=== PATIENT | female | born 1925 | race Caucasian/White ===

== ENCOUNTER 2016-12-28 08:38 | Emergency (ER) | payer MEDICARE, BC ==
--- NOTE | 2016-12-28 08:52 | EDM.PDOC ---
ED HPI SEIZURE COMPLAINT - General Chief Complaint: Syncope Stated Complaint: SYNCOPE Time Seen by Provider: 12/28/16 08:46 Source of Information: Reports: Patient History Limitations: Reports: No limitations - History of Present Illness INITIAL COMMENTS - FREE TEXT/NARRATIVE: 89-year-old female presents to the ED in the accompaniement of her daughter.She was at [facility] and seated when she suddenly passed out. She was unresponsive for about 30 seconds. She was quite pale and a little cool and clammy at the time. Know she is a diabetic and takes insulin.his blood sugars are checked every other day. They were not checked this morning. She received 14 units of Levemir insulin last evening. No insulin this morning. She has not had her breakfast yet this morning. She believes that the [facility] nurses gave her medications and insulin before she went to [facility]. She feels completely back to normal now. Patient's son-in-law and daughter carried her out of the [facility] but she was able to walk with their help. She was dressed warmly as it's quite cool today. She stayed in the seated position when she passed out and he did not lay her down. Bedside blood sugar here is 153.initial blood pressure here was 104 systolic. Orthostatic BPs are strongly positive with systolic falling as low as 83 with standing. Plan she'll be given 200 mL normal saline bolus. Then 150 mils per hour. Symptom Onset Date: 12/28/16 Symptom Onset Time: 08:20 Timing/Duration: Reports: seconds: (is unresponsive for a good 30 seconds.), resolved prior to arrival Event Occurred (Where): other ([facility]) Event (Witnessed/Unwitnessed): witnessed (by daughter and son-in-law) Location: Reports: generalized (complete loss of consciousness without any shaking to suggest seizure activity.) Severity: severe Context: Reports: other (prior to going to [facility]). Denies: recent ETOH, new/ change in medications, missed med dose(s), illness, trauma, photo stimulation, activity/exercise Pre Event Symptom(s): Reports: no other symptoms Event Symptoms: Reports: no other symptoms Post Event Symptoms: Reports: other (together with general weakness.). Denies: confused, combative, lethargic, headache, altered speech Associated Injuries: Reports: other (no injuries occurred as she remained seated during the episode.) Treatments STAMP COLLECTOR: Reports: Other (see below) (none) - Related Data Allergies/ADRs: Allergies Allergy/AdvReac Type Severity Reaction Status Date / Time No Known Allergies Allergy Verified 12/28/16 08:47 Home Meds: Home Meds Acetaminophen [Tylenol Extra Strength] 500 mg PO Q6HR PRN 07/27/16 [History] Ascorbic Acid [C-500] 500 mg PO DAILY 07/27/16 [History] Aspirin 81 mg PO DAILY 07/27/16 [History] B2/Vit A,C & E/Lut/Zeaxanth/Mn [Icaps] 1 each PO DAILY 07/27/16 [History] Carvedilol [Carvedilol] 1 tab PO BID 07/27/16 [History] Cyanocobalamin (Vitamin B-12) [Cyanocobalamin Injection] 1,000 mcg IJ ASDIRECTED 07/27/16 [History] Denosumab [Prolia] 60 mg SUBCUT ASDIRECTED 07/27/16 [History] Diltiazem HCl [Diltiazem 24Hr Cd] 1 tab PO DAILY 07/27/16 [History] Donepezil [Aricept] 5 mg PO BEDTIME 07/27/16 [History] Furosemide [Furosemide] 1 tab PO DAILY 07/27/16 [History] Furosemide [Furosemide] 1 tab PO WITHLUNCH 07/27/16 [History] Insulin Glarg,Human.Rec.Analog [LantUS Solostar] 14 units SQ BEDTIME 07/27/16 [ History] Iron Polysaccharide Complex [Poly-Iron] 150 mg PO DAILY 07/27/16 [History] Losartan [Cozaar] 1 tab PO DAILY 07/27/16 [History] Multivitamin [Daily Mirtha] 1 each PO DAILY 07/27/16 [History] Omeprazole [Omeprazole] 1 tab PO DAILY 07/27/16 [History] Travoprost [Travatan Z] 1 drop EYEBOTH BEDTIME 07/27/16 [History] atorvaSTATin [Lipitor] 20 mg PO BEDTIME 07/27/16 [History] glipiZIDE [Glipizide] 1 tab PO DAILY 07/27/16 [History] Past Medical History Cardiovascular History: Reports: Heart Failure, Hypertension Genitourinary History: Reports: Chronic renal insuffiency, Urinary incontinence (stress and urge component.) Musculoskeletal History: Reports: Osteoarthritis, Osteoporosis Neurological History: Reports: Alzheimers disease (mild) Endocrine/Metabolic History: Reports: Diabetes, type II - Past Surgical History Female Surgical History: Reports: Hysterectomy, Oophorectomy Social & Family History - Tobacco Use Smoking Status *Q: Never Smoker Second Hand Smoke Exposure: No - Caffeine Use Caffeine Use: Reports: Coffee - Recreational Drug Use Recreational Drug Use: No - Living Situation & Occupation Living situation: Reports: extended care facility Occupation: retired ED ROS GENERAL - Review of Systems Review Of Systems: See Below Constitutional: Reports: no symptoms, weakness. Denies: fever, chills, malaise , fatigue (still feels a little weak), decreased appetite, weight loss HEENT: Reports: No symptoms Respiratory: Reports: no symptoms Cardiovascular: Reports: No symptoms, Blood pressure problem, Dyspnea on exertion. Denies: Chest pain, Claudication, Edema, Lightheadedness, Orthopnea ( hypertension usually well-controlled with medication) Endocrine: Reports: fatigue GI/Abdominal: Reports: Constipation : Reports: frequency (stress and urge componentis on Lasix), incontinence Musculoskeletal: Reports: neck pain, shoulder pain, back pain, joint pain Skin: Reports: no symptoms (knees and hips.) Neurological: Reports: difficulty walking (walk slowly due to arthritis in her knees and hips.). Denies: numbness, pre-existing deficit, seizure, syncope, tingling (mild confusion at times), tremors, weakness, change in speech Psychiatric: Reports: No symptoms Hematologic/Lymphatic: Reports: no symptoms - Physical Exam Exam: See Below Exam Limited By: Other General Appearance: alert, WD/WN (quite pleasant. She tries to answer most questions to the best of her ability. Daughter fills in multiple blanks.), no apparent distress, other (does not feel cool or clammy.) Eye Exam: bilateral eye: normal inspection Throat/Mouth: Normal inspection, Normal lips, Normal oropharynx Head Exam: atraumatic, normocephalic Neck: normal inspection, supple, non-tender, full range of motion. No: lymphadenopathy (L), lymphadenopathy (R) Respiratory/Chest: no respiratory distress, lungs clear, normal breath sounds, no accessory muscle use Cardiovascular: normal peripheral pulses, regular rate, rhythm, no edema, no gallop, no JVD, no murmur GI/Abdominal: normal bowel sounds, soft, non tender, no organomegaly Neuro Exam (Abbreviated): alert, oriented, CN II-XII intact, normal cognition, no motor/sensory deficits Back Exam: normal inspection, full range of motion. No: CVA tenderness (L), CVA tenderness (R) Extremities: normal inspection, normal range of motion, no pedal edema, normal capillary refill, other Psychiatric: normal affect (these are both slightly warm to palpation.), normal mood Skin Exam: Warm, Dry, Intact, Normal color, No rash EKG INTERPRETATION EKG Date: 12/28/16 Time: 09:09 Rhythm: NSR Rate (beats/min): 59 [place]: normal P-wave: present QRS: other (early R wave transition.) ST-T: normal QT: prolonged (moderately prolonged) Course - Vital Signs Last Recorded V/S: Last Vital Signs Temp 36.1 C 12/28/16 08:47 Pulse 63 12/28/16 08:47 Resp 15 12/28/16 08:47 BP 122/42 L 12/28/16 08:47 Pulse Ox 93 L 12/28/16 09:22 Orthostatic Blood Pressure [ 83/47 Standing] Orthostatic Blood Pressure [ 98/43 Sitting] Orthostatic Blood Pressure [ 101/53 Supine] - Orders/Labs/Meds Orders: Active Orders 24 hr Category Date Time Status EKG Documentation Completion [RC] STAT Care 12/28/16 08:53 Active Chest 1V Frontal [CR] Stat Exams 12/28/16 08:53 Taken CULTURE BLOOD [BC] Stat Lab 12/28/16 10:45 Received CULTURE BLOOD [BC] Stat Lab 12/28/16 10:52 Received Sodium Chloride 0.9% [Normal Saline] 1,000 ml Med 12/28/16 09:00 Active IV ASDIRECTED Blood Culture x2 Reflex Set [OM.PC] Stat Oth 12/28/16 10:33 Ordered Medication Orders Sodium Chloride (Normal Saline) 1,000 mls @ 150 mls/hr IV ASDIRECTED CARLEY Last Admin: 12/28/16 09:19 Dose: 150 mls/hr Labs: Laboratory Tests 12/28/16 12/28/16 12/28/16 Range/Units 08:45 08:55 08:55 WBC 9.17 (3.98-10.04) K/mm3 RBC 4.14 (3.98-5.22) M/mm3 Hgb 12.6 (11.2-15.7) gm/L Hct 39.4 (34.1-44.9) % MCV 95.2 H (79.4-94.8) fl MCH 30.4 (25.6-32.2) pg MCHC 32.0 L (32.2-35.5) g/dl RDW Std Deviation 49.0 H (36.4-46.3) fL Plt Count 194 (182-369) K/mm3 MPV 10.5 (9.4-12.3) fl Neutrophils % (Manual) 66 H (40-60) % Band Neutrophils % 2 (0-10) % Lymphocytes % (Manual) 17 L (20-40) % Atypical Lymphs % 0 % Monocytes % (Manual) 12 H (2-10) % Eosinophils % (Manual) 3 (0.7-5.8) % Basophils % (Manual) 0 L (0.1-1.2) Platelet Estimate Adequate RBC Morph Comment Normal PT 10.7 (8.0-13.0) SECONDS INR 0.98 D-Dimer, Quantitative (0.19-0.59) mg/L Sodium (136-145) mEq/L Potassium (3.5-5.1) mEq/L Chloride (98-107) mEq/L Carbon Dioxide (21-32) mEq/L Anion Gap (5-15) BUN (7-18) mg/dL Creatinine (0.55-1.02) mg/dL Est Cr Clr Drug Dosing mL/min Estimated GFR (MDRD) (>60) mL/min BUN/Creatinine Ratio (14-18) Glucose (83-115) mg/dL POC Glucose 158 H (83-110) mg/dL Calcium (8.5-10.1) mg/dL Total Bilirubin (0.2-1.0) mg/dL AST (15-37) U/L ALT (14-59) U/L Alkaline Phosphatase (46-116) U/L CK-MB (CK-2) (0-3.6) ng/ml Troponin I (0.00-0.056) ng/mL B-Natriuretic Peptide (0-100) pg/mL Total Protein (6.4-8.2) g/dl Albumin (3.4-5.0) g/dl Globulin gm/dL Albumin/Globulin Ratio (1-2) Urine Color (Yellow) Urine Appearance (Clear) Urine pH (5.0-8.0) Ur Specific [place] (1.005-1.030) Urine Protein (Negative) Urine Glucose (UA) (Negative) Urine Ketones (Negative) Urine Occult Blood (Negative) Urine Nitrite (Negative) Urine Bilirubin (Negative) Urine Urobilinogen (0.2-1.0) Ur Leukocyte Esterase (Negative) Urine RBC (0-5) /hpf Urine WBC (0-5) /hpf Ur Squamous Epith Cells (0-5) /hpf Urine Bacteria (FEW) /hpf Urine Mucus (FEW) /hpf 12/28/16 12/28/16 12/28/16 Range/Units 08:55 08:55 08:55 WBC (3.98-10.04) K/mm3 RBC (3.98-5.22) M/mm3 Hgb (11.2-15.7) gm/L Hct (34.1-44.9) % MCV (79.4-94.8) fl MCH (25.6-32.2) pg MCHC (32.2-35.5) g/dl RDW Std Deviation (36.4-46.3) fL Plt Count (182-369) K/mm3 MPV (9.4-12.3) fl Neutrophils % (Manual) (40-60) % Band Neutrophils % (0-10) % Lymphocytes % (Manual) (20-40) % Atypical Lymphs % % Monocytes % (Manual) (2-10) % Eosinophils % (Manual) (0.7-5.8) % Basophils % (Manual) (0.1-1.2) Platelet Estimate RBC Morph Comment PT (8.0-13.0) SECONDS INR D-Dimer, Quantitative 0.64 H (0.19-0.59) mg/L Sodium 140 (136-145) mEq/L Potassium 4.1 (3.5-5.1) mEq/L Chloride 100 (98-107) mEq/L Carbon Dioxide 30 (21-32) mEq/L Anion Gap 14.1 (5-15) BUN 27 H (7-18) mg/dL Creatinine 1.4 H (0.55-1.02) mg/dL Est Cr Clr Drug Dosing 21.55 mL/min Estimated GFR (MDRD) 35 (>60) mL/min BUN/Creatinine Ratio 19.3 H (14-18) Glucose 153 H (83-115) mg/dL POC Glucose (83-110) mg/dL Calcium 9.1 (8.5-10.1) mg/dL Total Bilirubin 0.5 (0.2-1.0) mg/dL AST 58 H (15-37) U/L ALT 86 H (14-59) U/L Alkaline Phosphatase 222 H (46-116) U/L CK-MB (CK-2) 0.9 (0-3.6) ng/ml Troponin I < 0.017 (0.00-0.056) ng/mL B-Natriuretic Peptide 108 H (0-100) pg/mL Total Protein 7.7 (6.4-8.2) g/dl Albumin 3.2 L (3.4-5.0) g/dl Globulin 4.5 gm/dL Albumin/Globulin Ratio 0.7 L (1-2) Urine Color (Yellow) Urine Appearance (Clear) Urine pH (5.0-8.0) Ur Specific [place] (1.005-1.030) Urine Protein (Negative) Urine Glucose (UA) (Negative) Urine Ketones (Negative) Urine Occult Blood (Negative) Urine Nitrite (Negative) Urine Bilirubin (Negative) Urine Urobilinogen (0.2-1.0) Ur Leukocyte Esterase (Negative) Urine RBC (0-5) /hpf Urine WBC (0-5) /hpf Ur Squamous Epith Cells (0-5) /hpf Urine Bacteria (FEW) /hpf Urine Mucus (FEW) /hpf 12/28/16 Range/Units 11:05 WBC (3.98-10.04) K/mm3 RBC (3.98-5.22) M/mm3 Hgb (11.2-15.7) gm/L Hct (34.1-44.9) % MCV (79.4-94.8) fl MCH (25.6-32.2) pg MCHC (32.2-35.5) g/dl RDW Std Deviation (36.4-46.3) fL Plt Count (182-369) K/mm3 MPV (9.4-12.3) fl Neutrophils % (Manual) (40-60) % Band Neutrophils % (0-10) % Lymphocytes % (Manual) (20-40) % Atypical Lymphs % % Monocytes % (Manual) (2-10) % Eosinophils % (Manual) (0.7-5.8) % Basophils % (Manual) (0.1-1.2) Platelet Estimate RBC Morph Comment PT (8.0-13.0) SECONDS INR D-Dimer, Quantitative (0.19-0.59) mg/L Sodium (136-145) mEq/L Potassium (3.5-5.1) mEq/L Chloride (98-107) mEq/L Carbon Dioxide (21-32) mEq/L Anion Gap (5-15) BUN (7-18) mg/dL Creatinine (0.55-1.02) mg/dL Est Cr Clr Drug Dosing mL/min Estimated GFR (MDRD) (>60) mL/min BUN/Creatinine Ratio (14-18) Glucose (83-115) mg/dL POC Glucose (83-110) mg/dL Calcium (8.5-10.1) mg/dL Total Bilirubin (0.2-1.0) mg/dL AST (15-37) U/L ALT (14-59) U/L Alkaline Phosphatase (46-116) U/L CK-MB (CK-2) (0-3.6) ng/ml Troponin I (0.00-0.056) ng/mL B-Natriuretic Peptide (0-100) pg/mL Total Protein (6.4-8.2) g/dl Albumin (3.4-5.0) g/dl Globulin gm/dL Albumin/Globulin Ratio (1-2) Urine Color Yellow (Yellow) Urine Appearance Slt cloudy H (Clear) Urine pH 7.0 (5.0-8.0) Ur Specific [place] 1.020 (1.005-1.030) Urine Protein Negative (Negative) Urine Glucose (UA) Negative (Negative) Urine Ketones Negative (Negative) Urine Occult Blood 2+ H (Negative) Urine Nitrite Negative (Negative) Urine Bilirubin Negative (Negative) Urine Urobilinogen 1.0 (0.2-1.0) Ur Leukocyte Esterase 2+ H (Negative) Urine RBC 75-100 H (0-5) /hpf Urine WBC >100 H (0-5) /hpf Ur Squamous Epith Cells 0-5 (0-5) /hpf Urine Bacteria Many H (FEW) /hpf Urine Mucus Not seen (FEW) /hpf Meds: Medications Generic Name Dose Route Start Last Admin Trade Name Radha PRN Reason Stop Dose Admin Sodium Chloride 1,000 mls @ 150 mls/hr 12/28/16 09:00 12/28/16 09:19 Normal Saline IV 150 mls/hr ASDIRECTED CARLEY Administration Discontinued Medications Generic Name Dose Route Start Last Admin Trade Name Radha PRN Reason Stop Dose Admin Sodium Chloride 250 mls @ 999 mls/hr 12/28/16 09:25 Normal Saline IV 12/28/16 09:40 .BOLUS ONE Levofloxacin/Dextrose 750 mg/ 150 mls @ 100 mls/hr 12/28/16 10:33 12/28/16 11 :25 Premix IV 12/28/16 12:02 Not Given ONETIME ONE Sodium Chloride 200 mls @ 999 mls/hr 12/28/16 11:10 Normal Saline IV 12/28/16 11:22 .BOLUS ONE - Radiology Interpretation Free Text/Narrative:: 89-year-old female presents the ED after passing out while seated in [facility] this morning. She passed out for at least 30 seconds. History suggests that she was with her daughter and son-in-law. [facility] She receives both insulin and diabetic medications for diabetes control. Apparently she did not have any breakfast. She did have all her medications which included antihypertensives. On examination here her vital signs are stable with a bedside blood sugar 153. Blood pressure initially was 104/56 She is in sinus rhythm. No chest pain complaints. No neurological deficits. Question of a hypoglycemic reading and with adrenaline response returned to a normal blood sugar. Plan orthostatic BPs will be done. Routine labs will be done to include cardiac markers. ECG will be done IV will be normal saline 150 mils per hour and we'll get her some breakfast. - Re-Assessments/Exams Free Text/Narrative Re-Assessment/Exam: 12/28/16 09:31orthostatic BPs are strongly positive with a systolic falling as low as 83 on standing. Associated dizziness. Plan she'll be given 200 mils normal saline bolus. Will give her a diabetic breakfast tray. 12/28/16 10:28 blood pressure remains low at 96/44. Sinus bradycardia at 55 per minute.is x-ray revealed moderate cardiomegaly. There is slight elevation of the right hemidiaphragm. Mild diffuse vascular congestion pattern. 12/28/16 10:39 labs revealed a normal white count of 9.17 with 66% neutrophils and 2% bands. Hemoglobin is 12.6 hematocrit of 39.4 platelets 194,000. Coags are normal with a PT of 10.7 and 8 INR 0.98. D-dimer is mildly elevated 0.64 but age-adjusted is well within normal range. Serum sodium is 140 potassium 4.1 port 100 bicarbonate is 30. Anion gap is 14.1 BUN is 27. AST is mildly elevated at 58 .ALT mildly elevated at 86. Alkaline phosphatase is elevated to 22. Troponin is less than 0.017 CK-MB less than 0.9. Due to the look of her x- ray I will order a BNP. It looks like she is just on to much medication to lower her blood pressure acutely this morning causing her to have a hypotensive episode and transient loss of consciousness. She ate all of her breakfast without any difficulties. 12/28/16 11:00 Will get up and retest her orthostatic BPs. 12/28/16 11:20she was found to still be a little orthostatic with BP dropping to 88 systolic standing. It was 106 sitting. We'll give her another 200 mils of normal saline. Her BNP did come back at 108. Looking at her antihypertensives she is on carvedilol 6.25 mg PEG twice a day Cardizem 120 mg once daily and losartan 50 mg once daily morning. I will change the losartan to evening dose. Her blood pressure probably stays right around 100 205. If she remains hypotensive she required discontinuation of will certain I suspect. A combination of high-dose Lasix and Cardizem in the morning is likely continuing to hypotension over the next hour or 2. Followup with personal physician if any further problems occur Departure - Departure Time of Disposition: 11:22 Disposition: Home, Self-Care 01 Condition: fair Clinical Impression: Syncope due to orthostatic hypotension, Volume depletion Syncope Qualifiers: Syncope type: unspecified Qualified Code(s): R55 - Syncope and collapse Instructions: Orthostatic Hypotension, Syncope, [id number] Referrals: Bob Ling MD [Primary Care Provider] - Forms: ED Department Discharge Additional Instructions: evaluation emergent today in regards to fainting spell that occurred while seated in [facility] this morning. Loss of consciousness estimated to be around 30 seconds. Identified to have a very low blood pressure upon arrival in the emergency room. You received your normal dosages of medications this morning without eating any breakfast and then off to [facility]. Appears that the current combination of medications is too much at one time. You received IV fluids while in the ED to improve your blood pressure back towards normal. I would suggest at this time that you continue the carvedilol 6.25 mg twice daily as per usual. Cardizem 120 mg should perhaps be taken at suppertime instead of the am. . Losartan 50 mg to be continued in the morning. I believe a combination of high-dose Lasix in the morning with the cardia side likely caused low blood pressure and cause of collapse this morning.followup with personal physician within the next 7-10 days for blood pressure reviewed. Pressure should be checked both lying seated and standing. - My Orders Last 24 Hours: My Active Orders 12/28/16 08:53 EKG Documentation Completion [RC] STAT Chest 1V Frontal [CR] Stat 12/28/16 09:00 Sodium Chloride 0.9% [Normal Saline] 1,000 ml IV ASDIRECTED 12/28/16 10:33 Blood Culture x2 Reflex Set [OM.PC] Stat 12/28/16 10:45 CULTURE BLOOD [BC] Stat 12/28/16 10:52 CULTURE BLOOD [BC] Stat - Assessment/Plan Last 24 Hours: My Active Orders 12/28/16 08:53 EKG Documentation Completion [RC] STAT Chest 1V Frontal [CR] Stat 12/28/16 09:00 Sodium Chloride 0.9% [Normal Saline] 1,000 ml IV ASDIRECTED 12/28/16 10:33 Blood Culture x2 Reflex Set [OM.PC] Stat 12/28/16 10:45 CULTURE BLOOD [BC] Stat 12/28/16 10:52 CULTURE BLOOD [BC] Stat
[2016-12-28] MEDS ORDERED: Sodium Chloride 0.9% 1,000 ML IV SCH (09:00)
[2016-12-28 09:04] VITALS: BP 122/42
[2016-12-28] MEDS ORDERED: Sodium Chloride 0.9% 250 ML IV ONE (09:25)
[2016-12-28] MEDS ORDERED: Levofloxacin/Dextrose 5%-Water 750 MG in Premix Bag 1 BAG IV ONE (10:33)
[2016-12-28] MEDS ORDERED: Sodium Chloride 0.9% 200 ML IV ONE (11:10)
--- NOTE | 2016-12-29 07:15 | CR ---
Chest: Portable view of the chest was obtained. Comparison: Previous chest x-ray of 08/07/13. Heart is enlarged. Pulmonary vessels are felt to be within normal limits. Slight interstitial change is seen felt to be chronic. No acute infiltrates are seen. 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 Previous resection of the distal left clavicle is seen. Bony structures are osteopenic. Impression: 1. Findings as described above felt to be stable. 2. Nothing acute is identified on portable chest x-ray. Diagnostic code #2
== END 2016-12-28 12:10 | disposition home or self-care (01) ==
LOC: JD.ED 08:38
DX: I95.1 Orthostatic hypotension (principal); E86.9 Volume depletion, unspecified; I13.0 Hypertensive heart and chronic kidney disease with heart failure and stage 1 through stage 4 chronic kidney disease, or unspecified chronic kidney disease; E11.22 Type 2 diabetes mellitus with diabetic chronic kidney disease; N18.9 Chronic kidney disease, unspecified; I50.9 Heart failure, unspecified; Z79.4 Long term (current) use of insulin; G30.9 Alzheimer's disease, unspecified; F02.80 Dementia in other diseases classified elsewhere, unspecified severity, without behavioral disturbance, psychotic disturbance, mood disturbance, and anxiety; Z79.82 Long term (current) use of aspirin; Z79.899 Other long term (current) drug therapy; K59.00 Constipation, unspecified; R35.0 Frequency of micturition; R32 Unspecified urinary incontinence; M54.2 Cervicalgia; M25.519 Pain in unspecified shoulder; M54.9 Dorsalgia, unspecified; M17.9 Osteoarthritis of knee, unspecified; M16.10 Unilateral primary osteoarthritis, unspecified hip
CPT/HCPCS: 36415; 71010; 80053; 81001; 82553; 82962; 83880; 84484; 85025; 85379; 85610; 87040; 87086; 93005; 96360; 96361; 99284; J7040; 87088; 87186; 99285

== ENCOUNTER 2017-07-24 08:54 | Inpatient (IN) | payer MEDICARE, BC ==
--- NOTE | 2017-07-24 09:07 | EDM.PDOC ---
ED HPI GENERAL MEDICAL PROBLEM - General Chief Complaint: Fever Stated Complaint: [facility] Time Seen by Provider: 07/24/17 09:06 - History of Present Illness INITIAL COMMENTS - FREE TEXT/NARRATIVE: 89-year-old female presents to the ED from [place] [facility]. She apparently spiked a fever during the night. She was fine yesterday. History from the patient is very limited because of dementia. He answers I think I'm okay to most questions. Last time she was seen through the ED with fever she had a significant urinary tract infection growing out Klebsiella pneumoniae. She denies any dysuria urgency or frequency but she is incontinent a good deal of time. She denies cough or sputum production. Daughter states that she was okay last night when she seen her. Barely she did receive Tylenol sometime this morning but were not sure when.BP on arrival is 92/41. Is currently 89/70. Heart rate is 62 and sinus. Onset: Today, Other Onset Date: 07/24/17 Duration: Hour(s): Location: Reports: Generalized (fever with low blood pressure) Quality: Reports: Other (denies any pain.) Improves with: Reports: None Worsens with: Reports: None Context: Reports: Other (usually gets around without a walker). Denies: Activity, Exercise, Lifting, Sick Contact, Trauma Associated Symptoms: Reports: Confusion ( or cane.), Malaise, Shortness of Breath (chronically). Denies: Chest Pain (significant confusion at this time.) , Cough, cough w sputum, Nausea/Vomiting, Rash, Seizure Treatments SUPERVISOR LOADING: Reports: Acetaminophen (were not sure what time she was given this this morning.) - Related Data Allergies Allergy/AdvReac Type Severity Reaction Status Date / Time Penicillins Allergy Cannot Verified 07/24/17 12:43 Remember Home Meds: Home Meds Acetaminophen [Tylenol Extra Strength] 500 mg PO Q6HR PRN 07/27/16 [History] Ascorbic Acid [C-500] 500 mg PO DAILY 07/27/16 [History] Aspirin 81 mg PO DAILY 07/27/16 [History] B2/Vit A,C & E/Lut/Zeaxanth/Mn [Icaps] 1 each PO DAILY 07/27/16 [History] Carvedilol [Carvedilol] 1 tab PO BID 07/27/16 [History] Cyanocobalamin (Vitamin B-12) [Cyanocobalamin Injection] 1,000 mcg IJ ASDIRECTED 07/27/16 [History] Denosumab [Prolia] 60 mg SUBCUT ASDIRECTED 07/27/16 [History] Diltiazem HCl [Diltiazem 24Hr Cd] 1 tab PO DAILY 07/27/16 [History] Donepezil [Aricept] 5 mg PO BEDTIME 07/27/16 [History] Furosemide [Furosemide] 1 tab PO DAILY 07/27/16 [History] Furosemide [Furosemide] 1 tab PO WITHLUNCH 07/27/16 [History] Insulin Glarg,Human.Rec.Analog [LantUS Solostar] 14 units SQ BEDTIME 07/27/16 [ History] Iron Polysaccharide Complex [Poly-Iron] 150 mg PO DAILY 07/27/16 [History] Losartan [Cozaar] 1 tab PO DAILY 07/27/16 [History] Multivitamin [Daily Mirtha] 1 each PO DAILY 07/27/16 [History] Omeprazole [Omeprazole] 1 tab PO DAILY 07/27/16 [History] Travoprost [Travatan Z] 1 drop EYEBOTH BEDTIME 07/27/16 [History] atorvaSTATin [Lipitor] 20 mg PO BEDTIME 07/27/16 [History] glipiZIDE [Glipizide] 1 tab PO DAILY 07/27/16 [History] Past Medical History Cardiovascular History: Reports: Heart Failure, Hypertension Genitourinary History: Reports: Chronic Renal Insuffiency, Urinary Incontinence , UTI, Recurrent Musculoskeletal History: Reports: Osteoarthritis, Osteoporosis Neurological History: Reports: Alzheimers Disease Endocrine/Metabolic History: Reports: Diabetes, Type II, Osteoporosis ( currently on osteoporosis treatment.), Vitamin D Deficiency - Past Surgical History Female Surgical History: Reports: Hysterectomy, Oophorectomy Social & Family History - Tobacco Use Smoking Status *Q: Never Smoker Second Hand Smoke Exposure: No - Caffeine Use Caffeine Use: Reports: Coffee - Recreational Drug Use Recreational Drug Use: No - Living Situation & Occupation Living situation: Reports: Extended Care Facility Occupation: Retired Social History Comment[facility] ROS GENERAL - Review of Systems Review Of Systems: Unable To Obtain (not able to obtain with any degree of certainty as the patient has significant confusion and organic brain disease. History was obtained primarily from the daughter which was limited.) ED EXAM, SEPSIS - Physical Exam Exam: See Below Exam Limited By: Altered Mental Status General Appearance: Alert, WD/WN, No Apparent Distress, Other (she does feel quite warm to palpation particularly her hands and abdomen.) Eye Exam: Bilateral Eye: Normal Inspection Throat/Mouth: Other (tongue is mildly dry and coated. She wears dentures.) Head: Atraumatic, Normocephalic Neck: Normal Inspection, Supple, Non-Tender, Full Range of Motion. No: Carotid Bruit, Lymphadenopathy (L), Lymphadenopathy (R) Respiratory/Chest: No Respiratory Distress, Lungs Clear, Normal Breath Sounds, No Accessory Muscle Use, Chest Non-Tender, Respiratory Distress Cardiovascular: Regular Rate, Rhythm, No Edema, No Gallop, No Murmur, No Rub. No: Normal Peripheral Pulses Peripheral Pulses: 1+: Posterior Tibial (L), Posterior Tibial (R), Dorsalis Pedis (L), Dorsalis Pedis (R) GI/Abdominal Exam: Normal Bowel Sounds, Soft, Non-Tender, No Organomegaly, Other (mildly obese. Evidence of previous cholecystectomy with open surgery.) Back: Normal Inspection, Full Range of Motion. No: CVA Tenderness (L), CVA Tenderness (R) Extremities: Normal Inspection, Normal Range of Motion, Non-Tender, No Pedal Edema Neurological: Alert, Oriented, CN II-XII Intact, Other (patient is pleasantly confused.) Psychiatric: Normal Affect, Normal Mood Skin: Warm, Dry, Intact, Normal Color, No Rash EKG INTERPRETATION EKG Date: 07/24/17 Time: 09:30 Rhythm: NSR Rate (Beats/Min): 64 [place]: Normal P-Wave: Present QRS: Normal ST-T: Other (nonspecific T-wave flattening in the anterio lateral leads. No signs of ischemia) QT: Prolonged (mildly prolonged) Course - Vital Signs Last Recorded V/S: Last Vital Signs Temp 37.3 C 07/24/17 09:41 Pulse 68 07/24/17 09:05 Resp 12 07/24/17 09:05 BP 92/41 L 07/24/17 09:05 Pulse Ox 95 07/24/17 09:05 - Orders/Labs/Meds Orders: Active Orders 24 hr Category Date Time Status EKG Documentation Completion [RC] STAT Care 07/24/17 09:17 Active Abdomen Ltd [US] Stat Exams 07/24/17 11:06 Taken CULTURE BLOOD [BC] Stat Lab 07/24/17 10:00 Received CULTURE BLOOD [BC] Stat Lab 07/24/17 10:15 Received CULTURE URINE [RM] Stat Lab 07/24/17 09:25 Received Sodium Chloride 0.9% [Normal Saline] 1,000 ml Med 07/24/17 09:15 Active IV ASDIRECTED Blood Culture x2 Reflex Set [OM.PC] Stat Oth 07/24/17 09:18 Ordered Medication Orders Sodium Chloride (Normal Saline) 1,000 mls @ 150 mls/hr IV ASDIRECTED CARLEY Last Admin: 07/24/17 09:42 Dose: 150 mls/hr Labs: Laboratory Tests 07/24/17 07/24/17 07/24/17 Range/Units 09:25 10:00 10:00 WBC 13.70 H (3.98-10.04) K/mm3 RBC 3.74 L (3.98-5.22) M/mm3 Hgb 11.3 (11.2-15.7) gm/L Hct 35.7 (34.1-44.9) % MCV 95.5 H (79.4-94.8) fl MCH 30.2 (25.6-32.2) pg MCHC 31.7 L (32.2-35.5) g/dl RDW Std Deviation 47.1 H (36.4-46.3) fL Plt Count 195 (182-369) K/mm3 MPV 9.9 (9.4-12.3) fl Neutrophils % (Manual) 84 H (40-60) % Band Neutrophils % 6 (0-10) % Lymphocytes % (Manual) 7 L (20-40) % Atypical Lymphs % 0 % Monocytes % (Manual) 2 (2-10) % Eosinophils % (Manual) 0 L (0.7-5.8) % Basophils % (Manual) 1 (0.1-1.2) Platelet Estimate Adequate Plt Morphology Comment Normal Anisocytosis 1+ slight Microcytosis 1+ slight RBC Morph Comment Not Reportable PT 11.2 (8.0-13.0) SECONDS INR 1.03 Sodium (136-145) mEq/L Potassium (3.5-5.1) mEq/L Chloride (98-107) mEq/L Carbon Dioxide (21-32) mEq/L Anion Gap (5-15) BUN (7-18) mg/dL Creatinine (0.55-1.02) mg/dL Est Cr Clr Drug Dosing mL/min Estimated GFR (MDRD) (>60) mL/min BUN/Creatinine Ratio (14-18) Glucose (83-115) mg/dL Lactic Acid (0.4-2.0) mmol/L Calcium (8.5-10.1) mg/dL Magnesium (1.8-2.4) mg/dl Total Bilirubin (0.2-1.0) mg/dL GGT (5-55) U/L AST (15-37) U/L ALT (14-59) U/L Alkaline Phosphatase (46-116) U/L CK-MB (CK-2) (0-3.6) ng/ml Troponin I (0.00-0.056) ng/mL C-Reactive Protein (<1.0) mg/dL NT-Pro-B Natriuret Pep (0-450) pg/mL Total Protein (6.4-8.2) g/dl Albumin (3.4-5.0) g/dl Globulin gm/dL Albumin/Globulin Ratio (1-2) Urine Color Light yellow (Yellow) Urine Appearance Slt cloudy H (Clear) Urine pH 7.0 (5.0-8.0) Ur Specific [place] 1.020 (1.005-1.030) Urine Protein 1+ H (Negative) Urine Glucose (UA) Negative (Negative) Urine Ketones Negative (Negative) Urine Occult Blood Trace-intact H (Negative) Urine Nitrite Negative (Negative) Urine Bilirubin Negative (Negative) Urine Urobilinogen 1.0 (0.2-1.0) Ur Leukocyte Esterase Trace H (Negative) Urine RBC 0-5 (0-5) /hpf Urine WBC 5-10 H (0-5) /hpf Ur Epithelial Cells 0-5 (0-5) /hpf Urine Bacteria Many H (FEW) /hpf Urine Mucus Not seen (FEW) /hpf 07/24/17 07/24/17 07/24/17 Range/Units 10:00 10:00 10:06 WBC (3.98-10.04) K/mm3 RBC (3.98-5.22) M/mm3 Hgb (11.2-15.7) gm/L Hct (34.1-44.9) % MCV (79.4-94.8) fl MCH (25.6-32.2) pg MCHC (32.2-35.5) g/dl RDW Std Deviation (36.4-46.3) fL Plt Count (182-369) K/mm3 MPV (9.4-12.3) fl Neutrophils % (Manual) (40-60) % Band Neutrophils % (0-10) % Lymphocytes % (Manual) (20-40) % Atypical Lymphs % % Monocytes % (Manual) (2-10) % Eosinophils % (Manual) (0.7-5.8) % Basophils % (Manual) (0.1-1.2) Platelet Estimate Plt Morphology Comment Anisocytosis Microcytosis RBC Morph Comment PT (8.0-13.0) SECONDS INR Sodium 141 (136-145) mEq/L Potassium 4.0 (3.5-5.1) mEq/L Chloride 104 (98-107) mEq/L Carbon Dioxide 27 (21-32) mEq/L Anion Gap 14.0 (5-15) BUN 24 H (7-18) mg/dL Creatinine 1.3 H (0.55-1.02) mg/dL Est Cr Clr Drug Dosing 24.27 mL/min Estimated GFR (MDRD) 39 (>60) mL/min BUN/Creatinine Ratio 18.5 H (14-18) Glucose 151 H (83-115) mg/dL Lactic Acid 2.2 H (0.4-2.0) mmol/L Calcium 8.6 (8.5-10.1) mg/dL Magnesium 1.9 (1.8-2.4) mg/dl Total Bilirubin 0.7 (0.2-1.0) mg/dL GGT 122 H (5-55) U/L AST 201 H (15-37) U/L ALT 169 H (14-59) U/L Alkaline Phosphatase 207 H (46-116) U/L CK-MB (CK-2) 0.8 (0-3.6) ng/ml Troponin I 0.194 H* (0.00-0.056) ng/mL C-Reactive Protein 1.0 (<1.0) mg/dL NT-Pro-B Natriuret Pep 603 H (0-450) pg/mL Total Protein 7.0 (6.4-8.2) g/dl Albumin 3.0 L (3.4-5.0) g/dl Globulin 4.0 gm/dL Albumin/Globulin Ratio 0.8 L (1-2) Urine Color (Yellow) Urine Appearance (Clear) Urine pH (5.0-8.0) Ur Specific [place] (1.005-1.030) Urine Protein (Negative) Urine Glucose (UA) (Negative) Urine Ketones (Negative) Urine Occult Blood (Negative) Urine Nitrite (Negative) Urine Bilirubin (Negative) Urine Urobilinogen (0.2-1.0) Ur Leukocyte Esterase (Negative) Urine RBC (0-5) /hpf Urine WBC (0-5) /hpf Ur Epithelial Cells (0-5) /hpf Urine Bacteria (FEW) /hpf Urine Mucus (FEW) /hpf Meds: Medications Generic Name Dose Route Start Last Admin Trade Name Freq PRN Reason Stop Dose Admin Sodium Chloride 1,000 mls @ 150 mls/hr 07/24/17 09:15 07/24/17 09:42 Normal Saline IV 150 mls/hr ASDIRECTED CARLEY Administration Discontinued Medications Generic Name Dose Route Start Last Admin Trade Name Freq PRN Reason Stop Dose Admin Ceftriaxone Sodium 1 gm/ 100 mls @ 200 mls/hr 07/24/17 12:08 07/24/17 12:45 Sodium Chloride IV 07/24/17 12:37 200 mls/hr ONETIME ONE Administration Ibuprofen 600 mg 07/24/17 09:16 07/24/17 09:41 Motrin PO 07/24/17 09:17 600 mg ONETIME ONE Administration - Radiology Interpretation Free Text/Narrative:: 89-year-old female presents to the ED per ambulance from [place] which is an assisted living program.apparently she spiked a fever during the night. This is contributed to increased confusion this morning. She has multiple comorbidities. She has known ischemic heart disease and congestive heart failure. She is using insulin for type 2 diabetes control for many years. She has known renal insufficiency. She has known recurrent urinary tract infections. Rotation her blood pressure is low at 89/59. Heart rate is 72 and sinus sats are 93% on room air. Patient is quite warm to palpation will be given Motrin 600 mg by mouth. IV started with normal saline at 150 mils per hour she will receive a 250 milk bolus because of the hypotension. Lab work to include blood cultures 2 and lactic acid. Urinalysis will be obtained by catheterization. One view chest x-ray will be done portably. - Re-Assessments/Exams Free Text/Narrative Re-Assessment/Exam: 07/24/17 10:10 chest x-ray --one view portable revealsmoderate cardiomegaly. Blunting of left costophrenic angle. There is diffuse vascular congestion poor inspirational film.her ECG had revealed sinus rhythm at 64 per minute with no signs of ischemia but diffuse nonspecific changes throughout the baseline with T -wave flattening anterior lateral leads 07/24/17 10:54:Labs are back. White cell count is 13.70 with a left shift of 84 % neutrophils and 6% band cells. Hemoglobin is low at 11.3 with hematocrit of 35.7. MCV is mildly elevated at 95.5. Platelet count normal 195,000. Coags reveal a PT of 11.2 and INR 1.03. Chemistry shows a sodium of 141 potassium 4.0. Cord 104 bicarbonate 27. Anion gap normal at 14.0 BUNs slightly elevated at 24. Creatinine 1.3. EGFR is 39. Glucose is 151. AST is elevated at 201 with ALT of 169 and alk phosphatase elevated at 207. Reason for this is unclear. Is unlikely to be due to hepatic vascular congestion. I will have a GGT ordered to make sure the alkaline phosphatase is coming from the liver. Otherwise imaging of her liver is indicated. Troponin I is 0.194 i.e. elevated suggesting recent myocardial infarction. CK-MB fraction 0.8. CRP is less than 1.0 BNP is 603 which is only mildly elevated. Urinalysis shows slightly cloudy with 5-10+5 per field and many bacteria. Urine culture ordered.I will order an ultrasound on her liver to see if we can determine if there is dilated hepatic ducts as well as potential for metastatic disease. 07/24/17 11:47 Family members are back and I was able to speak with 2 daughters.they do not have power of patent prosecution attorney the other sister does whom is in [place]. They will try and determine her CODE STATUS is whether or not she is DO NOT RESUSCITATE and whether or not they wish to have her sent out for cardiology consultation. 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 07/24/17 12:10 lactic acid is elevated at 2.2. Her GGT was elevated 122 confirming the elevated alk phosphatase is coming out of her liver. 07/24/17 13:49ultrasound of the liver has been completed. No signs of intrahepatic biliary tree dilatation. Common bile duct measures 6 mm there is evidence of air in the biliary tree consistent with previous cholecystectomy. No stones or dilatation of the common bile duct visualized.family is now decided that they will allow her to be admitted here and are unlikely to want to pursue cardiology evaluation. They elected for medical management of her suspected recent myocardial infarction. I will therefore contact Dr. Rice-- senior talent management consultant hospitalist in this regard. Departure - Departure Time of Disposition: 14:00 Disposition: Admitted As Inpatient 68 Condition: Fair Clinical Impression: Abnormal transaminases, Elevated troponin, Non-STEMI (non-ST elevated myocardial infarction) Fever Qualifiers: Encounter type: initial encounter Urinary tract infection Qualifiers: Urinary tract infection type: acute pyelonephritis Qualified Code(s): N10 - Acute pyelonephritis CHF (congestive heart failure) Qualifiers: Congestive heart failure type: diastolic Congestive heart failure chronicity: acute on chronic Qualified Code(s): I50.33 - Acute on chronic diastolic ( congestive) heart failure Dementia Qualifiers: Dementia type: Alzheimer's disease Alzheimer's disease onset: late-onset Dementia behavioral disturbance: without behavioral disturbance Qualified Code(s ): G30.1 - Alzheimer's disease with late onset; F02.80 - Dementia in other diseases classified elsewhere without behavioral disturbance; F02.80 - Dementia in other diseases classified elsewhere without behavioral disturbance; F02.80 - Dementia in other diseases classified elsewhere without behavioral disturbance - Discharge Information Referrals: Bob Ling MD [Primary Care Provider] - Forms: ED Department Discharge - My Orders Last 24 Hours: My Active Orders 07/24/17 09:15 Sodium Chloride 0.9% [Normal Saline] 1,000 ml IV ASDIRECTED 07/24/17 09:17 EKG Documentation Completion [RC] STAT 07/24/17 09:18 Blood Culture x2 Reflex Set [OM.PC] Stat 07/24/17 09:25 CULTURE URINE [RM] Stat 07/24/17 10:00 CULTURE BLOOD [BC] Stat 07/24/17 10:15 CULTURE BLOOD [BC] Stat 07/24/17 11:06 Abdomen Ltd [US] Stat - Assessment/Plan Last 24 Hours: My Active Orders 07/24/17 09:15 Sodium Chloride 0.9% [Normal Saline] 1,000 ml IV ASDIRECTED 07/24/17 09:17 EKG Documentation Completion [RC] STAT 07/24/17 09:18 Blood Culture x2 Reflex Set [OM.PC] Stat 07/24/17 09:25 CULTURE URINE [RM] Stat 07/24/17 10:00 CULTURE BLOOD [BC] Stat 07/24/17 10:15 CULTURE BLOOD [BC] Stat 07/24/17 11:06 Abdomen Ltd [US] Stat
[2017-07-24] MEDS ORDERED: Sodium Chloride 0.9% 1,000 ML IV SCH ×2 (09:15→18:00)
[2017-07-24] MEDS ORDERED: Ibuprofen 600 MG Tab PO ONE (09:16)
--- NOTE | 2017-07-24 10:48 | CR ---
Chest: Portable view of the chest was obtained. Comparison: Previous chest x-ray of 12/28/16. Heart is enlarged. Lung markings mildly increased most of which appear chronic. Difficult to exclude mild superimposed pulmonary vascular congestion. Scoliosis and degenerative change is noted within the spine. Degenerative change is noted within the right shoulder. Impression: 1. Cardiomegaly. 2. Increased central lung markings most of which appear to be chronic but difficult to exclude mild superimposed pulmonary vascular congestion. Diagnostic code #3
[2017-07-24] MEDS ORDERED: cefTRIAXone 1 GM in Sodium Chloride 0.9% 100 ML IV ONE (12:08)
--- NOTE | 2017-07-24 14:21 | US ---
Limited abdominal ultrasound: Multiple real-time images of the upper right abdomen were obtained. Liver shows no focal abnormality. Slight echogenic areas are seen within the liver next to veins raising the possibility of intrahepatic biliary air. Common bile duct measures normal at 6 mm. Right kidney shows no hydronephrosis. Right kidney shows a cyst measuring 2.7 cm. Gallbladder not present compatible with previous cholecystectomy. Visualized portions of the pancreas are within normal limits. Impression: 1. Previous cholecystectomy. 2. Questionable air within the intrahepatic biliary tree. No common bile duct dilatation is seen. If this possible intrahepatic biliary air is of any clinical significance, noncontrast CT study of the liver would confirm. 3. No additional abnormality is seen on right upper quadrant abdominal ultrasound. Diagnostic code #3 I agree with preliminary report issued by [employer] ([facility] report finalized on 07/24/17, 2:45 PM Central Time)
[2017-07-24] MEDS ORDERED: Pneumococcal Polyvalent-23 Vaccine 0.5 ML SDV IM ONE (14:52)
[2017-07-24] MEDS ORDERED: FLU Vacc TS 2017-18 (65yr UP)/PF 180 MCG/0.5 ML Syringe IM ONE (15:00)
[2017-07-24] MEDS ORDERED: Morphine 2 MG/ML Syringe IVPUSH PRN (17:46)
[2017-07-24] MEDS ORDERED: Ondansetron 4 MG Tab.DIS PO PRN (17:46)
[2017-07-24] MEDS ORDERED: Acetaminophen/HYDROcodone 325-5 MG Tab PO PRN ×2 (17:46)
[2017-07-24] MEDS ORDERED: Docusate Sodium 100 MG Cap PO PRN (17:46)
[2017-07-24] MEDS ORDERED: Acetaminophen 325 MG Tab PO PRN (17:46)
[2017-07-24] MEDS ORDERED: Polyethylene Glycol 3350 Powder 17 GM Packet PO PRN (17:46)
[2017-07-24] MEDS ORDERED: Magnesium Hydroxide 400 MG/5 ML Susp 30 ML Cup PO PRN (17:46)
[2017-07-24] MEDS ORDERED: Ondansetron 4 MG/2 ML SDV IV PRN (17:46)
[2017-07-24] MEDS ORDERED: Temazepam 7.5 MG Cap PO PRN (17:46)
[2017-07-24] MEDS ORDERED: Denosumab 60 MG/1 ML Syringe SUBCUT SCH (18:00)
--- NOTE | 2017-07-24 18:17 | PCM.HP ---
H&P History of Present Illness - General Date of Service: 07/24/17 Admit Problem/Dx: Admission Diagnosis/Problem Admission Diagnosis/Problem Fever Source of Information: Patient, Other (ER physician's notes) History Limitations: Reports: No Limitations - History of Present Illness Initial Comments - Free Text/Narative: Patient is an 89 year old woman with multiple comorbidities including congestive heart failure, ischemic heart disease, Alzheimer's disease, a resident of [facility] who was transferred to the emergency room for evaluation of complaints of fever. Patient insists that she feels very well and denies any problems although she is said to be confused but she is oriented to time place and person. She was said to have spiked fever at the assisted living facility overnight and was then brought to the emergency room for further evaluation. At the emergency room, vital signs revealed a temperature of 37.2C and laboratory investigations revealed a WBC of 13.7, BUNs /creatinine of 24/1.3, lactic acid level of 2.2, AST of 201, etiology of 169, alkaline phosphatase of 207. Urinalysis revealed presence of leukocyte esterase and bacteria suspicious for urinary tract infection. She received 1 g of Rocephin and blood as well as urine samples were collected for culture. Review of patient's medical records showed that she was seen at this facility for evaluation of fever in December and was found to have urinary tract infection due to Klebsiella pneumonia sensitive to Rocephin. She will be admitted for IV antibiotic therapy. - Related Data Allergies/Adverse Reactions: Allergies Allergy/AdvReac Type Severity Reaction Status Date / Time Penicillins Allergy Cannot Verified 07/24/17 12:43 Remember Home Medications: Home Meds Ascorbic Acid [C-500] 500 mg PO DAILY 07/27/16 [History] Aspirin 81 mg PO DAILY 07/27/16 [History] B2/Vit A,C & E/Lut/Zeaxanth/Mn [Icaps] 1 each PO DAILY 07/27/16 [History] Carvedilol [Carvedilol] 6.25 mg PO BID 07/27/16 [History] Cyanocobalamin (Vitamin B-12) [Cyanocobalamin Injection] 1,000 mcg IJ ASDIRECTED 07/27/16 [History] Denosumab [Prolia] 60 mg SUBCUT ASDIRECTED 07/27/16 [History] Diltiazem HCl [Diltiazem 24Hr Cd] 120 mg PO DAILY 07/27/16 [History] Donepezil [Aricept] 5 mg PO BEDTIME 07/27/16 [History] Furosemide [Furosemide] 40 mg PO WITHLUNCH 07/27/16 [History] Furosemide [Furosemide] 80 mg PO DAILY 07/27/16 [History] Insulin Glarg,Human.Rec.Analog [LantUS Solostar] 14 units SQ BEDTIME 07/27/16 [ History] Iron Polysaccharide Complex [Poly-Iron] 150 mg PO DAILY 07/27/16 [History] Losartan [Cozaar] 50 mg PO DAILY 07/27/16 [History] Multivitamin [Daily Mirtha] 1 each PO DAILY 07/27/16 [History] Omeprazole [Omeprazole] 20 mg PO DAILY 07/27/16 [History] Travoprost [Travatan Z] 1 drop EYEBOTH BEDTIME 07/27/16 [History] atorvaSTATin [Lipitor] 20 mg PO BEDTIME 07/27/16 [History] glipiZIDE [Glipizide] 10 mg PO DAILY 07/27/16 [History] Acetaminophen 650 mg PO Q4HR PRN 07/24/17 [History] Acetaminophen [Tylenol Extra Strength] 500 mg PO Q6HR PRN 07/24/17 [History] Past Medical History HEENT History: Reports: Glaucoma, Hard of Hearing, Other (See Below) Other HEENT History: per [facility] form has glasses and hearing aides Cardiovascular History: Reports: Heart Failure, Hypertension, Other (See Below) Other Cardiovascular History: chronic ischemic heart disease Gastrointestinal History: Reports: GERD Genitourinary History: Reports: Chronic Renal Insuffiency, Urinary Incontinence , UTI, Recurrent, Other (See Below) Other Genitourinary History: overactive bladder Other OB/BYN History: hysterectomy and oophorectomy Musculoskeletal History: Reports: Osteoarthritis, Osteoporosis Neurological History: Reports: Alzheimers Disease, Other (See Below) Other Neuro History: organic brain syndrom Psychiatric History: Reports: Depression Endocrine/Metabolic History: Reports: Diabetes, Type II, Osteoporosis, Other ( See Below) Other Endocrine/Metabolic History: vit B12 deficency; anemia; hyperlipidemia Hematologic History: Reports: B12 Deficiency - Infectious Disease History Other Infectious Disease History: unknown none listed on ER or [place] report - Past Surgical History HEENT Surgical History: Reports: Cataract Surgery GI Surgical History: Reports: Cholecystectomy Female Surgical History: Reports: Hysterectomy, Oophorectomy Social & Family History - Family History Family Medical History: Unobtainable - Tobacco Use Smoking Status *Q: Never Smoker Second Hand Smoke Exposure: No - Caffeine Use Caffeine Use: Reports: None - Recreational Drug Use Recreational Drug Use: No - Living Situation & Occupation Living situation: Reports: Extended Care Facility Occupation: Retired H&P Review of Systems - Review of Systems: Review Of Systems: See Below General: Reports: Fever HEENT: Reports: No Symptoms Pulmonary: Reports: No Symptoms Cardiovascular: Reports: No Symptoms Gastrointestinal: Reports: No Symptoms Genitourinary: Reports: No Symptoms Musculoskeletal: Reports: No Symptoms Skin: Reports: No Symptoms Psychiatric: Reports: No Symptoms Neurological: Reports: No Symptoms Hematologic/Lymphatic: Reports: No Symptoms Immunologic: Reports: No Symptoms Exam - Exam Exam: See Below - Vital Signs Vital Signs: Last Vital Signs Temp 97.5 F 07/24/17 14:29 Pulse 58 L 07/24/17 14:29 Resp 16 07/24/17 14:29 BP 104/76 07/24/17 14:29 Pulse Ox 98 07/24/17 14:29 Weight: 72.575 kg - Exam General: Alert, Oriented, Cooperative HEENT: PERRLA, Hearing Intact, Mucosa Moist & [place], Nares Patent, Normal Nasal Septum, Posterior Pharynx Clear, Conjunctiva Clear, EOMI, EACs Clear, TMs Clear Neck: Supple, Trachea Midline, 2 Lungs: Clear to Auscultation, Normal Respiratory Effort Cardiovascular: Regular Rate, Regular Rhythm GI/Abdominal Exam: Normal Bowel Sounds, Soft, Non-Tender, No Organomegaly, No Distention, No Abnormal Bruit, No Mass (Female) Exam: Deferred Rectal (Female) Exam: Deferred Back Exam: Normal Inspection, Full Range of Motion, NT Extremities: Normal Inspection, Normal Range of Motion, Non-Tender, No Pedal Edema, Normal Capillary Refill Peripheral Pulses: 2+: Carotid (L), Carotid (R), Brachial (L), Brachial (R), Radial (L), Radial (R), Femoral (L), Femoral (R), Popliteal (L), Popliteal (R), Posterior Tibial (L), Posterior Tibial (R), Dorsalis Pedis (L), Dorsalis Pedis ( R) Skin: Warm, Dry, Intact Neurological: Cranial Nerves Intact, Reflexes Equal Bilateral Neuro Extensive - Mental Status: Alert, Oriented x3, Normal Mood/Affect, Normal Cognition Neuro Extensive - Motor, Sensory, Reflexes: CN II-XII Intact, Normal Gait, Normal Reflexes DTR: 2+: Bicep (L), Bicep (R), Tricep (L), Tricep (R), Patella (L), Patella (R) , Achilles (L), Achilles (R) Psychiatric: Alert, Normal Affect, Normal Mood - Patient Data Lab Results Last 24 hrs: Laboratory Results - last 24 hr 07/24/17 Range/Units 14:57 MRSA (PCR) Negative Result Diagrams: 07/24/17 10:00 07/24/17 10:06 *Q Meaningful Use (ADM) - VTE *Q VTE Criteria *Q: - Stroke *Q Stroke Criteria *Q: - AMI *Q AMI Criteria *Q: - Problem List (1) Sepsis SNOMED Code(s): 99947391 ICD Code: A41.9 - SEPSIS, UNSPECIFIED ORGANISM Status: Acute Priority: High Current Visit: Yes Onset Date: ~07/24/17 Qualifiers: Sepsis type: sepsis due to unspecified organism Qualified Code(s): A41.9 - Sepsis, unspecified organism (2) Abnormal transaminases SNOMED Code(s): 393684644 ICD Code: R74.8 - ABNORMAL LEVELS OF OTHER SERUM ENZYMES Status: Acute Priority: High Current Visit: Yes (3) Dementia SNOMED Code(s): 60476429 ICD Code: F03.90 - UNSPECIFIED DEMENTIA WITHOUT BEHAVIORAL DISTURBANCE Status: Chronic Priority: Low Current Visit: Yes Qualifiers: Dementia type: Alzheimer's disease Alzheimer's disease onset: late-onset Dementia behavioral disturbance: without behavioral disturbance Qualified Code (s): G30.1 - Alzheimer's disease with late onset; F02.80 - Dementia in other diseases classified elsewhere without behavioral disturbance; F02.80 - Dementia in other diseases classified elsewhere without behavioral disturbance; F02.80 - Dementia in other diseases classified elsewhere without behavioral disturbance (4) Elevated troponin SNOMED Code(s): 364835211 ICD Code: R74.8 - ABNORMAL LEVELS OF OTHER SERUM ENZYMES Status: Acute Priority: High Current Visit: Yes (5) Fever SNOMED Code(s): 184584868 ICD Code: R50.9 - FEVER, UNSPECIFIED Status: Acute Priority: High Current Visit: Yes Qualifiers: Encounter type: initial encounter (6) Urinary tract infection SNOMED Code(s): 74659670 ICD Code: N39.0 - URINARY TRACT INFECTION, SITE NOT SPECIFIED Status: Suspected Priority: High Current Visit: Yes Qualifiers: Urinary tract infection type: acute cystitis Hematuria presence: without hematuria Qualified Code(s): N30.00 - Acute cystitis without hematuria (7) Lactic acidosis SNOMED Code(s): 92835935 ICD Code: E87.2 - ACIDOSIS Status: Acute Priority: High Current Visit: Yes Onset Date: ~07/24/17 Problem List Initiated/Reviewed/Updated: Yes Orders Last 24hrs: Active Orders 24 hr Category Date Time Status Antiembolic Devices [RC] PER UNIT ROUTINE Care 07/24/17 17:52 Ordered Oxygen Therapy [RC] PRN Care 07/24/17 17:46 Ordered Up With Assistance [RC] ASDIRECTED Care 07/24/17 17:46 Ordered VTE/DVT Education [RC] PER UNIT ROUTINE Care 07/24/17 17:46 Ordered Vital Signs [RC] Q4H Care 07/24/17 17:46 Ordered OT Evaluation and Treatment [CONS] Routine Cons 07/24/17 17:46 Ordered PT Evaluation and Treatment [CONS] Routine Cons 07/24/17 17:46 Ordered 2 Gram Sodium Diet [DIET] Diet 07/24/17 Dinner Ordered BASIC METABOLIC PANEL,BMP [CHEM] AM Lab 07/25/17 05:11 Ordered CBC WITH AUTO DIFF [HEME] AM Lab 07/25/17 05:11 Ordered HEPATIC FUNCTION PANEL,HFP [CHEM] AM Lab 07/25/17 05:11 Ordered LACTIC ACID [CHEM] Routine Lab 07/24/17 18:00 Ordered TROPONIN I [CHEM] Q6H Lab 07/24/17 18:10 Ordered TROPONIN I [CHEM] Q6H Lab 07/25/17 00:10 Ordered Acetaminophen [Tylenol] Med 07/24/17 17:46 Ordered 650 mg PO Q4H PRN Acetaminophen/HYDROcodone [[place] 325-5 MG] Med 07/24/17 17:46 Ordered 1 tab PO Q4H PRN Acetaminophen/HYDROcodone [[place] 325-5 MG] Med 07/24/17 17:46 Ordered 2 tab PO Q4H PRN Ascorbic Acid [C-500] Med 07/25/17 09:00 Ordered 500 mg PO DAILY Aspirin Med 07/25/17 09:00 Ordered 81 mg PO DAILY B2/Vit A,C & E/Lut/Zeaxanth/Mn [Icaps] Med 07/25/17 09:00 Ordered 1 each PO DAILY Carvedilol [Coreg] Med 07/24/17 21:00 Ordered 6.25 mg PO BID Denosumab [Prolia] Med 07/24/17 18:00 Ordered 60 mg SUBCUT ASDIRECTED Diltiazem [Cardizem CD] Med 07/25/17 09:00 Ordered 120 mg PO DAILY Docusate Sodium [Colace] Med 07/24/17 17:46 Ordered 100 mg PO BID PRN Donepezil Med 07/24/17 21:00 Ordered 5 mg PO BEDTIME Enoxaparin [Lovenox] Med 07/25/17 09:00 Ordered 40 mg SUBCUT DAILY Furosemide [Lasix] Med 07/25/17 11:00 Ordered 40 mg PO WITHLUNCH Furosemide [Lasix] Med 07/25/17 09:00 Ordered 80 mg PO DAILY Insulin Glarg,Human.Rec.Analog Med 07/24/17 21:00 Ordered 14 units SQ BEDTIME Iron Polysaccharides Complex [Ferrex 150] Med 07/25/17 09:00 Ordered 150 mg PO DAILY Losartan Med 07/25/17 09:00 Ordered 50 mg PO DAILY Magnesium Hydroxide [Milk of Magnesia] Med 07/24/17 17:46 Ordered 30 ml PO Q12H PRN Morphine Med 07/24/17 17:46 Ordered 2 mg IVPUSH Q2H PRN Multivitamin Med 07/25/17 09:00 Ordered 1 each PO DAILY Omeprazole Med 07/25/17 09:00 Ordered 20 mg PO DAILY Ondansetron [Zofran ODT] Med 07/24/17 17:46 Ordered 4 mg PO Q6H PRN Ondansetron [Zofran] Med 07/24/17 17:46 Ordered 4 mg IV Q6H PRN Polyethylene Glycol 3350 [MiraLAX] Med 07/24/17 17:46 Ordered 17 gm PO DAILY PRN Sodium Chloride 0.9% @ 125 MLS/HR (1000ml) Med 07/24/17 18:00 Ordered Sodium Chloride 0.9% [Normal Saline] 1,000 ml IV ASDIRECTED Temazepam [Restoril] Med 07/24/17 17:46 Ordered 7.5 mg PO BEDTIME PRN Travoprost [Travatan Z] Med 07/24/17 21:00 Ordered 1 drop EYEBOTH BEDTIME atorvaSTATin Med 07/24/17 21:00 Ordered 20 mg PO BEDTIME cefTRIAXone [Rocephin] 1 gm Med 07/24/17 18:00 Ordered Sodium Chloride 0.9% [Normal Saline] 50 ml IV Q24H glipiZIDE [Glucotrol] Med 07/25/17 09:00 Ordered 10 mg PO DAILY Antiembolic Hose [OM.PC] Per Unit Routine Oth 07/24/17 17:47 Ordered Resuscitation Status Routine Resus Stat 07/24/17 17:46 Ordered Medication Orders Acetaminophen (Tylenol) 650 mg PO Q4H PRN PRN Reason: Pain (Mild 1-3)/fever Hydrocodone Bitart/Acetaminophen ([place] 325-5 Mg) 1 tab PO Q4H PRN PRN Reason: Pain (moderate 4-6) Hydrocodone Bitart/Acetaminophen ([place] 325-5 Mg) 2 tab PO Q4H PRN PRN Reason: Pain (moderate 4-6) Aspirin (Aspirin) 81 mg PO DAILY [facility] Carvedilol (Coreg) 6.25 mg PO BID [facility] Denosumab (Prolia) 60 mg SUBCUT ASDIRECTED [facility] Diltiazem HCl (Cardizem Cd) 120 mg PO DAILY [facility] Docusate Sodium (Colace) 100 mg PO BID PRN PRN Reason: Constipation Enoxaparin Sodium (Lovenox) 40 mg SUBCUT DAILY [facility] Furosemide (Lasix) 40 mg PO WITHLUNCH [facility] Furosemide (Lasix) 80 mg PO DAILY [facility] Glipizide (Glucotrol) 10 mg PO DAILY [facility] Sodium Chloride (Normal Saline) 1,000 mls @ 150 mls/hr IV ASDIRECTED [facility] Last Admin: 07/24/17 09:42 Dose: 150 mls/hr Ceftriaxone Sodium 1 gm/ (Sodium Chloride) 50 mls @ 100 mls/hr IV Q24H [facility] Sodium Chloride (Normal Saline) 1,000 mls @ 125 mls/hr IV ASDIRECTED [facility] Magnesium Hydroxide (Milk Of Magnesia) 30 ml PO Q12H PRN PRN Reason: Constipation Morphine Sulfate (Morphine) 2 mg IVPUSH Q2H PRN PRN Reason: Pain (severe 7-10) Stop: 07/25/17 17:49 Non-Formulary Medication (Ascorbic Acid [C-500]) 500 mg PO DAILY [facility] Non-Formulary Medication (Atorvastatin) 20 mg PO BEDTIME [facility] Non-Formulary Medication (B2/Vit A,C & E/Lut/Zeaxanth/Mn [Icaps]) 1 each PO DAILY [facility] Non-Formulary Medication (Donepezil) 5 mg PO BEDTIME [facility] Non-Formulary Medication (Insulin Glarg,Human.Rec.Analog) 14 units SQ BEDTIME [facility] Non-Formulary Medication (Losartan) 50 mg PO DAILY [facility] Non-Formulary Medication (Multivitamin) 1 each PO DAILY [facility] Non-Formulary Medication (Omeprazole) 20 mg PO DAILY [facility] Non-Formulary Medication (Travoprost [Travatan Z]) 1 drop EYEBOTH BEDTIME [facility] Ondansetron HCl (Zofran Odt) 4 mg PO Q6H PRN PRN Reason: nausea, able to take PO Ondansetron HCl (Zofran) 4 mg IV Q6H PRN PRN Reason: Nausea/Vomiting Polyethylene Glycol (Miralax) 17 gm PO DAILY PRN PRN Reason: Constipation Polysaccharide Iron Complex (Ferrex 150) 150 mg PO DAILY [facility] Temazepam (Restoril) 7.5 mg PO BEDTIME PRN PRN Reason: Sleep Assessment/Plan Comment:: Patient received 1 g of Rocephin at the emergency room and will continue every 24 hours pending results of urine culture as well as blood culture. Repeat lactic acid level after IV fluid hydration showed a return to baseline/normal of 1.3. We'll monitor troponin level as well as EKG every 6 hours and will continue home medications with aspirin, beta deandra, GALEN inhibitor, statin as family do not want any cardiology intervention at this time. We'll discontinue IV fluid hydration and will continue Lasix by mouth. Will recheck liver function tests in the morning. Elevated transaminases is possibly due to the sepsis which is possibly as a result of urinary tract infection. CODE STATUS: DNR/DNI.
--- NOTE | 2017-07-24 21:17 | PCM.SN ---
- Free Text/Narrative Note: I got a call from the lab to inform me that after 9 hours, patient's blood culture grew gram-positive cocci in pairs and chains. Urine culture was also said to be positive for gram-negative rods. We'll start IV vancomycin to be dosed by pharmacy based on weight and patient will continue IV Rocephin 1 g every 24 hours as scheduled. We'll await final results of the blood and urine culture. Patient was examined and is in stable condition.
[2017-07-24] MEDS: Insulin Detemir 100 Units/ML 3 ML Pen SUBCUT SCH (21:55)
[2017-07-24] MEDS: Latanoprost 0.005% Ophth Soln 2.5 ML Bottle EYEBOTH SCH (21:56)
[2017-07-24] MEDS: Carvedilol 6.25 MG Tab PO SCH (21:58)
[2017-07-24] MEDS: Simvastatin 20 MG Tab PO SCH (21:58)
[2017-07-24] MEDS: Donepezil 10 MG Tab PO SCH (21:59)
[2017-07-25] MEDS: Pantoprazole 40 MG Tab.CR PO SCH (06:16)
--- NOTE | 2017-07-25 08:22 | PCM.PN ---
- General Info Date of Service: 07/25/17 Admission Dx/Problem (Free Text): Admission Diagnosis/Problem Admission Diagnosis/Problem Fever Subjective Update: Patient seen and examined bedside this morning. Still denies any new problems. Was informed yesterday that blood culture grew gram-positive cocci and is unchanged and urine culture gram-negative rods. She was started on IV vancomycin and will continue Rocephin as previously ordered. Functional Status: Reports: Pain Controlled, Tolerating Diet, Ambulating, Urinating. Denies: New Symptoms - Review of Systems General: Reports: No Symptoms HEENT: Reports: No Symptoms Pulmonary: Reports: No Symptoms Cardiovascular: Reports: No Symptoms Gastrointestinal: Reports: No Symptoms Genitourinary: Reports: No Symptoms Musculoskeletal: Reports: No Symptoms Skin: Reports: No Symptoms Neurological: Reports: No Symptoms Psychiatric: Reports: No Symptoms - Patient Data Vitals - Most Recent: Last Vital Signs Temp 97.7 F 07/25/17 04:20 Pulse 72 07/25/17 04:20 Resp 20 07/25/17 04:20 BP 126/42 L 07/25/17 04:20 Pulse Ox 94 L 07/25/17 04:20 Weight - Most Recent: 72.756 kg I&O - Last 24 Hours: Intake & Output 07/24/17 07/25/17 07/25/17 22:59 06:59 14:59 Intake Total 0 550 Output Total 350 Balance 0 200 Lab Results Last 24 Hours: Laboratory Results - last 24 hr 07/24/17 07/24/17 07/24/17 Range/Units 14:57 18:32 18:32 WBC (3.98-10.04) K/mm3 RBC (3.98-5.22) M/mm3 Hgb (11.2-15.7) gm/L Hct (34.1-44.9) % MCV (79.4-94.8) fl MCH (25.6-32.2) pg MCHC (32.2-35.5) g/dl RDW Std Deviation (36.4-46.3) fL Plt Count (182-369) K/mm3 MPV (9.4-12.3) fl Neut % (Auto) (34.0-71.1) % Lymph % (Auto) (19.3-51.7) % [place] % (Auto) (4.7-12.5) % Eos % (Auto) (0.7-5.8) Baso % (Auto) (0.1-1.2) % Neut # (Auto) (1.56-6.13) K/mm3 Lymph # (Auto) (1.18-3.74) K/mm3 [place] # (Auto) (0.24-0.36) K/mm3 Eos # (Auto) (0.04-0.36) K/mm3 Baso # (Auto) (0.01-0.08) K/mm3 Sodium (136-145) mEq/L Potassium (3.5-5.1) mEq/L Chloride (98-107) mEq/L Carbon Dioxide (21-32) mEq/L Anion Gap (5-15) BUN (7-18) mg/dL Creatinine (0.55-1.02) mg/dL Est Cr Clr Drug Dosing mL/min Estimated GFR (MDRD) (>60) mL/min BUN/Creatinine Ratio (14-18) Glucose (83-115) mg/dL POC Glucose (83-110) mg/dL Lactic Acid 1.3 (0.4-2.0) mmol/L Calcium (8.5-10.1) mg/dL Total Bilirubin (0.2-1.0) mg/dL Direct Bilirubin (0.0-0.2) mg/dl Indirect Bilirubin AST (15-37) U/L ALT (14-59) U/L Alkaline Phosphatase (46-116) U/L Troponin I 0.189 H* (0.00-0.056) ng/mL Total Protein (6.4-8.2) g/dl Albumin (3.4-5.0) g/dl Globulin gm/dL Albumin/Globulin Ratio (1-2) MRSA (PCR) Negative 07/24/17 07/25/17 07/25/17 Range/Units 21:55 01:00 06:35 WBC 10.42 H (3.98-10.04) K/mm3 RBC 3.50 L (3.98-5.22) M/mm3 Hgb 10.6 L (11.2-15.7) gm/L Hct 33.6 L (34.1-44.9) % MCV 96.0 H (79.4-94.8) fl MCH 30.3 (25.6-32.2) pg MCHC 31.5 L (32.2-35.5) g/dl RDW Std Deviation 48.5 H (36.4-46.3) fL Plt Count 167 L (182-369) K/mm3 MPV 11.1 (9.4-12.3) fl Neut % (Auto) 80.5 H (34.0-71.1) % Lymph % (Auto) 10.8 L (19.3-51.7) % [place] % (Auto) 6.7 (4.7-12.5) % Eos % (Auto) 1.5 (0.7-5.8) Baso % (Auto) 0.2 (0.1-1.2) % Neut # (Auto) 8.38 H (1.56-6.13) K/mm3 Lymph # (Auto) 1.13 L (1.18-3.74) K/mm3 [place] # (Auto) 0.70 H (0.24-0.36) K/mm3 Eos # (Auto) 0.16 (0.04-0.36) K/mm3 Baso # (Auto) 0.02 (0.01-0.08) K/mm3 Sodium (136-145) mEq/L Potassium (3.5-5.1) mEq/L Chloride (98-107) mEq/L Carbon Dioxide (21-32) mEq/L Anion Gap (5-15) BUN (7-18) mg/dL Creatinine (0.55-1.02) mg/dL Est Cr Clr Drug Dosing mL/min Estimated GFR (MDRD) (>60) mL/min BUN/Creatinine Ratio (14-18) Glucose (83-115) mg/dL POC Glucose 113 H (83-110) mg/dL Lactic Acid (0.4-2.0) mmol/L Calcium (8.5-10.1) mg/dL Total Bilirubin (0.2-1.0) mg/dL Direct Bilirubin (0.0-0.2) mg/dl Indirect Bilirubin AST (15-37) U/L ALT (14-59) U/L Alkaline Phosphatase (46-116) U/L Troponin I 0.112 H* (0.00-0.056) ng/mL Total Protein (6.4-8.2) g/dl Albumin (3.4-5.0) g/dl Globulin gm/dL Albumin/Globulin Ratio (1-2) MRSA (PCR) 07/25/17 Range/Units 06:35 WBC (3.98-10.04) K/mm3 RBC (3.98-5.22) M/mm3 Hgb (11.2-15.7) gm/L Hct (34.1-44.9) % MCV (79.4-94.8) fl MCH (25.6-32.2) pg MCHC (32.2-35.5) g/dl RDW Std Deviation (36.4-46.3) fL Plt Count (182-369) K/mm3 MPV (9.4-12.3) fl Neut % (Auto) (34.0-71.1) % Lymph % (Auto) (19.3-51.7) % [place] % (Auto) (4.7-12.5) % Eos % (Auto) (0.7-5.8) Baso % (Auto) (0.1-1.2) % Neut # (Auto) (1.56-6.13) K/mm3 Lymph # (Auto) (1.18-3.74) K/mm3 [place] # (Auto) (0.24-0.36) K/mm3 Eos # (Auto) (0.04-0.36) K/mm3 Baso # (Auto) (0.01-0.08) K/mm3 Sodium 143 (136-145) mEq/L Potassium 3.9 (3.5-5.1) mEq/L Chloride 108 H (98-107) mEq/L Carbon Dioxide 25 (21-32) mEq/L Anion Gap 13.9 (5-15) BUN 23 H (7-18) mg/dL Creatinine 1.0 (0.55-1.02) mg/dL Est Cr Clr Drug Dosing 27.39 mL/min Estimated GFR (MDRD) 52 (>60) mL/min BUN/Creatinine Ratio 23.0 H (14-18) Glucose 78 L (83-115) mg/dL POC Glucose (83-110) mg/dL Lactic Acid (0.4-2.0) mmol/L Calcium 8.5 (8.5-10.1) mg/dL Total Bilirubin 0.4 (0.2-1.0) mg/dL Direct Bilirubin 0.10 (0.0-0.2) mg/dl Indirect Bilirubin 0.30 AST 119 H (15-37) U/L ALT 157 H (14-59) U/L Alkaline Phosphatase 168 H (46-116) U/L Troponin I (0.00-0.056) ng/mL Total Protein 6.3 L (6.4-8.2) g/dl Albumin 2.5 L (3.4-5.0) g/dl Globulin 3.8 gm/dL Albumin/Globulin Ratio 0.7 L (1-2) MRSA (PCR) Med Orders - Current: Current Medications Acetaminophen (Tylenol) 650 mg PO Q4H PRN PRN Reason: Pain (Mild 1-3)/fever Hydrocodone Bitart/Acetaminophen ([place] 325-5 Mg) 1 tab PO Q4H PRN PRN Reason: Pain (moderate 4-6) Hydrocodone Bitart/Acetaminophen ([place] 325-5 Mg) 2 tab PO Q4H PRN PRN Reason: Pain (moderate 4-6) Ascorbic Acid (Vitamin C) 500 mg PO DAILY [facility] Aspirin (Aspirin) 81 mg PO DAILY [facility] Carvedilol (Coreg) 6.25 mg PO BID [facility] Last Admin: 07/24/17 21:58 Dose: 6.25 mg Denosumab (Prolia) 60 mg SUBCUT ASDIRECTED [facility] Diltiazem HCl (Cardizem Cd) 120 mg PO DAILY [facility] Docusate Sodium (Colace) 100 mg PO BID PRN PRN Reason: Constipation Donepezil HCl (Aricept) 5 mg PO BEDTIME [facility] Last Admin: 07/24/17 21:59 Dose: 5 mg Enoxaparin Sodium (Lovenox) 30 mg SUBCUT DAILY [facility] Furosemide (Lasix) 40 mg PO WITHLUNCH [facility] Furosemide (Lasix) 80 mg PO DAILY [facility] Glipizide (Glucotrol) 10 mg PO DAILY [facility] Ceftriaxone Sodium 1 gm/ (Sodium Chloride) 50 mls @ 100 mls/hr IV Q24H [facility] Vancomycin HCl 1 gm/ Sodium (Chloride) 250 mls @ 250 mls/hr IV Q24H [facility] Last Admin: 07/24/17 22:00 Dose: 250 mls/hr Insulin Detemir (Levemir) 7 unit SUBCUT BID [facility] Last Admin: 07/24/17 21:55 Dose: 7 units Latanoprost (Xalatan 0.005% Ophth Soln) 0 ml EYEBOTH BEDTIME [facility] Last Admin: 07/24/17 21:56 Dose: 1 drop Losartan Potassium (Cozaar) 50 mg PO DAILY [facility] Magnesium Hydroxide (Milk Of Magnesia) 30 ml PO Q12H PRN PRN Reason: Constipation Morphine Sulfate (Morphine) 2 mg IVPUSH Q2H PRN PRN Reason: Pain (severe 7-10) Stop: 07/25/17 17:49 Multivitamins (Thera) 1 each PO DAILY [facility] Ondansetron HCl (Zofran Odt) 4 mg PO Q6H PRN PRN Reason: nausea, able to take PO Ondansetron HCl (Zofran) 4 mg IV Q6H PRN PRN Reason: Nausea/Vomiting Pantoprazole Sodium (Protonix) 40 mg PO DAILY@0700 [facility] Last Admin: 07/25/17 06:16 Dose: 40 mg Polyethylene Glycol (Miralax) 17 gm PO DAILY PRN PRN Reason: Constipation Polysaccharide Iron Complex (Ferrex 150) 150 mg PO DAILY [facility] Simvastatin (Zocor) 20 mg PO BEDTIME [facility] Last Admin: 07/24/17 21:58 Dose: 20 mg Temazepam (Restoril) 7.5 mg PO BEDTIME PRN PRN Reason: Sleep Vancomycin HCl (Pharmacy To Dose - Vancomycin) 1 dose .XX ASDIRECTED [facility] Vit A/Vit C/Vit E/Selen/Cu/Zn/Lutei (Icaps Mv) 1 tab PO DAILY [facility] Discontinued Medications Sodium Chloride (Normal Saline) 1,000 mls @ 150 mls/hr IV ASDIRECTED [facility] Last Admin: 07/24/17 09:42 Dose: 150 mls/hr Ceftriaxone Sodium 1 gm/ (Sodium Chloride) 100 mls @ 200 mls/hr IV ONETIME ONE Stop: 07/24/17 12:37 Last Admin: 07/24/17 12:45 Dose: 200 mls/hr Sodium Chloride (Normal Saline) 1,000 mls @ 125 mls/hr IV ASDIRECTED [facility] Ibuprofen (Motrin) 600 mg PO ONETIME ONE Stop: 07/24/17 09:17 Last Admin: 07/24/17 09:41 Dose: 600 mg Influenza Virus Vaccine (Pharmacy To Dose - Influenza Vaccine) 1 each IM ONETIME ONE Stop: 07/24/17 14:53 Influenza Virus Vaccine (Fluzone High-Dose 2016-) 180 mcg IM .ONCE ONE Stop: 07/24/17 15:01 Pneumococcal Polyvalent Vaccine (Pneumovax 23) 0.5 ml IM .ONCE ONE Stop: 07/24/17 14:53 - Exam General: Alert, Oriented, Cooperative, No Acute Distress HEENT: Pupils Equal, Pupils Reactive, EOMI, Mucous Membr. Moist/[place] Neck: Supple Lungs: Clear to Auscultation, Normal Respiratory Effort Cardiovascular: Regular Rate, Regular Rhythm GI/Abdominal Exam: Normal Bowel Sounds, Soft, Non-Tender, No Organomegaly, No Distention, No Abnormal Bruit, No Mass, Pelvis Stable (Female) Exam: Deferred Back Exam: Normal Inspection Extremities: Normal Inspection, Normal Range of Motion, Non-Tender, No Pedal Edema, Normal Capillary Refill Peripheral Pulses: 2+: Carotid (L), Carotid (R), Brachial (L), Brachial (R), Radial (L), Radial (R), Femoral (L), Femoral (R), Popliteal (L), Popliteal (R), Posterior Tibial (L), Posterior Tibial (R), Dorsalis Pedis (L), Dorsalis Pedis ( R) Skin: Warm, Dry, Intact Neurological: No New Focal Deficit Psy/Mental Status: Alert, Normal Affect, Normal Mood - Problem List & Annotations (1) Sepsis SNOMED Code(s): 59516889 Code(s): A41.9 - SEPSIS, UNSPECIFIED ORGANISM Status: Acute Priority: High Current Visit: Yes Onset Date: ~07/24/17 Qualifiers: Sepsis type: sepsis due to unspecified organism Qualified Code(s): A41.9 - Sepsis, unspecified organism (2) Abnormal transaminases SNOMED Code(s): 426094756 Code(s): R74.8 - ABNORMAL LEVELS OF OTHER SERUM ENZYMES Status: Acute Priority: High Current Visit: Yes (3) Dementia SNOMED Code(s): 84407785 Code(s): F03.90 - UNSPECIFIED DEMENTIA WITHOUT BEHAVIORAL DISTURBANCE Status: Chronic Priority: Low Current Visit: Yes Qualifiers: Dementia type: Alzheimer's disease Alzheimer's disease onset: late-onset Dementia behavioral disturbance: without behavioral disturbance Qualified Code (s): G30.1 - Alzheimer's disease with late onset; F02.80 - Dementia in other diseases classified elsewhere without behavioral disturbance; F02.80 - Dementia in other diseases classified elsewhere without behavioral disturbance; F02.80 - Dementia in other diseases classified elsewhere without behavioral disturbance (4) Elevated troponin SNOMED Code(s): 264711089 Code(s): R74.8 - ABNORMAL LEVELS OF OTHER SERUM ENZYMES Status: Acute Priority: High Current Visit: Yes (5) Fever SNOMED Code(s): 542834060 Code(s): R50.9 - FEVER, UNSPECIFIED Status: Acute Priority: High Current Visit: Yes Qualifiers: Encounter type: initial encounter (6) Urinary tract infection SNOMED Code(s): 20147560 Code(s): N39.0 - URINARY TRACT INFECTION, SITE NOT SPECIFIED Status: Suspected Priority: High Current Visit: Yes Qualifiers: Urinary tract infection type: acute cystitis Hematuria presence: without hematuria Qualified Code(s): N30.00 - Acute cystitis without hematuria (7) Lactic acidosis SNOMED Code(s): 05978812 Code(s): E87.2 - ACIDOSIS Status: Acute Priority: High Current Visit: Yes Onset Date: ~07/24/17 - Problem List Review Problem List Initiated/Reviewed/Updated: Yes - My Orders Last 24 Hours: My Active Orders 07/24/17 17:46 Oxygen Therapy [RC] PRN Up With Assistance [RC] ASDIRECTED VTE/DVT Education [RC] PER UNIT ROUTINE Vital Signs [RC] Q4HR OT Evaluation and Treatment [CONS] Routine PT Evaluation and Treatment [CONS] Routine Acetaminophen [Tylenol] 650 mg PO Q4H PRN Acetaminophen/HYDROcodone [[place] 325-5 MG] 1 tab PO Q4H PRN Acetaminophen/HYDROcodone [[place] 325-5 MG] 2 tab PO Q4H PRN Docusate Sodium [Colace] 100 mg PO BID PRN Magnesium Hydroxide [Milk of Magnesia] 30 ml PO Q12H PRN Morphine 2 mg IVPUSH Q2H PRN Ondansetron [Zofran ODT] 4 mg PO Q6H PRN Ondansetron [Zofran] 4 mg IV Q6H PRN Polyethylene Glycol 3350 [MiraLAX] 17 gm PO DAILY PRN Temazepam [Restoril] 7.5 mg PO BEDTIME PRN Resuscitation Status Routine 07/24/17 17:47 Antiembolic Hose [OM.PC] Per Unit Routine 07/24/17 17:52 Antiembolic Devices [RC] PER UNIT ROUTINE 07/24/17 18:00 Denosumab [Prolia] 60 mg SUBCUT ASDIRECTED 07/24/17 21:00 Carvedilol [Coreg] 6.25 mg PO BID Donepezil [Aricept] 5 mg PO BEDTIME Insulin Detemir [Levemir] 7 unit SUBCUT BID Latanoprost [Xalatan 0.005% Ophth Soln] 0 ml EYEBOTH BEDTIME Simvastatin [Zocor] 20 mg PO BEDTIME 07/24/17 21:15 Vancomycin Pharmacy to Dose [Pharmacy to Dose - Vancomycin] 1 dose .XX ASDIRECTED 07/24/17 22:00 Vancomycin [Vancocin] 1 gm Sodium Chloride 0.9% [Normal Saline] 250 ml IV Q24H 07/24/17 Dinner 2 Gram Sodium Diet [DIET] 07/25/17 07:00 Pantoprazole [ProTONIX] 40 mg PO DAILY@0700 07/25/17 07:36 Blood Glucose Check, Bedside [RC] 07/25/17 09:00 Ascorbic Acid [Vitamin C] 500 mg PO DAILY Aspirin 81 mg PO DAILY Diltiazem [Cardizem CD] 120 mg PO DAILY Enoxaparin [Lovenox] 30 mg SUBCUT DAILY Furosemide [Lasix] 80 mg PO DAILY Iron Polysaccharides Complex [Ferrex 150] 150 mg PO DAILY Losartan [Cozaar] 50 mg PO DAILY Multivitamins,Therapeutic [Thera] 1 each PO DAILY Multivitamins/Min/FA/Lut/Zeax [ICaps MV] 1 tab PO DAILY glipiZIDE [Glucotrol] 10 mg PO DAILY 07/25/17 11:00 Furosemide [Lasix] 40 mg PO WITHLUNCH 07/25/17 12:00 cefTRIAXone [Rocephin] 1 gm Sodium Chloride 0.9% [Normal Saline] 50 ml IV Q24H 07/27/17 21:30 VANCOMYCIN TROUGH [CHEM] Timed - Assessment Assessment:: 1. Sepsis due to gram positive cocci and chains. 2. Urinary tract infection due to gram-negative rods. 3. Alzheimer's dementia. - Plan Plan:: 1. IV vancomycin to be dosed by pharmacy. 2. IV Rocephin 1 g every 24 hours. 3. We'll discontinue IV fluid as patient is tolerating regular diet. 4. Physical therapy and ADDITIONAL therapy evaluation and treatment. 5. Discharge planning. CODE STATUS: DNR/DNI.
[2017-07-25] MEDS: Aspirin 81 MG Tab.Chew PO SCH (08:53)
[2017-07-25] MEDS: Multivitamins,Therapeutic Tab PO SCH (08:53)
[2017-07-25] MEDS: Ascorbic Acid 500 MG Tab PO SCH (08:54)
[2017-07-25] MEDS: Losartan 25 MG Tab PO SCH (08:54)
[2017-07-25] MEDS: Carvedilol 6.25 MG Tab PO SCH ×2 (08:54→21:26)
[2017-07-25] MEDS: Multivitamins with Minerals/Folic Acid/Lutein/Zeaxanth Tab PO SCH (08:54)
[2017-07-25] MEDS: Furosemide 80 MG Tab PO SCH (08:54)
[2017-07-25] MEDS: Iron Polysaccharides Complex 150 MG Cap PO SCH (08:54)
[2017-07-25] MEDS: Enoxaparin 30 MG/0.3 ML Syringe SUBCUT SCH (08:55)
[2017-07-25] MEDS: Diltiazem 120 MG Cap.CD PO SCH (08:55)
[2017-07-25] MEDS: Insulin Detemir 100 Units/ML 3 ML Pen SUBCUT SCH ×2 (08:56→21:27)
[2017-07-25] MEDS: cefTRIAXone 1 GM in Sodium Chloride 0.9% 100 ML IV SCH (11:19)
[2017-07-25] MEDS: Furosemide 40 MG Tab PO SCH (11:20)
[2017-07-25] MEDS: Latanoprost 0.005% Ophth Soln 2.5 ML Bottle EYEBOTH SCH (21:26)
[2017-07-25] MEDS: Simvastatin 20 MG Tab PO SCH (21:26)
[2017-07-25] MEDS: Donepezil 10 MG Tab PO SCH (21:27)
[2017-07-26] MEDS: Pantoprazole 40 MG Tab.CR PO SCH (06:23)
[2017-07-26] MEDS: Ascorbic Acid 500 MG Tab PO SCH (09:40)
[2017-07-26] MEDS: Multivitamins,Therapeutic Tab PO SCH (09:40)
[2017-07-26] MEDS: Enoxaparin 30 MG/0.3 ML Syringe SUBCUT SCH (09:40)
[2017-07-26] MEDS: Multivitamins with Minerals/Folic Acid/Lutein/Zeaxanth Tab PO SCH (09:41)
[2017-07-26] MEDS: Furosemide 80 MG Tab PO SCH (09:41)
[2017-07-26] MEDS: Furosemide 40 MG Tab PO SCH ×2 (09:41→10:05)
[2017-07-26] MEDS: Losartan 25 MG Tab PO SCH (09:41)
[2017-07-26] MEDS: Diltiazem 120 MG Cap.CD PO SCH (09:41)
[2017-07-26] MEDS: Carvedilol 6.25 MG Tab PO SCH ×2 (09:44→21:13)
[2017-07-26] MEDS: Aspirin 81 MG Tab.Chew PO SCH (09:44)
[2017-07-26] MEDS: Iron Polysaccharides Complex 150 MG Cap PO SCH (09:44)
[2017-07-26] MEDS: Insulin Detemir 100 Units/ML 3 ML Pen SUBCUT SCH ×2 (09:45→21:20)
--- NOTE | 2017-07-26 09:57 | PCM.PN ---
- General Info Date of Service: 07/26/17 Admission Dx/Problem (Free Text): Admission Diagnosis/Problem Admission Diagnosis/Problem Fever Subjective Update: Patient seen and examined bedside this morning with the nurse. She denies any new problems and remains stable. Microbiology results of the blood culture revealed presence of Streptococcus bovis which grew after 9 hours of isolation. Urine culture revealed presence of Escherichia coli. Functional Status: Reports: Pain Controlled, Tolerating Diet, Ambulating, Urinating. Denies: New Symptoms - Review of Systems General: Reports: No Symptoms HEENT: Reports: No Symptoms Pulmonary: Reports: No Symptoms Cardiovascular: Reports: No Symptoms Gastrointestinal: Reports: No Symptoms Genitourinary: Reports: No Symptoms Musculoskeletal: Reports: No Symptoms Skin: Reports: No Symptoms Neurological: Reports: No Symptoms Psychiatric: Reports: No Symptoms - Patient Data Vitals - Most Recent: Last Vital Signs Temp 97.5 F 07/25/17 16:21 Pulse 60 07/26/17 09:41 Resp 16 07/25/17 16:21 BP 119/45 L 07/26/17 09:41 Pulse Ox 97 07/25/17 16:21 Weight - Most Recent: 71.94 kg I&O - Last 24 Hours: Intake & Output 07/25/17 07/26/17 07/26/17 22:59 06:59 14:59 Intake Total 1060 350 Output Total 900 350 Balance 160 0 Lab Results Last 24 Hours: Laboratory Results - last 24 hr 07/25/17 07/26/17 Range/Units 21:25 09:28 POC Glucose 119 H 118 H (83-110) mg/dL Med Orders - Current: Current Medications Acetaminophen (Tylenol) 650 mg PO Q4H PRN PRN Reason: Pain (Mild 1-3)/fever Hydrocodone Bitart/Acetaminophen ([place] 325-5 Mg) 1 tab PO Q4H PRN PRN Reason: Pain (moderate 4-6) Hydrocodone Bitart/Acetaminophen ([place] 325-5 Mg) 2 tab PO Q4H PRN PRN Reason: Pain (moderate 4-6) Ascorbic Acid (Vitamin C) 500 mg PO DAILY [facility] Last Admin: 07/26/17 09:40 Dose: 500 mg Aspirin (Aspirin) 81 mg PO DAILY [facility] Last Admin: 07/26/17 09:44 Dose: 81 mg Carvedilol (Coreg) 6.25 mg PO BID [facility] Last Admin: 07/26/17 09:44 Dose: 6.25 mg Denosumab (Prolia) 60 mg SUBCUT ASDIRECTED [facility] Diltiazem HCl (Cardizem Cd) 120 mg PO DAILY [facility] Last Admin: 07/26/17 09:41 Dose: 120 mg Docusate Sodium (Colace) 100 mg PO BID PRN PRN Reason: Constipation Donepezil HCl (Aricept) 5 mg PO BEDTIME [facility] Last Admin: 07/25/17 21:27 Dose: 5 mg Enoxaparin Sodium (Lovenox) 30 mg SUBCUT DAILY [facility] Last Admin: 07/26/17 09:40 Dose: 30 mg Furosemide (Lasix) 40 mg PO WITHLUNCH [facility] Last Admin: 07/26/17 09:41 Dose: 40 mg Furosemide (Lasix) 80 mg PO DAILY [facility] Last Admin: 07/26/17 09:41 Dose: 80 mg Glipizide (Glucotrol) 10 mg PO DAILY [facility] Last Admin: 07/26/17 09:40 Dose: 10 mg Ceftriaxone Sodium 1 gm/ (Sodium Chloride) 100 mls @ 200 mls/hr IV Q24H [facility] Last Admin: 07/25/17 11:19 Dose: 200 mls/hr Vancomycin HCl 1 gm/ Sodium (Chloride) 250 mls @ 250 mls/hr IV Q24H [facility] Last Admin: 07/25/17 21:27 Dose: 250 mls/hr Insulin Detemir (Levemir) 7 unit SUBCUT BID [facility] Last Admin: 07/26/17 09:45 Dose: 7 units Latanoprost (Xalatan 0.005% [facility] Soln) 0 ml EYEBOTH BEDTIME [facility] Last Admin: 07/25/17 21:26 Dose: 1 drop Losartan Potassium (Cozaar) 50 mg PO DAILY [facility] Last Admin: 07/26/17 09:41 Dose: 50 mg Magnesium Hydroxide (Milk Of Magnesia) 30 ml PO Q12H PRN PRN Reason: Constipation Multivitamins (Thera) 1 each PO DAILY [facility] Last Admin: 07/26/17 09:40 Dose: 1 each Ondansetron HCl (Zofran Odt) 4 mg PO Q6H PRN PRN Reason: nausea, able to take PO Ondansetron HCl (Zofran) 4 mg IV Q6H PRN PRN Reason: Nausea/Vomiting Pantoprazole Sodium (Protonix) 40 mg PO DAILY@0700 [facility] Last Admin: 07/26/17 06:23 Dose: 40 mg Polyethylene Glycol (Miralax) 17 gm PO DAILY PRN PRN Reason: Constipation Polysaccharide Iron Complex (Ferrex 150) 150 mg PO DAILY [facility] Last Admin: 07/26/17 09:44 Dose: 150 mg Simvastatin (Zocor) 20 mg PO BEDTIME [facility] Last Admin: 07/25/17 21:26 Dose: 20 mg Temazepam (Restoril) 7.5 mg PO BEDTIME PRN PRN Reason: Sleep Vancomycin HCl (Pharmacy To Dose - Vancomycin) 1 dose .XX ASDIRECTED PRN PRN Reason: RX to Dose Vit A/Vit C/Vit E/Selen/Cu/Zn/Lutei (Icaps Mv) 1 tab PO DAILY [facility] Last Admin: 07/26/17 09:41 Dose: 1 tab Discontinued Medications Sodium Chloride (Normal Saline) 1,000 mls @ 150 mls/hr IV ASDIRECTED [facility] Last Admin: 07/24/17 09:42 Dose: 150 mls/hr Ceftriaxone Sodium 1 gm/ (Sodium Chloride) 100 mls @ 200 mls/hr IV ONETIME ONE Stop: 07/24/17 12:37 Last Admin: 07/24/17 12:45 Dose: 200 mls/hr Sodium Chloride (Normal Saline) 1,000 mls @ 125 mls/hr IV ASDIRECTED [facility] Ibuprofen (Motrin) 600 mg PO ONETIME ONE Stop: 07/24/17 09:17 Last Admin: 07/24/17 09:41 Dose: 600 mg Influenza Virus Vaccine (Pharmacy To Dose - Influenza Vaccine) 1 each IM ONETIME ONE Stop: 07/24/17 14:53 Influenza Virus Vaccine (Fluzone High-Dose 2017-18) 180 mcg IM .ONCE ONE Stop: 07/24/17 15:01 Morphine Sulfate (Morphine) 2 mg IVPUSH Q2H PRN PRN Reason: Pain (severe 7-10) Stop: 07/25/17 17:49 Pneumococcal Polyvalent Vaccine (Pneumovax 23) 0.5 ml IM .ONCE ONE Stop: 07/24/17 14:53 - Exam General: Alert, Oriented, Cooperative, No Acute Distress HEENT: Pupils Equal, Pupils Reactive, EOMI, Mucous Membr. Moist/[place] Neck: Supple Lungs: Clear to Auscultation, Normal Respiratory Effort Cardiovascular: Regular Rate, Regular Rhythm GI/Abdominal Exam: Normal Bowel Sounds, Soft, Non-Tender, No Organomegaly, No Distention, No Abnormal Bruit, No Mass, Pelvis Stable (Female) Exam: Deferred Back Exam: Normal Inspection, Full Range of Motion Extremities: Normal Inspection, Normal Range of Motion, Non-Tender, No Pedal Edema, Normal Capillary Refill Peripheral Pulses: 2+: Carotid (L), Carotid (R), Brachial (L), Brachial (R), Radial (L), Radial (R), Femoral (L), Femoral (R), Popliteal (L), Popliteal (R), Posterior Tibial (L), Posterior Tibial (R), Dorsalis Pedis (L), Dorsalis Pedis ( R) Skin: Warm, Dry, Intact Neurological: No New Focal Deficit Psy/Mental Status: Alert, Normal Affect, Normal Mood - Problem List & Annotations (1) Sepsis SNOMED Code(s): 77254694 Code(s): A41.9 - SEPSIS, UNSPECIFIED ORGANISM Status: Acute Priority: High Current Visit: Yes Onset Date: ~07/24/17 Qualifiers: Sepsis type: Streptococcus, other Qualified Code(s): A40.8 - Other streptococcal sepsis Annotation/Comment:: Streptococcus bovis septicemia (2) Infection due to Streptococcus bovis SNOMED Code(s): 81902160 Code(s): A49.1 - STREPTOCOCCAL INFECTION, UNSPECIFIED SITE Status: Acute Priority: High Current Visit: Yes (3) Escherichia coli urinary tract infection SNOMED Code(s): 273576645 Code(s): N39.0 - URINARY TRACT INFECTION, SITE NOT SPECIFIED; B96.20 - UNSP ESCHERICHIA COLI THE CAUSE OF DISEASES CLASSD ELSWH Status: Acute Priority: High Current Visit: Yes (4) Abnormal transaminases SNOMED Code(s): 457675508 Code(s): R74.8 - ABNORMAL LEVELS OF OTHER SERUM ENZYMES Status: Acute Priority: High Current Visit: Yes (5) Dementia SNOMED Code(s): 37520494 Code(s): F03.90 - UNSPECIFIED DEMENTIA WITHOUT BEHAVIORAL DISTURBANCE Status: Chronic Priority: Low Current Visit: Yes Qualifiers: Dementia type: Alzheimer's disease Alzheimer's disease onset: late-onset Dementia behavioral disturbance: without behavioral disturbance Qualified Code (s): G30.1 - Alzheimer's disease with late onset; F02.80 - Dementia in other diseases classified elsewhere without behavioral disturbance; F02.80 - Dementia in other diseases classified elsewhere without behavioral disturbance; F02.80 - Dementia in other diseases classified elsewhere without behavioral disturbance (6) Elevated troponin SNOMED Code(s): 295284124 Code(s): R74.8 - ABNORMAL LEVELS OF OTHER SERUM ENZYMES Status: Acute Priority: High Current Visit: Yes (7) Fever SNOMED Code(s): 829927203 Code(s): R50.9 - FEVER, UNSPECIFIED Status: Acute Priority: High Current Visit: Yes Qualifiers: Encounter type: initial encounter (8) Lactic acidosis SNOMED Code(s): 79473870 Code(s): E87.2 - ACIDOSIS Status: Acute Priority: High Current Visit: Yes Onset Date: ~07/24/17 - Problem List Review Problem List Initiated/Reviewed/Updated: Yes - My Orders Last 24 Hours: My Active Orders 07/25/17 09:00 Ascorbic Acid [Vitamin C] 500 mg PO DAILY Aspirin 81 mg PO DAILY Diltiazem [Cardizem CD] 120 mg PO DAILY Enoxaparin [Lovenox] 30 mg SUBCUT DAILY Furosemide [Lasix] 80 mg PO DAILY Iron Polysaccharides Complex [Ferrex 150] 150 mg PO DAILY Losartan [Cozaar] 50 mg PO DAILY Multivitamins,Therapeutic [Thera] 1 each PO DAILY Multivitamins/Min/FA/Lut/Zeax [ICaps MV] 1 tab PO DAILY glipiZIDE [Glucotrol] 10 mg PO DAILY 07/25/17 11:00 Furosemide [Lasix] 40 mg PO WITHLUNCH 07/25/17 12:00 cefTRIAXone [Rocephin] 1 gm Sodium Chloride 0.9% [Normal Saline] 100 ml IV Q24H 07/27/17 21:30 VANCOMYCIN TROUGH [CHEM] Timed - Assessment Assessment:: 1. Sepsis due to Streptococcus bovis. 2. Urinary tract infection due to Escherichia coli. 3. Alzheimer's dementia. - Plan Plan:: 1. Will continue IV vancomycin to be dosed by pharmacy as patient has penicillin allergy and cannot be placed on penicillin. 2. Continue IV Rocephin 1 g every 24 hours as Escherichia coli is susceptible to this medication. 3. Will request complete echocardiogram to evaluate for presence of bacterial endocarditis. 4. General surgery consult for possible colonoscopy as a result of presence of Streptococcus bovis infection. I discussed with Dr. Veloz and he promises to see the patient and also advised stool analysis for fecal WBC as well as ova and parasite. CODE STATUS: DNR/DNI.
[2017-07-26] MEDS: cefTRIAXone 1 GM in Sodium Chloride 0.9% 100 ML IV SCH (11:03)
[2017-07-26] MEDS: Donepezil 10 MG Tab PO SCH (21:16)
[2017-07-26] MEDS: Simvastatin 20 MG Tab PO SCH (21:18)
[2017-07-26] MEDS: Latanoprost 0.005% Ophth Soln 2.5 ML Bottle EYEBOTH SCH (21:20)
[2017-07-27] MEDS: Pantoprazole 40 MG Tab.CR PO SCH (06:58)
[2017-07-27] MEDS: Insulin Detemir 100 Units/ML 3 ML Pen SUBCUT SCH ×2 (08:46→21:59)
[2017-07-27] MEDS: Carvedilol 6.25 MG Tab PO SCH ×2 (08:47→21:11)
[2017-07-27] MEDS: Ascorbic Acid 500 MG Tab PO SCH (08:47)
[2017-07-27] MEDS: Diltiazem 120 MG Cap.CD PO SCH (08:47)
[2017-07-27] MEDS: Losartan 25 MG Tab PO SCH (08:47)
[2017-07-27] MEDS: Multivitamins,Therapeutic Tab PO SCH (08:47)
[2017-07-27] MEDS: Multivitamins with Minerals/Folic Acid/Lutein/Zeaxanth Tab PO SCH (08:47)
[2017-07-27] MEDS: Aspirin 81 MG Tab.Chew PO SCH (08:48)
[2017-07-27] MEDS: Iron Polysaccharides Complex 150 MG Cap PO SCH (08:48)
[2017-07-27] MEDS: Enoxaparin 30 MG/0.3 ML Syringe SUBCUT SCH (08:48)
[2017-07-27] MEDS: Furosemide 80 MG Tab PO SCH (08:48)
--- NOTE | 2017-07-27 09:13 | PCM.CONS ---
H&P History of Present Illness - General Date of Service: 07/27/17 Admit Problem/Dx: Admission Diagnosis/Problem Admission Diagnosis/Problem Fever Source of Information: Patient, Provider - History of Present Illness Initial Comments - Free Text/Narative: 89-year-old female who is DNI and DNR, was admitted with a fever of obscure origin. She was ivan-cultured and one blood culture grew out strep bovis. Clinically the patient has no complaints. She has no chest pain, cough, or abdominal pain. She's had no diarrhea. She denied anorexia, nausea, and vomiting. Her bowel movements are regular at home. She's not seen any bleeding per rectum. She has no pain with defecation. She had a colonoscopy over 10 years ago and to the best of her recollection this examination was normal. As far she can recall she's not had an upper endoscopy. She had an open cholecystectomy many decades ago. Her temperature has been stable since admission. Her white count has been normal. Given the normal enteric etiology for this organism I was asked to see her for possible endoscopy. - Related Data Allergies/Adverse Reactions: Allergies Allergy/AdvReac Type Severity Reaction Status Date / Time Penicillins Allergy Cannot Verified 07/24/17 12:43 Remember Home Medications: Home Meds Ascorbic Acid [C-500] 500 mg PO DAILY 07/27/16 [History] Aspirin 81 mg PO DAILY 07/27/16 [History] B2/Vit A,C & E/Lut/Zeaxanth/Mn [Icaps] 1 each PO DAILY 07/27/16 [History] Carvedilol [Carvedilol] 6.25 mg PO BID 07/27/16 [History] Cyanocobalamin (Vitamin B-12) [Cyanocobalamin Injection] 1,000 mcg IJ ASDIRECTED 07/27/16 [History] Denosumab [Prolia] 60 mg SUBCUT ASDIRECTED 07/27/16 [History] Diltiazem HCl [Diltiazem 24Hr Cd] 120 mg PO DAILY 07/27/16 [History] Donepezil [Aricept] 5 mg PO BEDTIME 07/27/16 [History] Furosemide [Furosemide] 40 mg PO WITHLUNCH 07/27/16 [History] Furosemide [Furosemide] 80 mg PO DAILY 07/27/16 [History] Insulin Glarg,Human.Rec.Analog [LantUS Solostar] 14 units SQ BEDTIME 07/27/16 [ History] Iron Polysaccharide Complex [Poly-Iron] 150 mg PO DAILY 07/27/16 [History] Losartan [Cozaar] 50 mg PO DAILY 07/27/16 [History] Multivitamin [Daily Mirtha] 1 each PO DAILY 07/27/16 [History] Omeprazole [Omeprazole] 20 mg PO DAILY 07/27/16 [History] Travoprost [Travatan Z] 1 drop EYEBOTH BEDTIME 07/27/16 [History] atorvaSTATin [Lipitor] 20 mg PO BEDTIME 07/27/16 [History] glipiZIDE [Glipizide] 10 mg PO DAILY 07/27/16 [History] Acetaminophen 650 mg PO Q4HR PRN 07/24/17 [History] Acetaminophen [Tylenol Extra Strength] 500 mg PO Q6HR PRN 07/24/17 [History] Past Medical History HEENT History: Reports: Glaucoma, Hard of Hearing, Other (See Below) Other HEENT History: per [employer] form has glasses and hearing aides Cardiovascular History: Reports: Heart Failure, Hypertension, Other (See Below) Other Cardiovascular History: chronic ischemic heart disease Gastrointestinal History: Reports: GERD Genitourinary History: Reports: Chronic Renal Insuffiency, Urinary Incontinence , UTI, Recurrent, Other (See Below) Other Genitourinary History: overactive bladder Other OB/BYN History: hysterectomy and oophorectomy Musculoskeletal History: Reports: Osteoarthritis, Osteoporosis Neurological History: Reports: Alzheimers Disease, Other (See Below) Other Neuro History: organic brain syndrom Psychiatric History: Reports: Depression Endocrine/Metabolic History: Reports: Diabetes, Type II, Osteoporosis, Other ( See Below) Other Endocrine/Metabolic History: vit B12 deficency; anemia; hyperlipidemia Hematologic History: Reports: B12 Deficiency - Infectious Disease History Other Infectious Disease History: unknown none listed on ER or [employer] report - Past Surgical History HEENT Surgical History: Reports: Cataract Surgery GI Surgical History: Reports: Cholecystectomy Female Surgical History: Reports: Hysterectomy, Oophorectomy Social & Family History - Family History Family Medical History: Unobtainable - Tobacco Use Smoking Status *Q: Never Smoker Second Hand Smoke Exposure: No - Caffeine Use Caffeine Use: Reports: None - Recreational Drug Use Recreational Drug Use: No - Living Situation & Occupation Living situation: Reports: Extended Care Facility Occupation: Retired H&P Review of Systems - Review of Systems: Review Of Systems: ROS reveals no pertinent complaints other than HPI. Exam - Exam Exam: See Below - Vital Signs Vital Signs: Last Vital Signs Temp 36.7 C 07/27/17 02:08 Pulse 72 07/27/17 08:47 Resp 16 07/27/17 02:08 BP 126/62 07/27/17 08:47 Pulse Ox 95 07/27/17 02:08 Weight: 70.942 kg - Exam General: Alert, Oriented, Cooperative HEENT: EOMI, Hearing Intact Neck: Supple, Trachea Midline Lungs: Clear to Auscultation, Normal Respiratory Effort Cardiovascular: Regular Rate, Regular Rhythm, Normal S1, Normal S2 GI/Abdominal Exam: Normal Bowel Sounds, Soft, Non-Tender, Other (Well-healed cholecystectomy incision) Rectal (Female) Exam: Deferred Skin: Warm, Dry, Intact Neuro Extensive - Mental Status: Alert, Oriented x3, Normal Mood/Affect Psychiatric: Alert - Patient Data Lab Results Last 24 hrs: Laboratory Results - last 24 hr 07/26/17 07/26/17 07/27/17 Range/Units 09:28 20:33 06:03 POC Glucose 118 H 130 H 94 (83-110) mg/dL Result Diagrams: 07/25/17 06:35 07/25/17 06:35 Consult PN Assessment/Plan Procedures: Procedures ASSAY OF NATRIURETIC PEPTIDE (12/28/16) ASSAY OF TROPONIN QUANT (12/28/16) BLOOD CULTURE FOR BACTERIA (12/28/16) CHEST X-RAY 1 VIEW FRONTAL (12/28/16) COMPLETE CBC W/AUTO DIFF WBC (12/28/16) COMPREHEN METABOLIC PANEL (12/28/16) CREATINE MB FRACTION (12/28/16) CT HEAD/BRAIN W/O DYE (07/27/16) DXA BONE DENSITY AXIAL (01/28/16) ELECTROCARDIOGRAM TRACING (12/28/16) EMERGENCY DEPT VISIT (12/28/16) EMERGENCY DEPT VISIT (07/27/16) FIBRIN DEGRADATION QUANT (12/28/16) GLUCOSE BLOOD TEST (12/28/16) HYDRATE IV INFUSION ADD-ON (12/28/16) HYDRATION IV INFUSION INIT (12/28/16) PROTHROMBIN TIME (12/28/16) ROUTINE VENIPUNCTURE (12/28/16) URINALYSIS AUTO W/SCOPE (12/28/16) URINE CULTURE/COLONY COUNT (12/28/16) Problem List Initiated/Reviewed/Updated: Yes My Orders Last 24 Hours: imp: Nontoxic, nonseptic, asymptomatic patient with 1 blood culture of strep bovis. This organism is normally enteric and may be related to any foregut midgut or hindgut structure. I'm not sure if panendoscopy would add value to her workup at this point. Urgent or emergent panendoscopy is not indicated. If she would come to need further diagnostic studies especially in the setting of a DNR/DNI status this can be discussed with her power of traffic law attorney and her primary care physician and can be performed as an outpatient. rec: Medical management.
[2017-07-27] MEDS: Furosemide 40 MG Tab PO SCH (10:29)
[2017-07-27] MEDS: cefTRIAXone 1 GM in Sodium Chloride 0.9% 100 ML IV SCH (11:26)
--- NOTE | 2017-07-27 14:53 | PCM.PN ---
- General Info Date of Service: 07/27/17 Admission Dx/Problem (Free Text): Admission Diagnosis/Problem Admission Diagnosis/Problem Fever Subjective Update: Patient seen bedside this morning with the nurse. Complete echocardiogram being performed, still awaiting results to evaluate for endocarditis. Review of patient's previous labs on admission showed elevated transaminases as liver could be the source of the septicemia. We'll repeat hepatic function panel and obtain a noncontrast CT of the liver as ultrasound showed intrahepatic biliary tree air. We'll discontinue vancomycin as ceftriaxone was shown to have a good VALERIE for the bacteria. Surgery consult and recommendations noted and appreciated. Functional Status: Reports: Pain Controlled, Tolerating Diet, Ambulating, Urinating. Denies: New Symptoms - Review of Systems General: Reports: No Symptoms HEENT: Reports: No Symptoms Pulmonary: Reports: No Symptoms Cardiovascular: Reports: No Symptoms Gastrointestinal: Reports: No Symptoms Genitourinary: Reports: No Symptoms Musculoskeletal: Reports: No Symptoms Skin: Reports: No Symptoms Neurological: Reports: No Symptoms Psychiatric: Reports: No Symptoms - Patient Data Vitals - Most Recent: Last Vital Signs Temp 98.1 F 07/27/17 12:39 Pulse 61 07/27/17 12:39 Resp 18 07/27/17 12:39 BP 111/60 07/27/17 12:39 Pulse Ox 96 07/27/17 12:39 Weight - Most Recent: 70.942 kg I&O - Last 24 Hours: Intake & Output 07/26/17 07/27/17 07/27/17 22:59 06:59 14:59 Intake Total 790 1050 420 Output Total 200 600 Balance 590 450 420 Lab Results Last 24 Hours: Laboratory Results - last 24 hr 07/26/17 07/27/17 07/27/17 Range/Units 20:33 06:03 11:00 POC Glucose 130 H 94 226 H (83-110) mg/dL Med Orders - Current: Current Medications Acetaminophen (Tylenol) 650 mg PO Q4H PRN PRN Reason: Pain (Mild 1-3)/fever Hydrocodone Bitart/Acetaminophen ([place] 325-5 Mg) 1 tab PO Q4H PRN PRN Reason: Pain (moderate 4-6) Hydrocodone Bitart/Acetaminophen ([place] 325-5 Mg) 2 tab PO Q4H PRN PRN Reason: Pain (moderate 4-6) Ascorbic Acid (Vitamin C) 500 mg PO DAILY [facility] Last Admin: 07/27/17 08:47 Dose: 500 mg Aspirin (Aspirin) 81 mg PO DAILY [facility] Last Admin: 07/27/17 08:48 Dose: 81 mg Carvedilol (Coreg) 6.25 mg PO BID [facility] Last Admin: 07/27/17 08:47 Dose: 6.25 mg Diltiazem HCl (Cardizem Cd) 120 mg PO DAILY [facility] Last Admin: 07/27/17 08:47 Dose: 120 mg Docusate Sodium (Colace) 100 mg PO BID PRN PRN Reason: Constipation Donepezil HCl (Aricept) 5 mg PO BEDTIME [facility] Last Admin: 07/26/17 21:16 Dose: 5 mg Enoxaparin Sodium (Lovenox) 30 mg SUBCUT DAILY [facility] Last Admin: 07/27/17 08:48 Dose: 30 mg Furosemide (Lasix) 40 mg PO WITHLUNCH [facility] Last Admin: 07/27/17 10:29 Dose: 40 mg Furosemide (Lasix) 80 mg PO DAILY [facility] Last Admin: 07/27/17 08:48 Dose: 80 mg Glipizide (Glucotrol) 10 mg PO DAILY [facility] Last Admin: 07/27/17 08:47 Dose: 10 mg Ceftriaxone Sodium 1 gm/ (Sodium Chloride) 100 mls @ 200 mls/hr IV Q24H [facility] Last Admin: 07/27/17 11:26 Dose: 200 mls/hr Insulin Detemir (Levemir) 7 unit SUBCUT BID [facility] Last Admin: 07/27/17 08:46 Dose: 7 units Latanoprost (Xalatan 0.005% Oph Soln) 0 ml EYEBOTH BEDTIME [facility] Last Admin: 07/26/17 21:20 Dose: 1 drop Losartan Potassium (Cozaar) 50 mg PO DAILY [facility] Last Admin: 07/27/17 08:47 Dose: 50 mg Magnesium Hydroxide (Milk Of Magnesia) 30 ml PO Q12H PRN PRN Reason: Constipation Multivitamins (Thera) 1 each PO DAILY [facility] Last Admin: 07/27/17 08:47 Dose: 1 each Ondansetron HCl (Zofran Odt) 4 mg PO Q6H PRN PRN Reason: nausea, able to take PO Ondansetron HCl (Zofran) 4 mg IV Q6H PRN PRN Reason: Nausea/Vomiting Pantoprazole Sodium (Protonix) 40 mg PO DAILY@0700 [facility] Last Admin: 07/27/17 06:58 Dose: 40 mg Polyethylene Glycol (Miralax) 17 gm PO DAILY PRN PRN Reason: Constipation Polysaccharide Iron Complex (Ferrex 150) 150 mg PO DAILY [facility] Last Admin: 07/27/17 08:48 Dose: 150 mg Saccharomyces Boulardii (Florastor) 250 mg PO BID [facility] Simvastatin (Zocor) 20 mg PO BEDTIME [facility] Last Admin: 07/26/17 21:18 Dose: 20 mg Temazepam (Restoril) 7.5 mg PO BEDTIME PRN PRN Reason: Sleep Vit A/Vit C/Vit E/Selen/Cu/Zn/Lutei (Icaps Mv) 1 tab PO DAILY [facility] Last Admin: 07/27/17 08:47 Dose: 1 tab Discontinued Medications Denosumab (Prolia) 60 mg SUBCUT ASDIRECTED [facility] Sodium Chloride (Normal Saline) 1,000 mls @ 150 mls/hr IV ASDIRECTED [facility] Last Admin: 07/24/17 09:42 Dose: 150 mls/hr Ceftriaxone Sodium 1 gm/ (Sodium Chloride) 100 mls @ 200 mls/hr IV ONETIME ONE Stop: 07/24/17 12:37 Last Admin: 07/24/17 12:45 Dose: 200 mls/hr Sodium Chloride (Normal Saline) 1,000 mls @ 125 mls/hr IV ASDIRECTED [facility] Vancomycin HCl 1 gm/ Sodium (Chloride) 250 mls @ 250 mls/hr IV Q24H [facility] Last Admin: 07/26/17 21:21 Dose: 250 mls/hr Ibuprofen (Motrin) 600 mg PO ONETIME ONE Stop: 07/24/17 09:17 Last Admin: 07/24/17 09:41 Dose: 600 mg Influenza Virus Vaccine (Pharmacy To Dose - Influenza Vaccine) 1 each IM ONETIME ONE Stop: 07/24/17 14:53 Influenza Virus Vaccine (Fluzone High-Dose 2017-18) 180 mcg IM .ONCE ONE Stop: 07/24/17 15:01 Influenza Virus Vaccine (Pharmacy To Dose - Influenza Vaccine) 0 each IM ONETIME ONE Stop: 07/27/17 13:43 Morphine Sulfate (Morphine) 2 mg IVPUSH Q2H PRN PRN Reason: Pain (severe 7-10) Stop: 07/25/17 17:49 Pneumococcal Polyvalent Vaccine (Pneumovax 23) 0.5 ml IM .ONCE ONE Stop: 07/24/17 14:53 Vancomycin HCl (Pharmacy To Dose - Vancomycin) 1 dose .XX ASDIRECTED PRN PRN Reason: RX to Dose - Exam General: Alert, Oriented HEENT: Pupils Equal, Pupils Reactive, EOMI, Mucous Membr. Moist/[place] Neck: Supple Lungs: Clear to Auscultation, Normal Respiratory Effort Cardiovascular: Regular Rate, Regular Rhythm GI/Abdominal Exam: Normal Bowel Sounds, Soft, Non-Tender, No Organomegaly, No Distention, No Abnormal Bruit, No Mass, Pelvis Stable (Female) Exam: Deferred Back Exam: Normal Inspection Extremities: Normal Inspection, Normal Range of Motion, Non-Tender, No Pedal Edema, Normal Capillary Refill Peripheral Pulses: 2+: Carotid (L), Carotid (R), Brachial (L), Brachial (R), Radial (L), Radial (R), Femoral (L), Femoral (R), Popliteal (L), Popliteal (R), Posterior Tibial (L), Posterior Tibial (R), Dorsalis Pedis (L), Dorsalis Pedis ( R) Skin: Warm, Dry, Intact Neurological: No New Focal Deficit Psy/Mental Status: Alert, Normal Affect, Normal Mood - Problem List & Annotations (1) Sepsis SNOMED Code(s): 31995561 Code(s): A41.9 - SEPSIS, UNSPECIFIED ORGANISM Status: Acute Priority: High Current Visit: Yes Onset Date: ~07/24/17 Qualifiers: Sepsis type: Streptococcus, other Qualified Code(s): A40.8 - Other streptococcal sepsis Annotation/Comment:: Streptococcus bovis septicemia (2) Infection due to Streptococcus bovis SNOMED Code(s): 75041904 Code(s): A49.1 - STREPTOCOCCAL INFECTION, UNSPECIFIED SITE Status: Acute Priority: High Current Visit: Yes (3) Escherichia coli urinary tract infection SNOMED Code(s): 240549067 Code(s): N39.0 - URINARY TRACT INFECTION, SITE NOT SPECIFIED; B96.20 - UNSP ESCHERICHIA COLI THE CAUSE OF DISEASES CLASSD ELSWHR Status: Acute Priority: High Current Visit: Yes (4) Abnormal transaminases SNOMED Code(s): 485299959 Code(s): R74.8 - ABNORMAL LEVELS OF OTHER SERUM ENZYMES Status: Acute Priority: High Current Visit: Yes (5) Dementia SNOMED Code(s): 71494939 Code(s): F03.90 - UNSPECIFIED DEMENTIA WITHOUT BEHAVIORAL DISTURBANCE Status: Chronic Priority: Low Current Visit: Yes Qualifiers: Dementia type: Alzheimer's disease Alzheimer's disease onset: late-onset Dementia behavioral disturbance: without behavioral disturbance Qualified Code (s): G30.1 - Alzheimer's disease with late onset; F02.80 - Dementia in other diseases classified elsewhere without behavioral disturbance; F02.80 - Dementia in other diseases classified elsewhere without behavioral disturbance; F02.80 - Dementia in other diseases classified elsewhere without behavioral disturbance (6) Elevated troponin SNOMED Code(s): 353198413 Code(s): R74.8 - ABNORMAL LEVELS OF OTHER SERUM ENZYMES Status: Acute Priority: High Current Visit: Yes (7) Fever SNOMED Code(s): 062230217 Code(s): R50.9 - FEVER, UNSPECIFIED Status: Acute Priority: High Current Visit: Yes Qualifiers: Encounter type: initial encounter (8) Lactic acidosis SNOMED Code(s): 51686674 Code(s): E87.2 - ACIDOSIS Status: Acute Priority: High Current Visit: Yes Onset Date: ~07/24/17 - Problem List Review Problem List Initiated/Reviewed/Updated: Yes - My Orders Last 24 Hours: My Active Orders 07/27/17 14:27 Abdomen wo Cont [CT] Routine HEPATIC FUNCTION PANEL,HFP [CHEM] Routine 07/27/17 21:00 Saccharomyces Boulardii [Florastor] 250 mg PO BID 07/28/17 05:11 BASIC METABOLIC PANEL,BMP [CHEM] AM CBC WITH AUTO DIFF [HEME] AM - Assessment Assessment:: 1. Sepsis due to Streptococcus bovis. 2. Urinary tract infection due to Escherichia coli. 3. Alzheimer's dementia. 4. Elevated transaminases. - Plan Plan:: 1. Will discontinue IV vancomycin and continue on IV Rocephin. 2. Continue IV Rocephin 1 g every 24 hours. We will determine how long patient will stay on IV antibiotic therapy based on the results of complete echocardiogram. 3. Follow results of complete echocardiogram. We'll request noncontrast CT of the liver to evaluate for intrahepatic biliary tree air. 4. Hepatitic function panel. 4. General surgery consult and recommendations noted and appreciated in the chart. Patient will be advised to follow up with her primary care physician for colonoscopy as outpatient if needed. CODE STATUS: DNR/DNI.
[2017-07-27] MEDS: Donepezil 10 MG Tab PO SCH (21:09)
[2017-07-27] MEDS: Simvastatin 20 MG Tab PO SCH (21:10)
[2017-07-27] MEDS: Latanoprost 0.005% Ophth Soln 2.5 ML Bottle EYEBOTH SCH (21:15)
[2017-07-27] MEDS: Saccharomyces Boulardii (Probiotic) 250 MG Cap PO SCH (21:15)
[2017-07-28] MEDS: Pantoprazole 40 MG Tab.CR PO SCH (06:07)
--- NOTE | 2017-07-28 07:11 | CT ---
CT abdomen Technique: Multiple axial sections were obtained from above the dome of the diaphragm inferiorly to the iliac crests. Intravenous and oral contrast not utilized. Comparison: Previous abdominal ultrasound of the right upper quadrant dated 04/04. Findings: Intrahepatic biliary air is identified. Surgical clips are noted from previous cholecystectomy. No extrahepatic biliary duct dilatation is appreciated. Please correlate if patient has had previous intervention at the sphincter of [place] as an etiology for the biliary air. There is a questionable small calcification within the distal CBD measuring 2.4 mm. Alternatively this could be a pancreatic calcification lying close to this distal CBD. Pancreas shows some atrophy with fatty infiltration. Visualized lung bases show mild fibrosis. Spleen size is normal. Cyst is identified within each kidney. No hydronephrosis is seen of either kidney. Adrenal glands show no nodule. Aorta shows diffuse atherosclerotic calcification which continues into the iliac vessels without aneurysm. Fat- containing umbilical hernia is incidentally noted. Diverticuli are seen throughout the visualized colon. No mesenteric abnormalities are seen. There are some anastomotic sutures being seen within bowel. Bone window settings were reviewed which appear within normal limits for the patient's age. Impression: 1. Intrahepatic biliary air, please correlate if patient has had previous surgery at the sphincter of Kuldeep. 2. Small 2.4 mm calcification within the distal CBD or close to the CBD within the pancreas. 3. Other incidental findings as noted above. Diagnostic code #3 MTDD
--- NOTE | 2017-07-28 08:05 | PCM.CONSN ---
- General Info Date of Service: 07/28/17 Functional Status: Reports: Pain Controlled, Tolerating Diet, Ambulating - Patient Data Vitals - Most Recent: Last Vital Signs Temp 35.7 C 07/28/17 03:50 Pulse 61 07/28/17 03:50 Resp 14 07/28/17 03:50 BP 117/54 L 07/28/17 03:50 Pulse Ox 95 07/28/17 03:50 Weight - Most Recent: 71.441 kg I&O - Last 24 Hours: Intake & Output 07/27/17 07/28/17 07/28/17 22:59 06:59 14:59 Intake Total 780 150 Output Total 950 500 Balance -170 -350 Lab Results Last 24 Hours: Laboratory Results - last 24 hr 07/27/17 07/27/17 07/27/17 Range/Units 11:00 15:25 17:24 WBC (3.98-10.04) K/mm3 RBC (3.98-5.22) M/mm3 Hgb (11.2-15.7) gm/L Hct (34.1-44.9) % MCV (79.4-94.8) fl MCH (25.6-32.2) pg MCHC (32.2-35.5) g/dl RDW Std Deviation (36.4-46.3) fL Plt Count (182-369) K/mm3 MPV (9.4-12.3) fl Neut % (Auto) (34.0-71.1) % Lymph % (Auto) (19.3-51.7) % [place] % (Auto) (4.7-12.5) % Eos % (Auto) (0.7-5.8) Baso % (Auto) (0.1-1.2) % Neut # (Auto) (1.56-6.13) K/mm3 Lymph # (Auto) (1.18-3.74) K/mm3 [place] # (Auto) (0.24-0.36) K/mm3 Eos # (Auto) (0.04-0.36) K/mm3 Baso # (Auto) (0.01-0.08) K/mm3 Sodium (136-145) mEq/L Potassium (3.5-5.1) mEq/L Chloride (98-107) mEq/L Carbon Dioxide (21-32) mEq/L Anion Gap (5-15) BUN (7-18) mg/dL Creatinine (0.55-1.02) mg/dL Est Cr Clr Drug Dosing mL/min Estimated GFR (MDRD) (>60) mL/min BUN/Creatinine Ratio (14-18) Glucose (83-115) mg/dL POC Glucose 226 H 108 (83-110) mg/dL Calcium (8.5-10.1) mg/dL Total Bilirubin 0.3 (0.2-1.0) mg/dL Direct Bilirubin 0.10 (0.0-0.2) mg/dl Indirect Bilirubin 0.20 AST 83 H (15-37) U/L ALT 114 H (14-59) U/L Alkaline Phosphatase 186 H (46-116) U/L Total Protein 7.2 (6.4-8.2) g/dl Albumin 2.9 L (3.4-5.0) g/dl Globulin 4.3 gm/dL Albumin/Globulin Ratio 0.7 L (1-2) 07/27/17 07/28/17 07/28/17 Range/Units 21:55 06:00 06:00 WBC 6.72 (3.98-10.04) K/mm3 RBC 3.93 L (3.98-5.22) M/mm3 Hgb 12.1 (11.2-15.7) gm/L Hct 37.6 (34.1-44.9) % MCV 95.7 H (79.4-94.8) fl MCH 30.8 (25.6-32.2) pg MCHC 32.2 (32.2-35.5) g/dl RDW Std Deviation 47.3 H (36.4-46.3) fL Plt Count 193 (182-369) K/mm3 MPV 10.3 (9.4-12.3) fl Neut % (Auto) 61.3 (34.0-71.1) % Lymph % (Auto) 24.6 (19.3-51.7) % [place] % (Auto) 9.5 (4.7-12.5) % Eos % (Auto) 3.9 (0.7-5.8) Baso % (Auto) 0.6 (0.1-1.2) % Neut # (Auto) 4.12 (1.56-6.13) K/mm3 Lymph # (Auto) 1.65 (1.18-3.74) K/mm3 [place] # (Auto) 0.64 H (0.24-0.36) K/mm3 Eos # (Auto) 0.26 (0.04-0.36) K/mm3 Baso # (Auto) 0.04 (0.01-0.08) K/mm3 Sodium 144 (136-145) mEq/L Potassium 4.1 (3.5-5.1) mEq/L Chloride 107 (98-107) mEq/L Carbon Dioxide 29 (21-32) mEq/L Anion Gap 12.1 (5-15) BUN 26 H (7-18) mg/dL Creatinine 1.2 H (0.55-1.02) mg/dL Est Cr Clr Drug Dosing 22.83 mL/min Estimated GFR (MDRD) 42 (>60) mL/min BUN/Creatinine Ratio 21.7 H (14-18) Glucose 114 (83-115) mg/dL POC Glucose 127 H (83-110) mg/dL Calcium 9.3 (8.5-10.1) mg/dL Total Bilirubin (0.2-1.0) mg/dL Direct Bilirubin (0.0-0.2) mg/dl Indirect Bilirubin AST (15-37) U/L ALT (14-59) U/L Alkaline Phosphatase (46-116) U/L Total Protein (6.4-8.2) g/dl Albumin (3.4-5.0) g/dl Globulin gm/dL Albumin/Globulin Ratio (1-2) 07/28/17 Range/Units 06:24 WBC (3.98-10.04) K/mm3 RBC (3.98-5.22) M/mm3 Hgb (11.2-15.7) gm/L Hct (34.1-44.9) % MCV (79.4-94.8) fl MCH (25.6-32.2) pg MCHC (32.2-35.5) g/dl RDW Std Deviation (36.4-46.3) fL Plt Count (182-369) K/mm3 MPV (9.4-12.3) fl Neut % (Auto) (34.0-71.1) % Lymph % (Auto) (19.3-51.7) % [place] % (Auto) (4.7-12.5) % Eos % (Auto) (0.7-5.8) Baso % (Auto) (0.1-1.2) % Neut # (Auto) (1.56-6.13) K/mm3 Lymph # (Auto) (1.18-3.74) K/mm3 [place] # (Auto) (0.24-0.36) K/mm3 Eos # (Auto) (0.04-0.36) K/mm3 Baso # (Auto) (0.01-0.08) K/mm3 Sodium (136-145) mEq/L Potassium (3.5-5.1) mEq/L Chloride (98-107) mEq/L Carbon Dioxide (21-32) mEq/L Anion Gap (5-15) BUN (7-18) mg/dL Creatinine (0.55-1.02) mg/dL Est Cr Clr Drug Dosing mL/min Estimated GFR (MDRD) (>60) mL/min BUN/Creatinine Ratio (14-18) Glucose (83-115) mg/dL POC Glucose 108 (83-110) mg/dL Calcium (8.5-10.1) mg/dL Total Bilirubin (0.2-1.0) mg/dL Direct Bilirubin (0.0-0.2) mg/dl Indirect Bilirubin AST (15-37) U/L ALT (14-59) U/L Alkaline Phosphatase (46-116) U/L Total Protein (6.4-8.2) g/dl Albumin (3.4-5.0) g/dl Globulin gm/dL Albumin/Globulin Ratio (1-2) Tommy Results Last 24 Hours: Microbiology 07/28/17 03:15 Stool for WBCs - Final Stool / Feces NO WBC SEEN Med Orders - Current: Current Medications Acetaminophen (Tylenol) 650 mg PO Q4H PRN PRN Reason: Pain (Mild 1-3)/fever Hydrocodone Bitart/Acetaminophen ([place] 325-5 Mg) 1 tab PO Q4H PRN PRN Reason: Pain (moderate 4-6) Hydrocodone Bitart/Acetaminophen ([place] 325-5 Mg) 2 tab PO Q4H PRN PRN Reason: Pain (moderate 4-6) Ascorbic Acid (Vitamin C) 500 mg PO DAILY [facility] Last Admin: 07/27/17 08:47 Dose: 500 mg Aspirin (Aspirin) 81 mg PO DAILY [facility]CLUD[facility] Last Admin: 07/27/17 08:48 Dose: 81 mg Carvedilol (Coreg) 6.25 mg PO BID [facility]CLUD[facility] Last Admin: 07/27/17 21:11 Dose: 6.25 mg Diltiazem HCl (Cardizem Cd) 120 mg PO DAILY [facility] Last Admin: 07/27/17 08:47 Dose: 120 mg Docusate Sodium (Colace) 100 mg PO BID PRN PRN Reason: Constipation Donepezil HCl (Aricept) 5 mg PO BEDTIME [facility]CLUD[facility] Last Admin: 07/27/17 21:09 Dose: 5 mg Enoxaparin Sodium (Lovenox) 30 mg SUBCUT DAILY [facility] Last Admin: 07/27/17 08:48 Dose: 30 mg Furosemide (Lasix) 40 mg PO WITHLUNCH COUNT [facility]CLUDES [facility] Last Admin: 07/27/17 10:29 Dose: 40 mg Furosemide (Lasix) 80 mg PO DAILY [facility] Last Admin: 07/27/17 08:48 Dose: 80 mg Glipizide (Glucotrol) 10 mg PO DAILY [facility]CLUD[facility] Last Admin: 07/27/17 08:47 Dose: 10 mg Ceftriaxone Sodium 1 gm/ (Sodium Chloride) 100 mls @ 200 mls/hr IV Q24H COUNT [facility]CLUDES [facility] Last Admin: 07/27/17 11:26 Dose: 200 mls/hr Insulin Detemir (Levemir) 7 unit SUBCUT BID COUNT [facility]CLUD[facility] Last Admin: 07/27/17 21:59 Dose: 7 units Latanoprost (Xalatan 0.005% Ophth Soln) 0 ml EYEBOTH BEDTIME COUNT [facility]CLUD[facility] Last Admin: 07/27/17 21:15 Dose: 1 drop Losartan Potassium (Cozaar) 50 mg PO DAILY [facility] Last Admin: 07/27/17 08:47 Dose: 50 mg Magnesium Hydroxide (Milk Of Magnesia) 30 ml PO Q12H PRN PRN Reason: Constipation Multivitamins (Thera) 1 each PO DAILY [facility]CLUD[facility] Last Admin: 07/27/17 08:47 Dose: 1 each Ondansetron HCl (Zofran Odt) 4 mg PO Q6H PRN PRN Reason: nausea, able to take PO Ondansetron HCl (Zofran) 4 mg IV Q6H PRN PRN Reason: Nausea/Vomiting Pantoprazole Sodium (Protonix) 40 mg PO DAILY@0700 [facility]CLUD[facility] Last Admin: 07/28/17 06:07 Dose: 40 mg Polyethylene Glycol (Miralax) 17 gm PO DAILY PRN PRN Reason: Constipation Polysaccharide Iron Complex (Ferrex 150) 150 mg PO DAILY COUNT [facility]CLUD[facility] Last Admin: 07/27/17 08:48 Dose: 150 mg Saccharomyces Boulardii (Florastor) 250 mg PO BID COUNT [facility]CLUD[facility] Last Admin: 07/27/17 21:15 Dose: 250 mg Simvastatin (Zocor) 20 mg PO BEDTIME [facility]CLUD[facility] Last Admin: 07/27/17 21:10 Dose: 20 mg Temazepam (Restoril) 7.5 mg PO BEDTIME PRN PRN Reason: Sleep Vit A/Vit C/Vit E/Selen/Cu/Zn/Lutei (Icaps Mv) 1 tab PO DAILY [facility]CLUD[facility] Last Admin: 07/27/17 08:47 Dose: 1 tab Discontinued Medications Denosumab (Prolia) 60 mg SUBCUT ASDIRECTED COUNT INCLUDES THE [facility] Sodium Chloride (Normal Saline) 1,000 mls @ 150 mls/hr IV ASDIRECTED COUNT INCLUDES THE [facility] Last Admin: 07/24/17 09:42 Dose: 150 mls/hr Ceftriaxone Sodium 1 gm/ (Sodium Chloride) 100 mls @ 200 mls/hr IV ONETIME ONE Stop: 07/24/17 12:37 Last Admin: 07/24/17 12:45 Dose: 200 mls/hr Sodium Chloride (Normal Saline) 1,000 mls @ 125 mls/hr IV ASDIRECTED COUNT INCLUDES THE [facility] Vancomycin HCl 1 gm/ Sodium (Chloride) 250 mls @ 250 mls/hr IV Q24H COUNT INCLUDES THE [facility] Last Admin: 07/26/17 21:21 Dose: 250 mls/hr Ibuprofen (Motrin) 600 mg PO ONETIME ONE Stop: 07/24/17 09:17 Last Admin: 07/24/17 09:41 Dose: 600 mg Influenza Virus Vaccine (Pharmacy To Dose - Influenza Vaccine) 1 each IM ONETIME ONE Stop: 07/24/17 14:53 Influenza Virus Vaccine (Fluzone High-Dose 2017-18) 180 mcg IM .ONCE ONE Stop: 07/24/17 15:01 Influenza Virus Vaccine (Pharmacy To Dose - Influenza Vaccine) 0 each IM ONETIME ONE Stop: 07/27/17 13:43 Morphine Sulfate (Morphine) 2 mg IVPUSH Q2H PRN PRN Reason: Pain (severe 7-10) Stop: 07/25/17 17:49 Pneumococcal Polyvalent Vaccine (Pneumovax 23) 0.5 ml IM .ONCE ONE Stop: 07/24/17 14:53 Vancomycin HCl (Pharmacy To Dose - Vancomycin) 1 dose .XX ASDIRECTED PRN PRN Reason: RX to Dose - Exam GI/Abdominal Exam: Soft Consult PN Assessment/Plan Procedures: Procedures ASSAY OF NATRIURETIC PEPTIDE (12/28/16) ASSAY OF TROPONIN QUANT (12/28/16) BLOOD CULTURE FOR BACTERIA (12/28/16) CHEST X-RAY 1 VIEW FRONTAL (12/28/16) COMPLETE CBC W/AUTO DIFF WBC (12/28/16) COMPREHEN METABOLIC PANEL (12/28/16) CREATINE MB FRACTION (12/28/16) CT HEAD/BRAIN W/O DYE (07/27/16) DXA BONE DENSITY AXIAL (01/28/16) ELECTROCARDIOGRAM TRACING (12/28/16) EMERGENCY DEPT VISIT (12/28/16) EMERGENCY DEPT VISIT (07/27/16) FIBRIN DEGRADATION QUANT (12/28/16) GLUCOSE BLOOD TEST (12/28/16) HYDRATE IV INFUSION ADD-ON (12/28/16) HYDRATION IV INFUSION INIT (12/28/16) PROTHROMBIN TIME (12/28/16) ROUTINE VENIPUNCTURE (12/28/16) URINALYSIS AUTO W/SCOPE (12/28/16) URINE CULTURE/COLONY COUNT (12/28/16) Problem List Initiated/Reviewed/Updated: Yes My Orders Last 24 Hours: Discussed with hospitalist. Plan: Signing off.
[2017-07-28] MEDS: Aspirin 81 MG Tab.Chew PO SCH (09:00)
[2017-07-28] MEDS: Furosemide 80 MG Tab PO SCH ×2 (09:30→09:59)
[2017-07-28] MEDS: Insulin Detemir 100 Units/ML 3 ML Pen SUBCUT SCH ×2 (09:30→20:51)
[2017-07-28] MEDS: Enoxaparin 30 MG/0.3 ML Syringe SUBCUT SCH (09:30)
[2017-07-28] MEDS: Losartan 25 MG Tab PO SCH (09:30)
[2017-07-28] MEDS: Ascorbic Acid 500 MG Tab PO SCH (09:58)
[2017-07-28] MEDS: Iron Polysaccharides Complex 150 MG Cap PO SCH (09:58)
[2017-07-28] MEDS: Saccharomyces Boulardii (Probiotic) 250 MG Cap PO SCH ×2 (09:58→20:46)
[2017-07-28] MEDS: Multivitamins,Therapeutic Tab PO SCH (09:58)
[2017-07-28] MEDS: Multivitamins with Minerals/Folic Acid/Lutein/Zeaxanth Tab PO SCH (09:58)
[2017-07-28] MEDS: Carvedilol 6.25 MG Tab PO SCH ×2 (10:07→20:48)
[2017-07-28] MEDS: Diltiazem 120 MG Cap.CD PO SCH (10:09)
--- NOTE | 2017-07-28 11:45 | PCM.PN ---
- General Info Date of Service: 07/28/17 Admission Dx/Problem (Free Text): Admission Diagnosis/Problem Admission Diagnosis/Problem Fever Subjective Update: Patient seen bedside this morning with the nurse. Still awaiting results of complete echocardiogram. Patient stable and denies any new problems. Hepatic panel noted to be improved and CT of the abdomen confirms intra-biliary duct air. Functional Status: Reports: Pain Controlled, Tolerating Diet, Ambulating, Urinating. Denies: New Symptoms - Review of Systems General: Reports: No Symptoms HEENT: Reports: No Symptoms Pulmonary: Reports: No Symptoms Cardiovascular: Reports: No Symptoms Gastrointestinal: Reports: No Symptoms Genitourinary: Reports: No Symptoms Musculoskeletal: Reports: No Symptoms Skin: Reports: No Symptoms Neurological: Reports: No Symptoms Psychiatric: Reports: No Symptoms - Patient Data Vitals - Most Recent: Last Vital Signs Temp 97.3 F 07/28/17 08:37 Pulse 46 L 07/28/17 10:07 Resp 14 07/28/17 03:50 BP 129/73 07/28/17 10:09 Pulse Ox 96 07/28/17 08:37 Weight - Most Recent: 71.441 kg I&O - Last 24 Hours: Intake & Output 07/27/17 07/28/17 07/28/17 22:59 06:59 14:59 Intake Total 780 150 180 Output Total 950 500 Balance -170 -350 180 Lab Results Last 24 Hours: Laboratory Results - last 24 hr 07/27/17 07/27/17 07/27/17 Range/Units 15:25 17:24 21:55 WBC (3.98-10.04) K/mm3 RBC (3.98-5.22) M/mm3 Hgb (11.2-15.7) gm/L Hct (34.1-44.9) % MCV (79.4-94.8) fl MCH (25.6-32.2) pg MCHC (32.2-35.5) g/dl RDW Std Deviation (36.4-46.3) fL Plt Count (182-369) K/mm3 MPV (9.4-12.3) fl Neut % (Auto) (34.0-71.1) % Lymph % (Auto) (19.3-51.7) % [place] % (Auto) (4.7-12.5) % Eos % (Auto) (0.7-5.8) Baso % (Auto) (0.1-1.2) % Neut # (Auto) (1.56-6.13) K/mm3 Lymph # (Auto) (1.18-3.74) K/mm3 [place] # (Auto) (0.24-0.36) K/mm3 Eos # (Auto) (0.04-0.36) K/mm3 Baso # (Auto) (0.01-0.08) K/mm3 Sodium (136-145) mEq/L Potassium (3.5-5.1) mEq/L Chloride (98-107) mEq/L Carbon Dioxide (21-32) mEq/L Anion Gap (5-15) BUN (7-18) mg/dL Creatinine (0.55-1.02) mg/dL Est Cr Clr Drug Dosing mL/min Estimated GFR (MDRD) (>60) mL/min BUN/Creatinine Ratio (14-18) Glucose (83-115) mg/dL POC Glucose 108 127 H (83-110) mg/dL Calcium (8.5-10.1) mg/dL Total Bilirubin 0.3 (0.2-1.0) mg/dL Direct Bilirubin 0.10 (0.0-0.2) mg/dl Indirect Bilirubin 0.20 AST 83 H (15-37) U/L ALT 114 H (14-59) U/L Alkaline Phosphatase 186 H (46-116) U/L Total Protein 7.2 (6.4-8.2) g/dl Albumin 2.9 L (3.4-5.0) g/dl Globulin 4.3 gm/dL Albumin/Globulin Ratio 0.7 L (1-2) 07/28/17 07/28/17 07/28/17 Range/Units 06:00 06:00 06:24 WBC 6.72 (3.98-10.04) K/mm3 RBC 3.93 L (3.98-5.22) M/mm3 Hgb 12.1 (11.2-15.7) gm/L Hct 37.6 (34.1-44.9) % MCV 95.7 H (79.4-94.8) fl MCH 30.8 (25.6-32.2) pg MCHC 32.2 (32.2-35.5) g/dl RDW Std Deviation 47.3 H (36.4-46.3) fL Plt Count 193 (182-369) K/mm3 MPV 10.3 (9.4-12.3) fl Neut % (Auto) 61.3 (34.0-71.1) % Lymph % (Auto) 24.6 (19.3-51.7) % [place] % (Auto) 9.5 (4.7-12.5) % Eos % (Auto) 3.9 (0.7-5.8) Baso % (Auto) 0.6 (0.1-1.2) % Neut # (Auto) 4.12 (1.56-6.13) K/mm3 Lymph # (Auto) 1.65 (1.18-3.74) K/mm3 [place] # (Auto) 0.64 H (0.24-0.36) K/mm3 Eos # (Auto) 0.26 (0.04-0.36) K/mm3 Baso # (Auto) 0.04 (0.01-0.08) K/mm3 Sodium 144 (136-145) mEq/L Potassium 4.1 (3.5-5.1) mEq/L Chloride 107 (98-107) mEq/L Carbon Dioxide 29 (21-32) mEq/L Anion Gap 12.1 (5-15) BUN 26 H (7-18) mg/dL Creatinine 1.2 H (0.55-1.02) mg/dL Est Cr Clr Drug Dosing 22.83 mL/min Estimated GFR (MDRD) 42 (>60) mL/min BUN/Creatinine Ratio 21.7 H (14-18) Glucose 114 (83-115) mg/dL POC Glucose 108 (83-110) mg/dL Calcium 9.3 (8.5-10.1) mg/dL Total Bilirubin (0.2-1.0) mg/dL Direct Bilirubin (0.0-0.2) mg/dl Indirect Bilirubin AST (15-37) U/L ALT (14-59) U/L Alkaline Phosphatase (46-116) U/L Total Protein (6.4-8.2) g/dl Albumin (3.4-5.0) g/dl Globulin gm/dL Albumin/Globulin Ratio (1-2) Tommy Results Last 24 Hours: Microbiology 07/28/17 03:15 Stool for WBCs - Final Stool / Feces NO WBC SEEN Med Orders - Current: Current Medications Acetaminophen (Tylenol) 650 mg PO Q4H PRN PRN Reason: Pain (Mild 1-3)/fever Hydrocodone Bitart/Acetaminophen ([place] 325-5 Mg) 1 tab PO Q4H PRN PRN Reason: Pain (moderate 4-6) Hydrocodone Bitart/Acetaminophen ([place] 325-5 Mg) 2 tab PO Q4H PRN PRN Reason: Pain (moderate 4-6) Ascorbic Acid (Vitamin C) 500 mg PO DAILY [facility] Last Admin: 07/28/17 09:58 Dose: 500 mg Aspirin (Aspirin) 81 mg PO DAILY [facility] Last Admin: 07/27/17 08:48 Dose: 81 mg Carvedilol (Coreg) 6.25 mg PO BID [facility] Last Admin: 07/28/17 10:07 Dose: Not Given Diltiazem HCl (Cardizem Cd) 120 mg PO DAILY [facility] Last Admin: 07/28/17 10:09 Dose: Not Given Docusate Sodium (Colace) 100 mg PO BID PRN PRN Reason: Constipation Donepezil HCl (Aricept) 5 mg PO BEDTIME [facility] Last Admin: 07/27/17 21:09 Dose: 5 mg Enoxaparin Sodium (Lovenox) 30 mg SUBCUT DAILY [facility] Last Admin: 07/28/17 09:30 Dose: 30 mg Furosemide (Lasix) 40 mg PO WITHLUNCH [facility] Last Admin: 07/27/17 10:29 Dose: 40 mg Furosemide (Lasix) 80 mg PO DAILY [facility] Last Admin: 07/28/17 09:59 Dose: 80 mg Glipizide (Glucotrol) 10 mg PO DAILY [facility] Last Admin: 07/28/17 09:59 Dose: 10 mg Ceftriaxone Sodium 1 gm/ (Sodium Chloride) 100 mls @ 200 mls/hr IV Q24H [facility] Last Admin: 07/27/17 11:26 Dose: 200 mls/hr Insulin Detemir (Levemir) 7 unit SUBCUT BID [facility] Last Admin: 07/28/17 09:30 Dose: 7 units Latanoprost (Xalatan 0.005% Ophth Soln) 0 ml EYEBOTH BEDTIME [facility] Last Admin: 07/27/17 21:15 Dose: 1 drop Losartan Potassium (Cozaar) 50 mg PO DAILY [facility] Last Admin: 07/28/17 09:30 Dose: 50 mg Magnesium Hydroxide (Milk Of Magnesia) 30 ml PO Q12H PRN PRN Reason: Constipation Multivitamins (Thera) 1 each PO DAILY [facility] Last Admin: 07/28/17 09:58 Dose: 1 each Ondansetron HCl (Zofran Odt) 4 mg PO Q6H PRN PRN Reason: nausea, able to take PO Ondansetron HCl (Zofran) 4 mg IV Q6H PRN PRN Reason: Nausea/Vomiting Pantoprazole Sodium (Protonix) 40 mg PO DAILY@0700 [facility] Last Admin: 07/28/17 06:07 Dose: 40 mg Polyethylene Glycol (Miralax) 17 gm PO DAILY PRN PRN Reason: Constipation Polysaccharide Iron Complex (Ferrex 150) 150 mg PO DAILY [facility] Last Admin: 07/28/17 09:58 Dose: 150 mg Saccharomyces Boulardii (Florastor) 250 mg PO BID [facility] Last Admin: 07/28/17 09:58 Dose: 250 mg Simvastatin (Zocor) 20 mg PO BEDTIME [facility] Last Admin: 07/27/17 21:10 Dose: 20 mg Temazepam (Restoril) 7.5 mg PO BEDTIME PRN PRN Reason: Sleep Vit A/Vit C/Vit E/Selen/Cu/Zn/Lutei (Icaps Mv) 1 tab PO DAILY [facility] Last Admin: 07/28/17 09:58 Dose: 1 tab Discontinued Medications Denosumab (Prolia) 60 mg SUBCUT ASDIRECTED [facility] Sodium Chloride (Normal Saline) 1,000 mls @ 150 mls/hr IV ASDIRECTED [facility] Last Admin: 07/24/17 09:42 Dose: 150 mls/hr Ceftriaxone Sodium 1 gm/ (Sodium Chloride) 100 mls @ 200 mls/hr IV ONETIME ONE Stop: 07/24/17 12:37 Last Admin: 07/24/17 12:45 Dose: 200 mls/hr Sodium Chloride (Normal Saline) 1,000 mls @ 125 mls/hr IV ASDIRECTED [facility] Vancomycin HCl 1 gm/ Sodium (Chloride) 250 mls @ 250 mls/hr IV Q24H [facility] Last Admin: 07/26/17 21:21 Dose: 250 mls/hr Ibuprofen (Motrin) 600 mg PO ONETIME ONE Stop: 07/24/17 09:17 Last Admin: 07/24/17 09:41 Dose: 600 mg Influenza Virus Vaccine (Pharmacy To Dose - Influenza Vaccine) 1 each IM ONETIME ONE Stop: 07/24/17 14:53 Influenza Virus Vaccine (Fluzone High-Dose 2017-18) 180 mcg IM .ONCE ONE Stop: 07/24/17 15:01 Influenza Virus Vaccine (Pharmacy To Dose - Influenza Vaccine) 0 each IM ONETIME ONE Stop: 07/27/17 13:43 Morphine Sulfate (Morphine) 2 mg IVPUSH Q2H PRN PRN Reason: Pain (severe 7-10) Stop: 07/25/17 17:49 Pneumococcal Polyvalent Vaccine (Pneumovax 23) 0.5 ml IM .ONCE ONE Stop: 07/24/17 14:53 Vancomycin HCl (Pharmacy To Dose - Vancomycin) 1 dose .XX ASDIRECTED PRN PRN Reason: RX to Dose - Exam General: Alert, Oriented, Cooperative, No Acute Distress HEENT: Pupils Equal, Pupils Reactive, EOMI, Mucous Membr. Moist/[place] Neck: Supple Lungs: Clear to Auscultation, Normal Respiratory Effort Cardiovascular: Regular Rate, Regular Rhythm GI/Abdominal Exam: Normal Bowel Sounds, Soft, Non-Tender, No Organomegaly, No Distention, No Abnormal Bruit, No Mass, Pelvis Stable (Female) Exam: Deferred Back Exam: Normal Inspection, Full Range of Motion Extremities: Normal Inspection, Normal Range of Motion, Non-Tender, No Pedal Edema, Normal Capillary Refill Peripheral Pulses: 2+: Carotid (L), Carotid (R), Brachial (L), Brachial (R), Radial (L), Radial (R), Femoral (L), Femoral (R), Popliteal (L), Popliteal (R), Posterior Tibial (L), Posterior Tibial (R), Dorsalis Pedis (L), Dorsalis Pedis ( R) Skin: Warm, Dry, Intact Neurological: No New Focal Deficit Psy/Mental Status: Alert, Normal Affect, Normal Mood - Problem List & Annotations (1) Sepsis SNOMED Code(s): 04676677 Code(s): A41.9 - SEPSIS, UNSPECIFIED ORGANISM Status: Acute Priority: High Current Visit: Yes Onset Date: ~07/24/17 Qualifiers: Sepsis type: Streptococcus, other Qualified Code(s): A40.8 - Other streptococcal sepsis Annotation/Comment:: Streptococcus bovis septicemia (2) Infection due to Streptococcus bovis SNOMED Code(s): 32198693 Code(s): A49.1 - STREPTOCOCCAL INFECTION, UNSPECIFIED SITE Status: Acute Priority: High Current Visit: Yes (3) Escherichia coli urinary tract infection SNOMED Code(s): 071472884 Code(s): N39.0 - URINARY TRACT INFECTION, SITE NOT SPECIFIED; B96.20 - UNSP ESCHERICHIA COLI THE CAUSE OF DISEASES CLASSD ELSWHR Status: Acute Priority: High Current Visit: Yes (4) Abnormal transaminases SNOMED Code(s): 291549553 Code(s): R74.8 - ABNORMAL LEVELS OF OTHER SERUM ENZYMES Status: Acute Priority: High Current Visit: Yes (5) Dementia SNOMED Code(s): 31931318 Code(s): F03.90 - UNSPECIFIED DEMENTIA WITHOUT BEHAVIORAL DISTURBANCE Status: Chronic Priority: Low Current Visit: Yes Qualifiers: Dementia type: Alzheimer's disease Alzheimer's disease onset: late-onset Dementia behavioral disturbance: without behavioral disturbance Qualified Code (s): G30.1 - Alzheimer's disease with late onset; F02.80 - Dementia in other diseases classified elsewhere without behavioral disturbance; F02.80 - Dementia in other diseases classified elsewhere without behavioral disturbance; F02.80 - Dementia in other diseases classified elsewhere without behavioral disturbance (6) Elevated troponin SNOMED Code(s): 662074237 Code(s): R74.8 - ABNORMAL LEVELS OF OTHER SERUM ENZYMES Status: Acute Priority: High Current Visit: Yes (7) Fever SNOMED Code(s): 343429321 Code(s): R50.9 - FEVER, UNSPECIFIED Status: Acute Priority: High Current Visit: Yes Qualifiers: Encounter type: initial encounter (8) Lactic acidosis SNOMED Code(s): 11788474 Code(s): E87.2 - ACIDOSIS Status: Acute Priority: High Current Visit: Yes Onset Date: ~07/24/17 - Problem List Review Problem List Initiated/Reviewed/Updated: Yes - My Orders Last 24 Hours: My Active Orders 07/27/17 21:00 Saccharomyces Boulardii [Florastor] 250 mg PO BID 07/28/17 03:15 OVA & PARASITES BY IMMUNOASSAY [MREF] Routine - Assessment Assessment:: 1. Sepsis due to Streptococcus bovis. 2. Urinary tract infection due to Escherichia coli. 3. Alzheimer's dementia. 4. Elevated transaminases. - Plan Plan:: 1. Will discontinue IV vancomycin and continue on IV Rocephin. 2. Continue IV Rocephin 1 g every 24 hours. We will determine how long patient will stay on IV antibiotic therapy based on the results of complete echocardiogram. 3. Follow results of complete echocardiogram. 4. Patient will follow up with her primary care physician for colonoscopy as outpatient if needed. CODE STATUS: DNR/DNI.
[2017-07-28] MEDS: Furosemide 40 MG Tab PO SCH (14:24)
[2017-07-28] MEDS: cefTRIAXone 1 GM in Sodium Chloride 0.9% 100 ML IV SCH (14:26)
[2017-07-28] MEDS: Donepezil 10 MG Tab PO SCH (20:46)
[2017-07-28] MEDS: Simvastatin 20 MG Tab PO SCH (20:50)
[2017-07-28] MEDS: Latanoprost 0.005% Ophth Soln 2.5 ML Bottle EYEBOTH SCH (20:50)
[2017-07-29] MEDS ORDERED: Acetaminophen/HYDROcodone 325-5 MG Tab PO PRN (05:39)
[2017-07-29] MEDS: Pantoprazole 40 MG Tab.CR PO SCH (06:25)
[2017-07-29] MEDS: Insulin Detemir 100 Units/ML 3 ML Pen SUBCUT SCH ×2 (08:27→22:00)
[2017-07-29] MEDS: Enoxaparin 30 MG/0.3 ML Syringe SUBCUT SCH (08:27)
[2017-07-29] MEDS: Losartan 25 MG Tab PO SCH (08:28)
[2017-07-29] MEDS: Multivitamins,Therapeutic Tab PO SCH (08:28)
[2017-07-29] MEDS: Ascorbic Acid 500 MG Tab PO SCH (08:28)
[2017-07-29] MEDS: Iron Polysaccharides Complex 150 MG Cap PO SCH (08:28)
[2017-07-29] MEDS: Furosemide 80 MG Tab PO SCH (08:28)
[2017-07-29] MEDS: Diltiazem 120 MG Cap.CD PO SCH (08:28)
[2017-07-29] MEDS: Multivitamins with Minerals/Folic Acid/Lutein/Zeaxanth Tab PO SCH (08:28)
[2017-07-29] MEDS: Saccharomyces Boulardii (Probiotic) 250 MG Cap PO SCH ×2 (08:29→22:02)
[2017-07-29] MEDS: Aspirin 81 MG Tab.Chew PO SCH (08:29)
[2017-07-29] MEDS: Carvedilol 6.25 MG Tab PO SCH ×2 (08:29→22:47)
[2017-07-29] MEDS: Furosemide 40 MG Tab PO SCH (10:09)
[2017-07-29] MEDS: cefTRIAXone 1 GM in Sodium Chloride 0.9% 100 ML IV SCH ×2 (10:10→11:13)
--- NOTE | 2017-07-29 13:15 | PCM.PN ---
- General Info Date of Service: 07/29/17 Functional Status: Reports: Tolerating Diet, Ambulating - Review of Systems General: Reports: No Symptoms HEENT: Reports: No Symptoms Pulmonary: Reports: No Symptoms Cardiovascular: Reports: No Symptoms Gastrointestinal: Reports: No Symptoms Genitourinary: Reports: No Symptoms Musculoskeletal: Reports: No Symptoms Skin: Reports: No Symptoms Neurological: Reports: No Symptoms Psychiatric: Reports: No Symptoms - Patient Data Vitals - Most Recent: Last Vital Signs Temp 36.2 C 07/29/17 08:03 Pulse 73 07/29/17 08:28 Resp 19 07/29/17 08:03 BP 101/68 07/29/17 08:28 Pulse Ox 95 07/29/17 08:03 Weight - Most Recent: 70.125 kg I&O - Last 24 Hours: Intake & Output 07/28/17 07/29/17 07/29/17 22:59 06:59 14:59 Intake Total 320 400 90 Output Total 500 Balance 320 -100 90 Lab Results Last 24 Hours: Laboratory Results - last 24 hr 07/28/17 07/29/17 07/29/17 Range/Units 20:43 05:54 08:00 WBC 8.89 (3.98-10.04) K/mm3 RBC 4.27 (3.98-5.22) M/mm3 Hgb 12.8 (11.2-15.7) gm/L Hct 40.1 (34.1-44.9) % MCV 93.9 (79.4-94.8) fl MCH 30.0 (25.6-32.2) pg MCHC 31.9 L (32.2-35.5) g/dl RDW Std Deviation 46.6 H (36.4-46.3) fL Plt Count 220 (182-369) K/mm3 MPV 10.1 (9.4-12.3) fl Neut % (Auto) 69.6 (34.0-71.1) % Lymph % (Auto) 18.8 L (19.3-51.7) % [place] % (Auto) 8.8 (4.7-12.5) % Eos % (Auto) 2.2 (0.7-5.8) Baso % (Auto) 0.3 (0.1-1.2) % Neut # (Auto) 6.18 H (1.56-6.13) K/mm3 Lymph # (Auto) 1.67 (1.18-3.74) K/mm3 [place] # (Auto) 0.78 H (0.24-0.36) K/mm3 Eos # (Auto) 0.20 (0.04-0.36) K/mm3 Baso # (Auto) 0.03 (0.01-0.08) K/mm3 Sodium (136-145) mEq/L Potassium (3.5-5.1) mEq/L Chloride (98-107) mEq/L Carbon Dioxide (21-32) mEq/L Anion Gap (5-15) BUN (7-18) mg/dL Creatinine (0.55-1.02) mg/dL Est Cr Clr Drug Dosing mL/min Estimated GFR (MDRD) (>60) mL/min BUN/Creatinine Ratio (14-18) Glucose (83-115) mg/dL POC Glucose 114 H 134 H (83-110) mg/dL Calcium (8.5-10.1) mg/dL Magnesium (1.8-2.4) mg/dl Total Bilirubin (0.2-1.0) mg/dL AST (15-37) U/L ALT (14-59) U/L Alkaline Phosphatase (46-116) U/L C-Reactive Protein (<1.0) mg/dL Total Protein (6.4-8.2) g/dl Albumin (3.4-5.0) g/dl Globulin gm/dL Albumin/Globulin Ratio (1-2) 07/29/17 Range/Units 08:00 WBC (3.98-10.04) K/mm3 RBC (3.98-5.22) M/mm3 Hgb (11.2-15.7) gm/L Hct (34.1-44.9) % MCV (79.4-94.8) fl MCH (25.6-32.2) pg MCHC (32.2-35.5) g/dl RDW Std Deviation (36.4-46.3) fL Plt Count (182-369) K/mm3 MPV (9.4-12.3) fl Neut % (Auto) (34.0-71.1) % Lymph % (Auto) (19.3-51.7) % [place] % (Auto) (4.7-12.5) % Eos % (Auto) (0.7-5.8) Baso % (Auto) (0.1-1.2) % Neut # (Auto) (1.56-6.13) K/mm3 Lymph # (Auto) (1.18-3.74) K/mm3 [place] # (Auto) (0.24-0.36) K/mm3 Eos # (Auto) (0.04-0.36) K/mm3 Baso # (Auto) (0.01-0.08) K/mm3 Sodium 143 (136-145) mEq/L Potassium 3.9 (3.5-5.1) mEq/L Chloride 104 (98-107) mEq/L Carbon Dioxide 27 (21-32) mEq/L Anion Gap 15.9 H (5-15) BUN 27 H (7-18) mg/dL Creatinine 1.1 H (0.55-1.02) mg/dL Est Cr Clr Drug Dosing 24.90 mL/min Estimated GFR (MDRD) 47 (>60) mL/min BUN/Creatinine Ratio 24.5 H (14-18) Glucose 136 H (83-115) mg/dL POC Glucose (83-110) mg/dL Calcium 9.4 (8.5-10.1) mg/dL Magnesium 2.2 (1.8-2.4) mg/dl Total Bilirubin 0.3 (0.2-1.0) mg/dL AST 110 H (15-37) U/L ALT 158 H (14-59) U/L Alkaline Phosphatase 186 H (46-116) U/L C-Reactive Protein 1.5 H* (<1.0) mg/dL Total Protein 7.4 (6.4-8.2) g/dl Albumin 3.0 L (3.4-5.0) g/dl Globulin 4.4 gm/dL Albumin/Globulin Ratio 0.7 L (1-2) Tommy Results Last 24 Hours: Microbiology 07/28/17 12:30 Aerobic Blood Culture - Preliminary Blood - Venous - Lab Draw NO GROWTH AFTER 1 DAY Anaerobic Blood Culture - Preliminary NO GROWTH AFTER 1 DAY 07/28/17 11:50 Aerobic Blood Culture - Preliminary Blood - Venous NO GROWTH AFTER 1 DAY Anaerobic Blood Culture - Preliminary NO GROWTH AFTER 1 DAY 07/28/17 03:15 Cryptosporidium/Giardia - Final Stool / Feces 07/28/17 03:15 Stool for WBCs - Final Stool / Feces NO WBC SEEN Med Orders - Current: Current Medications Acetaminophen (Tylenol) 650 mg PO Q4H PRN PRN Reason: Pain (Mild 1-3)/fever Hydrocodone Bitart/Acetaminophen ([place] 325-5 Mg) 1 - 2 tab PO Q4H PRN PRN Reason: Pain Ascorbic Acid (Vitamin C) 500 mg PO DAILY [facility] Last Admin: 07/29/17 08:28 Dose: 500 mg Aspirin (Aspirin) 81 mg PO DAILY [facility] Last Admin: 07/29/17 08:29 Dose: 81 mg Carvedilol (Coreg) 6.25 mg PO BID [facility] Last Admin: 07/29/17 08:29 Dose: 6.25 mg Diltiazem HCl (Cardizem Cd) 120 mg PO DAILY [facility] Last Admin: 07/29/17 08:28 Dose: 120 mg Docusate Sodium (Colace) 100 mg PO BID PRN PRN Reason: Constipation Donepezil HCl (Aricept) 5 mg PO BEDTIME [facility] Last Admin: 07/28/17 20:46 Dose: 5 mg Enoxaparin Sodium (Lovenox) 30 mg SUBCUT DAILY [facility] Last Admin: 07/29/17 08:27 Dose: 30 mg Furosemide (Lasix) 40 mg PO WITHLUNCH [facility] Last Admin: 07/29/17 10:09 Dose: 40 mg Furosemide (Lasix) 80 mg PO DAILY [facility] Last Admin: 07/29/17 08:28 Dose: 80 mg Glipizide (Glucotrol) 10 mg PO DAILY [facility] Last Admin: 07/29/17 08:28 Dose: 10 mg Ceftriaxone Sodium 1 gm/ (Sodium Chloride) 100 mls @ 200 mls/hr IV Q24H [facility] Last Admin: 07/29/17 11:13 Dose: Not Given Insulin Detemir (Levemir) 7 unit SUBCUT BID [facility] Last Admin: 07/29/17 08:27 Dose: 7 units Latanoprost (Xalatan 0.005% Ophth Soln) 0 ml EYEBOTH BEDTIME [facility] Last Admin: 07/28/17 20:50 Dose: 1 drop Losartan Potassium (Cozaar) 50 mg PO DAILY [facility] Last Admin: 07/29/17 08:28 Dose: 50 mg Magnesium Hydroxide (Milk Of Magnesia) 30 ml PO Q12H PRN PRN Reason: Constipation Multivitamins (Thera) 1 each PO DAILY [facility] Last Admin: 07/29/17 08:28 Dose: 1 each Ondansetron HCl (Zofran Odt) 4 mg PO Q6H PRN PRN Reason: nausea, able to take PO Ondansetron HCl (Zofran) 4 mg IV Q6H PRN PRN Reason: Nausea/Vomiting Pantoprazole Sodium (Protonix) 40 mg PO DAILY@0700 [facility] Last Admin: 07/29/17 06:25 Dose: 40 mg Polyethylene Glycol (Miralax) 17 gm PO DAILY PRN PRN Reason: Constipation Polysaccharide Iron Complex (Ferrex 150) 150 mg PO DAILY [facility] Last Admin: 07/29/17 08:28 Dose: 150 mg Saccharomyces Boulardii (Florastor) 250 mg PO BID [facility] Last Admin: 07/29/17 08:29 Dose: 250 mg Simvastatin (Zocor) 20 mg PO BEDTIME [facility] Last Admin: 07/28/17 20:50 Dose: 20 mg Temazepam (Restoril) 7.5 mg PO BEDTIME PRN PRN Reason: Sleep Vit A/Vit C/Vit E/Selen/Cu/Zn/Lutei (Icaps Mv) 1 tab PO DAILY [facility] Last Admin: 07/29/17 08:28 Dose: 1 tab Discontinued Medications Hydrocodone Bitart/Acetaminophen ([place] 325-5 Mg) 1 tab PO Q4H PRN PRN Reason: Pain (moderate 4-6) Hydrocodone Bitart/Acetaminophen ([place] 325-5 Mg) 2 tab PO Q4H PRN PRN Reason: Pain (moderate 4-6) Denosumab (Prolia) 60 mg SUBCUT ASDIRECTED [facility] Sodium Chloride (Normal Saline) 1,000 mls @ 150 mls/hr IV ASDIRECTED [facility] Last Admin: 07/24/17 09:42 Dose: 150 mls/hr Ceftriaxone Sodium 1 gm/ (Sodium Chloride) 100 mls @ 200 mls/hr IV ONETIME ONE Stop: 07/24/17 12:37 Last Admin: 07/24/17 12:45 Dose: 200 mls/hr Sodium Chloride (Normal Saline) 1,000 mls @ 125 mls/hr IV ASDIRECTED [facility] Vancomycin HCl 1 gm/ Sodium (Chloride) 250 mls @ 250 mls/hr IV Q24H [facility] Last Admin: 07/26/17 21:21 Dose: 250 mls/hr Ibuprofen (Motrin) 600 mg PO ONETIME ONE Stop: 07/24/17 09:17 Last Admin: 07/24/17 09:41 Dose: 600 mg Influenza Virus Vaccine (Pharmacy To Dose - Influenza Vaccine) 1 each IM ONETIME ONE Stop: 07/24/17 14:53 Influenza Virus Vaccine (Fluzone High-Dose 2016-18) 180 mcg IM .ONCE ONE Stop: 07/24/17 15:01 Influenza Virus Vaccine (Pharmacy To Dose - Influenza Vaccine) 0 each IM ONETIME ONE Stop: 07/27/17 13:43 Morphine Sulfate (Morphine) 2 mg IVPUSH Q2H PRN PRN Reason: Pain (severe 7-10) Stop: 07/25/17 17:49 Vancomycin HCl (Pharmacy To Dose - Vancomycin) 1 dose .XX ASDIRECTED PRN PRN Reason: RX to Dose - Exam Quality Assessment: DVT Prophylaxis General: Alert, Oriented, Cooperative, No Acute Distress HEENT: Pupils Equal, Pupils Reactive, EOMI Neck: Supple, Trachea Midline Lungs: Clear to Auscultation, Normal Respiratory Effort Cardiovascular: Regular Rate GI/Abdominal Exam: Normal Bowel Sounds, Soft, Non-Tender, No Organomegaly (Female) Exam: Deferred Back Exam: Normal Inspection Extremities: Normal Inspection Peripheral Pulses: 2+: Radial (L), Radial (R) Skin: Warm, Dry Neurological: No New Focal Deficit, Normal Speech Psy/Mental Status: Alert, Normal Affect, Normal Mood - Problem List Review Problem List Initiated/Reviewed/Updated: Yes - Assessment Assessment:: 1. Sepsis due to Streptococcus bovis. 2. Urinary tract infection due to Escherichia coli. 3. Alzheimer's dementia. 4. Elevated transaminases. - Plan Plan:: 1. Will discontinue IV vancomycin and Rocephin today, ). 2. Start Levoquin 500 mg IV daily today. Probable 5 additional days of IV antibiotic therapy based on the results of complete echocardiogram; repeat BC is negative. 3. Follow results of complete echocardiogram. 4. Patient will follow up with her primary care physician for colonoscopy as outpatient if needed. CODE STATUS: DNR/DNI. LOS>96 hours with current treatment required.
[2017-07-29] MEDS ORDERED: Levofloxacin/Dextrose 5%-Water 500 MG in Premix Bag 1 BAG IV SCH (15:00)
[2017-07-29] MEDS: Donepezil 10 MG Tab PO SCH (21:59)
[2017-07-29] MEDS: Latanoprost 0.005% Ophth Soln 2.5 ML Bottle EYEBOTH SCH (22:01)
[2017-07-29] MEDS: Simvastatin 20 MG Tab PO SCH (22:01)
[2017-07-30] MEDS: Pantoprazole 40 MG Tab.CR PO SCH (06:33)
[2017-07-30] MEDS: Insulin Detemir 100 Units/ML 3 ML Pen SUBCUT SCH ×2 (10:24→20:32)
[2017-07-30] MEDS: Multivitamins with Minerals/Folic Acid/Lutein/Zeaxanth Tab PO SCH (10:25)
[2017-07-30] MEDS: Diltiazem 120 MG Cap.CD PO SCH (10:25)
[2017-07-30] MEDS: Ascorbic Acid 500 MG Tab PO SCH (10:25)
[2017-07-30] MEDS: Carvedilol 6.25 MG Tab PO SCH ×2 (10:29→20:28)
[2017-07-30] MEDS: Iron Polysaccharides Complex 150 MG Cap PO SCH (10:29)
[2017-07-30] MEDS: Losartan 25 MG Tab PO SCH (10:29)
[2017-07-30] MEDS: Saccharomyces Boulardii (Probiotic) 250 MG Cap PO SCH ×2 (10:31→20:32)
[2017-07-30] MEDS: Furosemide 80 MG Tab PO SCH (10:31)
[2017-07-30] MEDS: Multivitamins,Therapeutic Tab PO SCH (10:31)
[2017-07-30] MEDS: Enoxaparin 30 MG/0.3 ML Syringe SUBCUT SCH (10:31)
[2017-07-30] MEDS: Aspirin 81 MG Tab.Chew PO SCH (10:31)
--- NOTE | 2017-07-30 12:24 | PCM.PN ---
- General Info Date of Service: 07/30/17 Functional Status: Reports: Tolerating Diet - Review of Systems General: Reports: No Symptoms HEENT: Reports: No Symptoms Pulmonary: Reports: No Symptoms Cardiovascular: Reports: No Symptoms Gastrointestinal: Reports: No Symptoms Genitourinary: Reports: No Symptoms Musculoskeletal: Reports: No Symptoms Skin: Reports: No Symptoms Neurological: Reports: No Symptoms Psychiatric: Reports: No Symptoms - Patient Data Vitals - Most Recent: Last Vital Signs Temp 36.7 C 07/30/17 12:03 Pulse 78 07/30/17 12:03 Resp 18 07/30/17 12:03 BP 97/62 07/30/17 12:03 Pulse Ox 94 L 07/30/17 12:03 Weight - Most Recent: 70.261 kg I&O - Last 24 Hours: Intake & Output 07/29/17 07/30/17 07/30/17 22:59 06:59 14:59 Intake Total 880 300 90 Output Total 450 800 Balance 430 -500 90 Lab Results Last 24 Hours: Laboratory Results - last 24 hr 07/29/17 07/30/17 07/30/17 Range/Units 20:46 06:09 11:00 WBC 9.68 (3.98-10.04) K/mm3 RBC 4.40 (3.98-5.22) M/mm3 Hgb 13.3 (11.2-15.7) gm/L Hct 41.6 (34.1-44.9) % MCV 94.5 (79.4-94.8) fl MCH 30.2 (25.6-32.2) pg MCHC 32.0 L (32.2-35.5) g/dl RDW Std Deviation 47.2 H (36.4-46.3) fL Plt Count 217 (182-369) K/mm3 MPV 10.3 (9.4-12.3) fl Neut % (Auto) 74.6 H (34.0-71.1) % Lymph % (Auto) 15.1 L (19.3-51.7) % Coleman % (Auto) 7.7 (4.7-12.5) % Eos % (Auto) 2.2 (0.7-5.8) Baso % (Auto) 0.2 (0.1-1.2) % Neut # (Auto) 7.22 H (1.56-6.13) K/mm3 Lymph # (Auto) 1.46 (1.18-3.74) K/mm3 Coleman # (Auto) 0.75 H (0.24-0.36) K/mm3 Eos # (Auto) 0.21 (0.04-0.36) K/mm3 Baso # (Auto) 0.02 (0.01-0.08) K/mm3 Sodium (136-145) mEq/L Potassium (3.5-5.1) mEq/L Chloride (98-107) mEq/L Carbon Dioxide (21-32) mEq/L Anion Gap (5-15) BUN (7-18) mg/dL Creatinine (0.55-1.02) mg/dL Est Cr Clr Drug Dosing mL/min Estimated GFR (MDRD) (>60) mL/min BUN/Creatinine Ratio (14-18) Glucose (83-115) mg/dL POC Glucose 116 H 109 (83-110) mg/dL Calcium (8.5-10.1) mg/dL Total Bilirubin (0.2-1.0) mg/dL AST (15-37) U/L ALT (14-59) U/L Alkaline Phosphatase (46-116) U/L C-Reactive Protein (<1.0) mg/dL Total Protein (6.4-8.2) g/dl Albumin (3.4-5.0) g/dl Globulin gm/dL Albumin/Globulin Ratio (1-2) 07/30/17 07/30/17 Range/Units 11:00 11:49 WBC (3.98-10.04) K/mm3 RBC (3.98-5.22) M/mm3 Hgb (11.2-15.7) gm/L Hct (34.1-44.9) % MCV (79.4-94.8) fl MCH (25.6-32.2) pg MCHC (32.2-35.5) g/dl RDW Std Deviation (36.4-46.3) fL Plt Count (182-369) K/mm3 MPV (9.4-12.3) fl Neut % (Auto) (34.0-71.1) % Lymph % (Auto) (19.3-51.7) % Coleman % (Auto) (4.7-12.5) % Eos % (Auto) (0.7-5.8) Baso % (Auto) (0.1-1.2) % Neut # (Auto) (1.56-6.13) K/mm3 Lymph # (Auto) (1.18-3.74) K/mm3 Coleman # (Auto) (0.24-0.36) K/mm3 Eos # (Auto) (0.04-0.36) K/mm3 Baso # (Auto) (0.01-0.08) K/mm3 Sodium 140 (136-145) mEq/L Potassium 4.1 (3.5-5.1) mEq/L Chloride 104 (98-107) mEq/L Carbon Dioxide 25 (21-32) mEq/L Anion Gap 15.1 H (5-15) BUN 34 H (7-18) mg/dL Creatinine 1.4 H (0.55-1.02) mg/dL Est Cr Clr Drug Dosing 19.57 mL/min Estimated GFR (MDRD) 35 (>60) mL/min BUN/Creatinine Ratio 24.3 H (14-18) Glucose 149 H (83-115) mg/dL POC Glucose 126 H (83-110) mg/dL Calcium 9.6 (8.5-10.1) mg/dL Total Bilirubin 0.4 (0.2-1.0) mg/dL AST 100 H (15-37) U/L ALT 157 H (14-59) U/L Alkaline Phosphatase 192 H (46-116) U/L C-Reactive Protein 1.4 H* (<1.0) mg/dL Total Protein 7.6 (6.4-8.2) g/dl Albumin 3.1 L (3.4-5.0) g/dl Globulin 4.5 gm/dL Albumin/Globulin Ratio 0.7 L (1-2) Tommy Results Last 24 Hours: Microbiology 07/28/17 11:50 Aerobic Blood Culture - Preliminary Blood - Venous NO GROWTH AFTER 2 DAYS Anaerobic Blood Culture - Preliminary NO GROWTH AFTER 2 DAYS 07/28/17 12:30 Aerobic Blood Culture - Preliminary Blood - Venous - Lab Draw NO GROWTH AFTER 1 DAY Anaerobic Blood Culture - Preliminary NO GROWTH AFTER 1 DAY 07/28/17 03:15 Cryptosporidium/Giardia - Final Stool / Feces Med Orders - Current: Current Medications Acetaminophen (Tylenol) 650 mg PO Q4H PRN PRN Reason: Pain (Mild 1-3)/fever Hydrocodone Bitart/Acetaminophen (Railroad 325-5 Mg) 1 - 2 tab PO Q4H PRN PRN Reason: Pain Ascorbic Acid (Vitamin C) 500 mg PO DAILY [facility] Last Admin: 07/30/17 10:25 Dose: 500 mg Aspirin (Aspirin) 81 mg PO DAILY [facility] Last Admin: 07/30/17 10:31 Dose: 81 mg Carvedilol (Coreg) 6.25 mg PO BID [facility] Last Admin: 07/30/17 10:29 Dose: 6.25 mg Diltiazem HCl (Cardizem Cd) 120 mg PO DAILY [facility] Last Admin: 07/30/17 10:25 Dose: 120 mg Docusate Sodium (Colace) 100 mg PO BID PRN PRN Reason: Constipation Donepezil HCl (Aricept) 5 mg PO BEDTIME [facility] Last Admin: 07/29/17 21:59 Dose: 5 mg Enoxaparin Sodium (Lovenox) 30 mg SUBCUT DAILY [facility] Last Admin: 07/30/17 10:31 Dose: 30 mg Furosemide (Lasix) 40 mg PO WITHLUNCH [facility] Last Admin: 07/29/17 10:09 Dose: 40 mg Furosemide (Lasix) 80 mg PO DAILY [facility] Last Admin: 07/30/17 10:31 Dose: 80 mg Glipizide (Glucotrol) 10 mg PO DAILY [facility] Last Admin: 07/30/17 10:25 Dose: 10 mg Levofloxacin/Dextrose 250 mg/ (Premix) 50 mls @ 50 mls/hr IV Q24H [facility] Insulin Detemir (Levemir) 7 unit SUBCUT BID [facility] Last Admin: 07/30/17 10:24 Dose: 7 units Latanoprost (Xalatan 0.005% Ophth Soln) 0 ml EYEBOTH BEDTIME [facility] Last Admin: 07/29/17 22:01 Dose: 1 drop Losartan Potassium (Cozaar) 50 mg PO DAILY [facility] Last Admin: 07/30/17 10:29 Dose: 50 mg Magnesium Hydroxide (Milk Of Magnesia) 30 ml PO Q12H PRN PRN Reason: Constipation Multivitamins (Thera) 1 each PO DAILY [facility] Last Admin: 07/30/17 10:31 Dose: 1 each Ondansetron HCl (Zofran Odt) 4 mg PO Q6H PRN PRN Reason: nausea, able to take PO Ondansetron HCl (Zofran) 4 mg IV Q6H PRN PRN Reason: Nausea/Vomiting Pantoprazole Sodium (Protonix) 40 mg PO DAILY@0700 [facility] Last Admin: 07/30/17 06:33 Dose: 40 mg Polyethylene Glycol (Miralax) 17 gm PO DAILY PRN PRN Reason: Constipation Polysaccharide Iron Complex (Ferrex 150) 150 mg PO DAILY [facility] Last Admin: 07/30/17 10:29 Dose: 150 mg Saccharomyces Boulardii (Florastor) 250 mg PO BID [facility] Last Admin: 07/30/17 10:31 Dose: 250 mg Simvastatin (Zocor) 20 mg PO BEDTIME [facility] Last Admin: 07/29/17 22:01 Dose: 20 mg Temazepam (Restoril) 7.5 mg PO BEDTIME PRN PRN Reason: Sleep Vit A/Vit C/Vit E/Selen/Cu/Zn/Lutei (Icaps Mv) 1 tab PO DAILY [facility] Last Admin: 07/30/17 10:25 Dose: 1 tab Discontinued Medications Hydrocodone Bitart/Acetaminophen (Railroad 325-5 Mg) 1 tab PO Q4H PRN PRN Reason: Pain (moderate 4-6) Hydrocodone Bitart/Acetaminophen (Railroad 325-5 Mg) 2 tab PO Q4H PRN PRN Reason: Pain (moderate 4-6) Denosumab (Prolia) 60 mg SUBCUT ASDIRECTED [facility] Sodium Chloride (Normal Saline) 1,000 mls @ 150 mls/hr IV ASDIRECTED [facility] Last Admin: 07/24/17 09:42 Dose: 150 mls/hr Ceftriaxone Sodium 1 gm/ (Sodium Chloride) 100 mls @ 200 mls/hr IV ONETIME ONE Stop: 07/24/17 12:37 Last Admin: 07/24/17 12:45 Dose: 200 mls/hr Ceftriaxone Sodium 1 gm/ (Sodium Chloride) 100 mls @ 200 mls/hr IV Q24H [facility] Last Admin: 07/29/17 11:13 Dose: Not Given Sodium Chloride (Normal Saline) 1,000 mls @ 125 mls/hr IV ASDIRECTED [facility] Vancomycin HCl 1 gm/ Sodium (Chloride) 250 mls @ 250 mls/hr IV Q24H [facility] Last Admin: 07/26/17 21:21 Dose: 250 mls/hr Levofloxacin/Dextrose 500 mg/ (Premix) 100 mls @ 100 mls/hr IV Q24H [facility] Last Admin: 07/29/17 16:46 Dose: 100 mls/hr Ibuprofen (Motrin) 600 mg PO ONETIME ONE Stop: 07/24/17 09:17 Last Admin: 07/24/17 09:41 Dose: 600 mg Influenza Virus Vaccine (Pharmacy To Dose - Influenza Vaccine) 1 each IM ONETIME ONE Stop: 07/24/17 14:53 Influenza Virus Vaccine (Fluzone High-Dose 2017-18) 180 mcg IM .ONCE ONE Stop: 07/24/17 15:01 Influenza Virus Vaccine (Pharmacy To Dose - Influenza Vaccine) 0 each IM ONETIME ONE Stop: 07/27/17 13:43 Morphine Sulfate (Morphine) 2 mg IVPUSH Q2H PRN PRN Reason: Pain (severe 7-10) Stop: 07/25/17 17:49 Vancomycin HCl (Pharmacy To Dose - Vancomycin) 1 dose .XX ASDIRECTED PRN PRN Reason: RX to Dose - Exam Quality Assessment: DVT Prophylaxis General: Alert, Oriented, Cooperative, No Acute Distress HEENT: Pupils Equal, Pupils Reactive, EOMI Neck: Supple, Trachea Midline Lungs: Normal Respiratory Effort Cardiovascular: Regular Rate GI/Abdominal Exam: Normal Bowel Sounds, Soft, Non-Tender, No Organomegaly, No Distention (Female) Exam: Deferred Back Exam: Normal Inspection Extremities: Normal Inspection Peripheral Pulses: 2+: Radial (L), Radial (R) Skin: Warm Neurological: No New Focal Deficit Psy/Mental Status: Alert, Normal Affect, Normal Mood - Problem List Review Problem List Initiated/Reviewed/Updated: Yes - My Orders Last 24 Hours: My Active Orders 07/30/17 16:30 Levofloxacin/Dextrose 5%-Water [Levaquin in D5W 250 MG/50 ML] 250 mg Premix Bag 1 bag IV Q24H - Assessment Assessment:: 1. Sepsis due to Streptococcus bovis; repeat BC negative. 2. Urinary tract infection due to Escherichia coli. 3. Alzheimer's dementia. 4. Elevated transaminases. - Plan Plan:: 1. Will discontinue IV vancomycin and Rocephin today, . 2. Start Levoquin 500 mg IV daily today. 2 D echocardiogram-->unremarkable; repeat BC is negative. 3. Patient will follow up with her primary care physician for colonoscopy as outpatient if needed. 4. IN 08/03/17 CODE STATUS: DNR/DNI. LOS>96 hours with current treatment required.
[2017-07-30] MEDS: Furosemide 40 MG Tab PO SCH (13:18)
[2017-07-30] MEDS: Levofloxacin/Dextrose 5%-Water 250 MG in Premix Bag 1 BAG IV SCH (15:53)
[2017-07-30] MEDS: Donepezil 10 MG Tab PO SCH (20:29)
[2017-07-30] MEDS: Simvastatin 20 MG Tab PO SCH (20:29)
[2017-07-30] MEDS: Latanoprost 0.005% Ophth Soln 2.5 ML Bottle EYEBOTH SCH (20:34)
[2017-07-31] MEDS: Pantoprazole 40 MG Tab.CR PO SCH (06:15)
[2017-07-31] MEDS ORDERED: Sodium Chloride 0.45% 1,000 ML IV SCH (08:00)
[2017-07-31] MEDS: Ascorbic Acid 500 MG Tab PO SCH (08:27)
[2017-07-31] MEDS: Saccharomyces Boulardii (Probiotic) 250 MG Cap PO SCH ×2 (08:27→20:47)
[2017-07-31] MEDS: Aspirin 81 MG Tab.Chew PO SCH (08:27)
[2017-07-31] MEDS: Multivitamins with Minerals/Folic Acid/Lutein/Zeaxanth Tab PO SCH (08:27)
[2017-07-31] MEDS: Iron Polysaccharides Complex 150 MG Cap PO SCH (08:27)
[2017-07-31] MEDS: Diltiazem 120 MG Cap.CD PO SCH (08:27)
[2017-07-31] MEDS: Carvedilol 6.25 MG Tab PO SCH ×2 (08:27→20:46)
[2017-07-31] MEDS: Multivitamins,Therapeutic Tab PO SCH (08:27)
[2017-07-31] MEDS: Enoxaparin 30 MG/0.3 ML Syringe SUBCUT SCH (08:28)
[2017-07-31] MEDS: Losartan 25 MG Tab PO SCH (08:28)
[2017-07-31] MEDS: Insulin Detemir 100 Units/ML 3 ML Pen SUBCUT SCH ×2 (08:32→20:47)
[2017-07-31] MEDS: Furosemide 40 MG Tab PO SCH (13:20)
--- NOTE | 2017-07-31 14:18 | PCM.PN ---
- General Info Date of Service: 07/31/17 Functional Status: Reports: Tolerating Diet, Urinating - Review of Systems General: Reports: No Symptoms HEENT: Reports: No Symptoms Pulmonary: Reports: No Symptoms Cardiovascular: Reports: No Symptoms Gastrointestinal: Reports: No Symptoms Genitourinary: Reports: No Symptoms Musculoskeletal: Reports: No Symptoms Skin: Reports: No Symptoms Neurological: Reports: No Symptoms Psychiatric: Reports: No Symptoms - Patient Data Vitals - Most Recent: Last Vital Signs Temp 36.3 C 07/31/17 13:22 Pulse 66 07/31/17 11:37 Resp 16 07/31/17 13:22 BP 110/55 L 07/31/17 11:37 Pulse Ox 93 L 07/31/17 11:37 Weight - Most Recent: 69.445 kg I&O - Last 24 Hours: Intake & Output 07/30/17 07/31/17 07/31/17 22:59 06:59 14:59 Intake Total 1030 425 380 Output Total 201 250 Balance 829 175 380 Lab Results Last 24 Hours: Laboratory Results - last 24 hr 07/30/17 07/31/17 Range/Units 20:27 08:32 POC Glucose 122 H 113 H (83-110) mg/dL Tommy Results Last 24 Hours: Microbiology 07/28/17 12:30 Aerobic Blood Culture - Preliminary Blood - Venous - Lab Draw NO GROWTH AFTER 3 DAYS Anaerobic Blood Culture - Preliminary NO GROWTH AFTER 3 DAYS 07/28/17 11:50 Aerobic Blood Culture - Preliminary Blood - Venous NO GROWTH AFTER 3 DAYS Anaerobic Blood Culture - Preliminary NO GROWTH AFTER 3 DAYS Med Orders - Current: Current Medications Acetaminophen (Tylenol) 650 mg PO Q4H PRN PRN Reason: Pain (Mild 1-3)/fever Hydrocodone Bitart/Acetaminophen (Archer 325-5 Mg) 1 - 2 tab PO Q4H PRN PRN Reason: Pain Ascorbic Acid (Vitamin C) 500 mg PO DAILY [facility] Last Admin: 07/31/17 08:27 Dose: 500 mg Aspirin (Aspirin) 81 mg PO DAILY [facility] Last Admin: 07/31/17 08:27 Dose: 81 mg Carvedilol (Coreg) 6.25 mg PO BID [facility] Last Admin: 07/31/17 08:27 Dose: 6.25 mg Diltiazem HCl (Cardizem Cd) 120 mg PO DAILY [facility] Last Admin: 07/31/17 08:27 Dose: 120 mg Docusate Sodium (Colace) 100 mg PO BID PRN PRN Reason: Constipation Donepezil HCl (Aricept) 5 mg PO BEDTIME [facility] Last Admin: 07/30/17 20:29 Dose: 5 mg Enoxaparin Sodium (Lovenox) 30 mg SUBCUT DAILY [facility] Last Admin: 07/31/17 08:28 Dose: 30 mg Furosemide (Lasix) 40 mg PO WITHLUNCH [facility] Last Admin: 07/31/17 13:20 Dose: 40 mg Furosemide (Lasix) 80 mg PO DAILY [facility] Last Admin: 07/30/17 10:31 Dose: 80 mg Glipizide (Glucotrol) 10 mg PO DAILY [facility] Last Admin: 07/31/17 08:27 Dose: 10 mg Levofloxacin/Dextrose 250 mg/ (Premix) 50 mls @ 50 mls/hr IV Q24H [facility] Last Admin: 07/30/17 15:53 Dose: 50 mls/hr Sodium Chloride (Sodium Chloride 0.45%) 1,000 mls @ 50 mls/hr IV ASDIRECTED [facility] Stop: 07/31/17 16:00 Last Admin: 07/31/17 09:47 Dose: 50 mls/hr Insulin Detemir (Levemir) 7 unit SUBCUT BID [facility] Last Admin: 07/31/17 08:32 Dose: 7 units Latanoprost (Xalatan 0.005% Ophth Soln) 0 ml EYEBOTH BEDTIME [facility] Last Admin: 07/30/17 20:34 Dose: 1 drop Losartan Potassium (Cozaar) 50 mg PO DAILY [facility] Last Admin: 07/31/17 08:28 Dose: 50 mg Magnesium Hydroxide (Milk Of Magnesia) 30 ml PO Q12H PRN PRN Reason: Constipation Multivitamins (Thera) 1 each PO DAILY [facility] Last Admin: 07/31/17 08:27 Dose: 1 each Ondansetron HCl (Zofran Odt) 4 mg PO Q6H PRN PRN Reason: nausea, able to take PO Ondansetron HCl (Zofran) 4 mg IV Q6H PRN PRN Reason: Nausea/Vomiting Pantoprazole Sodium (Protonix) 40 mg PO DAILY@0700 [facility] Last Admin: 07/31/17 06:15 Dose: 40 mg Polyethylene Glycol (Miralax) 17 gm PO DAILY PRN PRN Reason: Constipation Polysaccharide Iron Complex (Ferrex 150) 150 mg PO DAILY [facility] Last Admin: 07/31/17 08:27 Dose: 150 mg Saccharomyces Boulardii (Florastor) 250 mg PO BID [facility] Last Admin: 07/31/17 08:27 Dose: 250 mg Simvastatin (Zocor) 20 mg PO BEDTIME [facility] Last Admin: 07/30/17 20:29 Dose: 20 mg Temazepam (Restoril) 7.5 mg PO BEDTIME PRN PRN Reason: Sleep Vit A/Vit C/Vit E/Selen/Cu/Zn/Lutei (Icaps Mv) 1 tab PO DAILY [facility] Last Admin: 07/31/17 08:27 Dose: 1 tab Discontinued Medications Hydrocodone Bitart/Acetaminophen (Archer 325-5 Mg) 1 tab PO Q4H PRN PRN Reason: Pain (moderate 4-6) Hydrocodone Bitart/Acetaminophen (Archer 325-5 Mg) 2 tab PO Q4H PRN PRN Reason: Pain (moderate 4-6) Denosumab (Prolia) 60 mg SUBCUT ASDIRECTED [facility] Sodium Chloride (Normal Saline) 1,000 mls @ 150 mls/hr IV ASDIRECTED [facility] Last Admin: 07/24/17 09:42 Dose: 150 mls/hr Ceftriaxone Sodium 1 gm/ (Sodium Chloride) 100 mls @ 200 mls/hr IV ONETIME ONE Stop: 07/24/17 12:37 Last Admin: 07/24/17 12:45 Dose: 200 mls/hr Ceftriaxone Sodium 1 gm/ (Sodium Chloride) 100 mls @ 200 mls/hr IV Q24H [facility] Last Admin: 07/29/17 11:13 Dose: Not Given Sodium Chloride (Normal Saline) 1,000 mls @ 125 mls/hr IV ASDIRECTED [facility] Vancomycin HCl 1 gm/ Sodium (Chloride) 250 mls @ 250 mls/hr IV Q24H [facility] Last Admin: 07/26/17 21:21 Dose: 250 mls/hr Levofloxacin/Dextrose 500 mg/ (Premix) 100 mls @ 100 mls/hr IV Q24H [facility] Last Admin: 07/29/17 16:46 Dose: 100 mls/hr Ibuprofen (Motrin) 600 mg PO ONETIME ONE Stop: 07/24/17 09:17 Last Admin: 07/24/17 09:41 Dose: 600 mg Influenza Virus Vaccine (Pharmacy To Dose - Influenza Vaccine) 1 each IM ONETIME ONE Stop: 07/24/17 14:53 Influenza Virus Vaccine (Fluzone High-Dose 2017-) 180 mcg IM .ONCE ONE Stop: 07/24/17 15:01 Influenza Virus Vaccine (Pharmacy To Dose - Influenza Vaccine) 0 each IM ONETIME ONE Stop: 07/27/17 13:43 Morphine Sulfate (Morphine) 2 mg IVPUSH Q2H PRN PRN Reason: Pain (severe 7-10) Stop: 07/25/17 17:49 Vancomycin HCl (Pharmacy To Dose - Vancomycin) 1 dose .XX ASDIRECTED PRN PRN Reason: RX to Dose - Exam Quality Assessment: DVT Prophylaxis General: Alert, Oriented, Cooperative, No Acute Distress HEENT: Pupils Equal, Pupils Reactive Neck: Supple, Trachea Midline Lungs: Normal Respiratory Effort Cardiovascular: Regular Rate, Regular Rhythm GI/Abdominal Exam: Normal Bowel Sounds, Soft, Non-Tender, No Organomegaly, No Distention (Female) Exam: Deferred Back Exam: Normal Inspection Extremities: Normal Inspection Skin: Warm Neurological: No New Focal Deficit Psy/Mental Status: Alert, Normal Affect, Normal Mood - Problem List Review Problem List Initiated/Reviewed/Updated: Yes - My Orders Last 24 Hours: My Active Orders 07/30/17 16:30 Levofloxacin/Dextrose 5%-Water [Levaquin in D5W 250 MG/50 ML] 250 mg Premix Bag 1 bag IV Q24H 07/31/17 08:00 Sodium Chloride 0.45% 1,000 ml IV ASDIRECTED 08/01/17 05:00 BMP [BASIC METABOLIC PANEL,BMP] [CHEM] Routine CBC WITH AUTO DIFF [HEME] Routine CRP [C-REACTIVE PROTEIN] [CHEM] Routine - Assessment Assessment:: 1. Sepsis due to Streptococcus bovis; repeat BC negative. 2. Urinary tract infection due to Escherichia coli. 3. Alzheimer's dementia. 4. Elevated transaminases-->pending. - Plan Plan:: 1. Start Levoquin 500 mg IV daily today. 2 D echocardiogram-->unremarkable; repeat BC is negative. 2. Patient will follow up with her primary care physician for colonoscopy as outpatient if needed. 3. DC 08/03/17 CODE STATUS: DNR/DNI. LOS>96 hours with current treatment required.
[2017-07-31] MEDS: Levofloxacin/Dextrose 5%-Water 250 MG in Premix Bag 1 BAG IV SCH (17:56)
[2017-07-31] MEDS: Donepezil 10 MG Tab PO SCH (20:46)
[2017-07-31] MEDS: Latanoprost 0.005% Ophth Soln 2.5 ML Bottle EYEBOTH SCH (20:48)
[2017-07-31] MEDS: Simvastatin 20 MG Tab PO SCH (20:48)
[2017-08-01] MEDS: Pantoprazole 40 MG Tab.CR PO SCH (06:46)
[2017-08-01] MEDS: Iron Polysaccharides Complex 150 MG Cap PO SCH (08:29)
[2017-08-01] MEDS: Enoxaparin 30 MG/0.3 ML Syringe SUBCUT SCH (08:29)
[2017-08-01] MEDS: Multivitamins,Therapeutic Tab PO SCH (08:29)
[2017-08-01] MEDS: Multivitamins with Minerals/Folic Acid/Lutein/Zeaxanth Tab PO SCH (08:29)
[2017-08-01] MEDS: Saccharomyces Boulardii (Probiotic) 250 MG Cap PO SCH ×2 (08:29→20:48)
[2017-08-01] MEDS: Aspirin 81 MG Tab.Chew PO SCH (08:30)
[2017-08-01] MEDS: Ascorbic Acid 500 MG Tab PO SCH (08:30)
[2017-08-01] MEDS: Losartan 25 MG Tab PO SCH (08:32)
[2017-08-01] MEDS: Insulin Detemir 100 Units/ML 3 ML Pen SUBCUT SCH ×2 (09:01→20:46)
[2017-08-01] MEDS: Carvedilol 6.25 MG Tab PO SCH ×2 (09:59→20:47)
[2017-08-01] MEDS: Diltiazem 120 MG Cap.CD PO SCH (09:59)
--- NOTE | 2017-08-01 12:42 | PCM.PN ---
- General Info Date of Service: 08/01/17 Functional Status: Reports: Tolerating Diet - Review of Systems General: Reports: No Symptoms HEENT: Reports: No Symptoms Pulmonary: Reports: No Symptoms Cardiovascular: Reports: No Symptoms Gastrointestinal: Reports: No Symptoms Genitourinary: Reports: No Symptoms Musculoskeletal: Reports: No Symptoms Skin: Reports: No Symptoms Neurological: Reports: No Symptoms Psychiatric: Reports: No Symptoms - Patient Data Vitals - Most Recent: Last Vital Signs Temp 36.6 C 08/01/17 11:58 Pulse 54 L 08/01/17 11:58 Resp 14 08/01/17 11:58 BP 119/52 L 08/01/17 11:58 Pulse Ox 96 08/01/17 11:58 Weight - Most Recent: 69.581 kg I&O - Last 24 Hours: Intake & Output 07/31/17 08/01/17 08/01/17 22:59 06:59 14:59 Intake Total 1190 375 0 Output Total 200 400 Balance 990 -25 0 Lab Results Last 24 Hours: Laboratory Results - last 24 hr 07/31/17 08/01/17 08/01/17 Range/Units 20:44 05:55 05:55 WBC 7.83 (3.98-10.04) K/mm3 RBC 3.96 L (3.98-5.22) M/mm3 Hgb 12.0 (11.2-15.7) gm/L Hct 37.3 (34.1-44.9) % MCV 94.2 (79.4-94.8) fl MCH 30.3 (25.6-32.2) pg MCHC 32.2 (32.2-35.5) g/dl RDW Std Deviation 47.7 H (36.4-46.3) fL Plt Count 208 (182-369) K/mm3 MPV 10.5 (9.4-12.3) fl Neut % (Auto) 67.1 (34.0-71.1) % Lymph % (Auto) 20.4 (19.3-51.7) % [place] % (Auto) 8.7 (4.7-12.5) % Eos % (Auto) 3.2 (0.7-5.8) Baso % (Auto) 0.3 (0.1-1.2) % Neut # (Auto) 5.26 (1.56-6.13) K/mm3 Lymph # (Auto) 1.60 (1.18-3.74) K/mm3 [place] # (Auto) 0.68 H (0.24-0.36) K/mm3 Eos # (Auto) 0.25 (0.04-0.36) K/mm3 Baso # (Auto) 0.02 (0.01-0.08) K/mm3 Sodium 144 (136-145) mEq/L Potassium 3.7 (3.5-5.1) mEq/L Chloride 106 (98-107) mEq/L Carbon Dioxide 26 (21-32) mEq/L Anion Gap 15.7 H (5-15) BUN 40 H (7-18) mg/dL Creatinine 1.5 H (0.55-1.02) mg/dL Est Cr Clr Drug Dosing 18.26 mL/min Estimated GFR (MDRD) 33 (>60) mL/min BUN/Creatinine Ratio 26.7 H (14-18) Glucose 114 (83-115) mg/dL POC Glucose 110 (83-110) mg/dL Calcium 9.0 (8.5-10.1) mg/dL C-Reactive Protein 1.3 H* (<1.0) mg/dL 08/01/17 Range/Units 06:44 WBC (3.98-10.04) K/mm3 RBC (3.98-5.22) M/mm3 Hgb (11.2-15.7) gm/L Hct (34.1-44.9) % MCV (79.4-94.8) fl MCH (25.6-32.2) pg MCHC (32.2-35.5) g/dl RDW Std Deviation (36.4-46.3) fL Plt Count (182-369) K/mm3 MPV (9.4-12.3) fl Neut % (Auto) (34.0-71.1) % Lymph % (Auto) (19.3-51.7) % [place] % (Auto) (4.7-12.5) % Eos % (Auto) (0.7-5.8) Baso % (Auto) (0.1-1.2) % Neut # (Auto) (1.56-6.13) K/mm3 Lymph # (Auto) (1.18-3.74) K/mm3 [place] # (Auto) (0.24-0.36) K/mm3 Eos # (Auto) (0.04-0.36) K/mm3 Baso # (Auto) (0.01-0.08) K/mm3 Sodium (136-145) mEq/L Potassium (3.5-5.1) mEq/L Chloride (98-107) mEq/L Carbon Dioxide (21-32) mEq/L Anion Gap (5-15) BUN (7-18) mg/dL Creatinine (0.55-1.02) mg/dL Est Cr Clr Drug Dosing mL/min Estimated GFR (MDRD) (>60) mL/min BUN/Creatinine Ratio (14-18) Glucose (83-115) mg/dL POC Glucose 106 (83-110) mg/dL Calcium (8.5-10.1) mg/dL C-Reactive Protein (<1.0) mg/dL Tommy Results Last 24 Hours: Microbiology 07/28/17 11:50 Aerobic Blood Culture - Preliminary Blood - Venous NO GROWTH AFTER 4 DAYS Anaerobic Blood Culture - Preliminary NO GROWTH AFTER 4 DAYS 07/28/17 12:30 Aerobic Blood Culture - Preliminary Blood - Venous - Lab Draw NO GROWTH AFTER 3 DAYS Anaerobic Blood Culture - Preliminary NO GROWTH AFTER 3 DAYS Med Orders - Current: Current Medications Acetaminophen (Tylenol) 650 mg PO Q4H PRN PRN Reason: Pain (Mild 1-3)/fever Hydrocodone Bitart/Acetaminophen ([place] 325-5 Mg) 1 - 2 tab PO Q4H PRN PRN Reason: Pain Ascorbic Acid (Vitamin C) 500 mg PO DAILY [facility] Last Admin: 08/01/17 08:30 Dose: 500 mg Aspirin (Aspirin) 81 mg PO DAILY [facility] Last Admin: 08/01/17 08:30 Dose: 81 mg Carvedilol (Coreg) 6.25 mg PO BID [facility] Last Admin: 08/01/17 09:59 Dose: Not Given Diltiazem HCl (Cardizem Cd) 120 mg PO DAILY [facility] Last Admin: 08/01/17 09:59 Dose: Not Given Docusate Sodium (Colace) 100 mg PO BID PRN PRN Reason: Constipation Donepezil HCl (Aricept) 5 mg PO BEDTIME [facility] Last Admin: 07/31/17 20:46 Dose: 5 mg Enoxaparin Sodium (Lovenox) 30 mg SUBCUT DAILY [facility] Last Admin: 08/01/17 08:29 Dose: 30 mg Furosemide (Lasix) 80 mg PO DAILY [facility] Last Admin: 07/30/17 10:31 Dose: 80 mg Glipizide (Glucotrol) 10 mg PO DAILY [facility] Last Admin: 08/01/17 08:30 Dose: 10 mg Levofloxacin/Dextrose 250 mg/ (Premix) 50 mls @ 50 mls/hr IV Q24H [facility] Last Admin: 07/31/17 17:56 Dose: 50 mls/hr Sodium Chloride (Sodium Chloride 0.45%) 1,000 mls @ 75 mls/hr IV ASDIRECTED [facility] Insulin Detemir (Levemir) 7 unit SUBCUT BID [facility] Last Admin: 08/01/17 09:01 Dose: 7 units Latanoprost (Xalatan 0.005% Ophth Soln) 0 ml EYEBOTH BEDTIME [facility] Last Admin: 07/31/17 20:48 Dose: 1 drop Losartan Potassium (Cozaar) 50 mg PO DAILY [facility] Last Admin: 08/01/17 08:32 Dose: 50 mg Magnesium Hydroxide (Milk Of Magnesia) 30 ml PO Q12H PRN PRN Reason: Constipation Multivitamins (Thera) 1 each PO DAILY [facility] Last Admin: 08/01/17 08:29 Dose: 1 each Ondansetron HCl (Zofran Odt) 4 mg PO Q6H PRN PRN Reason: nausea, able to take PO Ondansetron HCl (Zofran) 4 mg IV Q6H PRN PRN Reason: Nausea/Vomiting Pantoprazole Sodium (Protonix) 40 mg PO DAILY@0700 [facility] Last Admin: 08/01/17 06:46 Dose: 40 mg Polyethylene Glycol (Miralax) 17 gm PO DAILY PRN PRN Reason: Constipation Polysaccharide Iron Complex (Ferrex 150) 150 mg PO DAILY [facility] Last Admin: 08/01/17 08:29 Dose: 150 mg Saccharomyces Boulardii (Florastor) 250 mg PO BID [facility] Last Admin: 08/01/17 08:29 Dose: 250 mg Simvastatin (Zocor) 20 mg PO BEDTIME [facility] Last Admin: 07/31/17 20:48 Dose: 20 mg Temazepam (Restoril) 7.5 mg PO BEDTIME PRN PRN Reason: Sleep Vit A/Vit C/Vit E/Selen/Cu/Zn/Lutei (Icaps Mv) 1 tab PO DAILY [facility] Last Admin: 08/01/17 08:29 Dose: 1 tab Discontinued Medications Hydrocodone Bitart/Acetaminophen ([place] 325-5 Mg) 1 tab PO Q4H PRN PRN Reason: Pain (moderate 4-6) Hydrocodone Bitart/Acetaminophen ([place] 325-5 Mg) 2 tab PO Q4H PRN PRN Reason: Pain (moderate 4-6) Denosumab (Prolia) 60 mg SUBCUT ASDIRECTED [facility] Furosemide (Lasix) 40 mg PO WITHLUNCH [facility] Last Admin: 07/31/17 13:20 Dose: 40 mg Furosemide (Lasix) 40 mg PO WITHLUNCH [facility] Sodium Chloride (Normal Saline) 1,000 mls @ 150 mls/hr IV ASDIRECTED [facility] Last Admin: 07/24/17 09:42 Dose: 150 mls/hr Ceftriaxone Sodium 1 gm/ (Sodium Chloride) 100 mls @ 200 mls/hr IV ONETIME ONE Stop: 07/24/17 12:37 Last Admin: 07/24/17 12:45 Dose: 200 mls/hr Ceftriaxone Sodium 1 gm/ (Sodium Chloride) 100 mls @ 200 mls/hr IV Q24H [facility] Last Admin: 07/29/17 11:13 Dose: Not Given Sodium Chloride (Normal Saline) 1,000 mls @ 125 mls/hr IV ASDIRECTED [facility] Vancomycin HCl 1 gm/ Sodium (Chloride) 250 mls @ 250 mls/hr IV Q24H [facility] Last Admin: 07/26/17 21:21 Dose: 250 mls/hr Levofloxacin/Dextrose 500 mg/ (Premix) 100 mls @ 100 mls/hr IV Q24H [facility] Last Admin: 07/29/17 16:46 Dose: 100 mls/hr Sodium Chloride (Sodium Chloride 0.45%) 1,000 mls @ 50 mls/hr IV ASDIRECTED [facility] Stop: 07/31/17 16:00 Last Admin: 07/31/17 09:47 Dose: 50 mls/hr Ibuprofen (Motrin) 600 mg PO ONETIME ONE Stop: 07/24/17 09:17 Last Admin: 07/24/17 09:41 Dose: 600 mg Influenza Virus Vaccine (Pharmacy To Dose - Influenza Vaccine) 1 each IM ONETIME ONE Stop: 07/24/17 14:53 Influenza Virus Vaccine (Fluzone High-Dose 2017-18) 180 mcg IM .ONCE ONE Stop: 07/24/17 15:01 Influenza Virus Vaccine (Pharmacy To Dose - Influenza Vaccine) 0 each IM ONETIME ONE Stop: 07/27/17 13:43 Morphine Sulfate (Morphine) 2 mg IVPUSH Q2H PRN PRN Reason: Pain (severe 7-10) Stop: 07/25/17 17:49 Vancomycin HCl (Pharmacy To Dose - Vancomycin) 1 dose .XX ASDIRECTED PRN PRN Reason: RX to Dose - Exam Quality Assessment: DVT Prophylaxis General: Alert, Oriented, Cooperative, No Acute Distress HEENT: Pupils Equal, Pupils Reactive, EOMI Neck: Supple, Trachea Midline, No JVD Lungs: Clear to Auscultation, Normal Respiratory Effort Cardiovascular: Regular Rate, Bradycardia GI/Abdominal Exam: Normal Bowel Sounds, Soft, Non-Tender, No Organomegaly, No Distention (Female) Exam: Deferred Back Exam: Normal Inspection Extremities: Normal Inspection Skin: Warm Neurological: No New Focal Deficit, Normal Speech Psy/Mental Status: Alert, Normal Affect, Normal Mood - Problem List Review Problem List Initiated/Reviewed/Updated: Yes - My Orders Last 24 Hours: My Active Orders 08/01/17 12:45 Sodium Chloride 0.45% @ 75 MLS/HR(1000ml) Sodium Chloride 0.45% 1,000 ml IV ASDIRECTED - Assessment Assessment:: 1. Sepsis due to Streptococcus bovis; repeat BC negative; completing Levoquin treatment 2. Urinary tract infection due to Escherichia coli; completing Levoquin treatment. 3. Alzheimer's dementia. 4. Elevated transaminases--->etiology, unspecified-->conservative management. 5. Strept bovis-->OP colonoscopy will be decided at a later date, procedure was declined this admission 6. ARF - Plan Plan:: 1. Levoquin will be completed on Thursday, 08/03. 2. Patient will follow up with her primary care physician for colonoscopy as outpatient if needed. 3. DC 08/03/17 4. Hydrate IVF for 12 hours, hold ARB 5. BB/Ca channel blockers hold as needed if HR<60 BPM. CODE STATUS: DNR/DNI. LOS>96 hours with current treatment required.
[2017-08-01] MEDS ORDERED: Sodium Chloride 0.45% 1,000 ML IV SCH ×2 (13:00→19:00)
[2017-08-01] MEDS: Levofloxacin/Dextrose 5%-Water 250 MG in Premix Bag 1 BAG IV SCH (15:48)
[2017-08-01] MEDS: Latanoprost 0.005% Ophth Soln 2.5 ML Bottle EYEBOTH SCH (20:47)
[2017-08-01] MEDS: Donepezil 10 MG Tab PO SCH (20:47)
[2017-08-01] MEDS: Simvastatin 20 MG Tab PO SCH (20:48)
[2017-08-02] MEDS: Pantoprazole 40 MG Tab.CR PO SCH (06:02)
[2017-08-02] MEDS: Ascorbic Acid 500 MG Tab PO SCH (08:01)
[2017-08-02] MEDS: Multivitamins,Therapeutic Tab PO SCH (08:01)
[2017-08-02] MEDS: Multivitamins with Minerals/Folic Acid/Lutein/Zeaxanth Tab PO SCH (08:01)
[2017-08-02] MEDS: Iron Polysaccharides Complex 150 MG Cap PO SCH (08:02)
[2017-08-02] MEDS: Furosemide 80 MG Tab PO SCH (08:02)
[2017-08-02] MEDS: Enoxaparin 30 MG/0.3 ML Syringe SUBCUT SCH (08:02)
[2017-08-02] MEDS: Insulin Detemir 100 Units/ML 3 ML Pen SUBCUT SCH ×2 (08:02→20:57)
[2017-08-02] MEDS: Saccharomyces Boulardii (Probiotic) 250 MG Cap PO SCH ×2 (08:02→20:55)
[2017-08-02] MEDS: Aspirin 81 MG Tab.Chew PO SCH (08:02)
--- NOTE | 2017-08-02 11:11 | PCM.PN ---
- General Info Date of Service: 08/02/17 Functional Status: Reports: Tolerating Diet, Urinating - Review of Systems General: Reports: No Symptoms HEENT: Reports: No Symptoms Pulmonary: Reports: No Symptoms Cardiovascular: Reports: No Symptoms Gastrointestinal: Reports: No Symptoms Genitourinary: Reports: No Symptoms Musculoskeletal: Reports: No Symptoms Skin: Reports: No Symptoms Neurological: Reports: No Symptoms Psychiatric: Reports: No Symptoms - Patient Data Vitals - Most Recent: Last Vital Signs Temp 37.1 C 08/02/17 06:01 Pulse 62 08/02/17 06:01 Resp 14 08/02/17 06:01 BP 131/78 08/02/17 06:01 Pulse Ox 96 08/02/17 06:01 Weight - Most Recent: 70.216 kg I&O - Last 24 Hours: Intake & Output 08/01/17 08/02/17 08/02/17 22:59 06:59 14:59 Intake Total 922 728 Output Total 900 600 Balance 22 128 Lab Results Last 24 Hours: Laboratory Results - last 24 hr 08/01/17 08/02/17 Range/Units 20:35 08:00 POC Glucose 88 107 (83-110) mg/dL Tommy Results Last 24 Hours: Microbiology 07/28/17 12:30 Aerobic Blood Culture - Preliminary Blood - Venous - Lab Draw NO GROWTH AFTER 4 DAYS Anaerobic Blood Culture - Preliminary NO GROWTH AFTER 4 DAYS 07/28/17 11:50 Aerobic Blood Culture - Preliminary Blood - Venous NO GROWTH AFTER 4 DAYS Anaerobic Blood Culture - Preliminary NO GROWTH AFTER 4 DAYS Med Orders - Current: Current Medications Acetaminophen (Tylenol) 650 mg PO Q4H PRN PRN Reason: Pain (Mild 1-3)/fever Hydrocodone Bitart/Acetaminophen ([place] 325-5 Mg) 1 - 2 tab PO Q4H PRN PRN Reason: Pain Ascorbic Acid (Vitamin C) 500 mg PO DAILY [facility] Last Admin: 08/02/17 08:01 Dose: 500 mg Aspirin (Aspirin) 81 mg PO DAILY [facility] Last Admin: 08/02/17 08:02 Dose: 81 mg Carvedilol (Coreg) 6.25 mg PO BID [facility] Last Admin: 08/01/17 20:47 Dose: 6.25 mg Diltiazem HCl (Cardizem Cd) 120 mg PO DAILY [facility] Last Admin: 08/01/17 09:59 Dose: Not Given Docusate Sodium (Colace) 100 mg PO BID PRN PRN Reason: Constipation Donepezil HCl (Aricept) 5 mg PO BEDTIME [facility] Last Admin: 08/01/17 20:47 Dose: 5 mg Enoxaparin Sodium (Lovenox) 30 mg SUBCUT DAILY [facility] Last Admin: 08/02/17 08:02 Dose: 30 mg Furosemide (Lasix) 80 mg PO DAILY [facility] Last Admin: 08/02/17 08:02 Dose: 80 mg Glipizide (Glucotrol) 10 mg PO DAILY [facility] Last Admin: 08/01/17 08:30 Dose: 10 mg Levofloxacin/Dextrose 250 mg/ (Premix) 50 mls @ 50 mls/hr IV Q24H [facility] Last Admin: 08/01/17 15:48 Dose: 50 mls/hr Insulin Detemir (Levemir) 7 unit SUBCUT BID [facility] Last Admin: 08/02/17 08:02 Dose: 7 units Latanoprost (Xalatan 0.005% Ophth Soln) 0 ml EYEBOTH BEDTIME [facility] Last Admin: 08/01/17 20:47 Dose: 1 drop Losartan Potassium (Cozaar) 50 mg PO DAILY [facility] Last Admin: 08/01/17 08:32 Dose: 50 mg Magnesium Hydroxide (Milk Of Magnesia) 30 ml PO Q12H PRN PRN Reason: Constipation Multivitamins (Thera) 1 each PO DAILY [facility] Last Admin: 08/02/17 08:01 Dose: 1 each Ondansetron HCl (Zofran Odt) 4 mg PO Q6H PRN PRN Reason: nausea, able to take PO Ondansetron HCl (Zofran) 4 mg IV Q6H PRN PRN Reason: Nausea/Vomiting Pantoprazole Sodium (Protonix) 40 mg PO DAILY@0700 [facility] Last Admin: 08/02/17 06:02 Dose: 40 mg Polyethylene Glycol (Miralax) 17 gm PO DAILY PRN PRN Reason: Constipation Polysaccharide Iron Complex (Ferrex 150) 150 mg PO DAILY [facility] Last Admin: 08/02/17 08:02 Dose: 150 mg Saccharomyces Boulardii (Florastor) 250 mg PO BID [facility] Last Admin: 08/02/17 08:02 Dose: 250 mg Simvastatin (Zocor) 20 mg PO BEDTIME [facility] Last Admin: 08/01/17 20:48 Dose: 20 mg Temazepam (Restoril) 7.5 mg PO BEDTIME PRN PRN Reason: Sleep Vit A/Vit C/Vit E/Selen/Cu/Zn/Lutei (Icaps Mv) 1 tab PO DAILY [facility] Last Admin: 08/02/17 08:01 Dose: 1 tab Discontinued Medications Hydrocodone Bitart/Acetaminophen ([place] 325-5 Mg) 1 tab PO Q4H PRN PRN Reason: Pain (moderate 4-6) Hydrocodone Bitart/Acetaminophen ([place] 325-5 Mg) 2 tab PO Q4H PRN PRN Reason: Pain (moderate 4-6) Denosumab (Prolia) 60 mg SUBCUT ASDIRECTED [facility] Furosemide (Lasix) 40 mg PO WITHLUNCH [facility] Last Admin: 07/31/17 13:20 Dose: 40 mg Furosemide (Lasix) 40 mg PO WITHLUNCH [facility] Sodium Chloride (Normal Saline) 1,000 mls @ 150 mls/hr IV ASDIRECTED [facility] Last Admin: 07/24/17 09:42 Dose: 150 mls/hr Ceftriaxone Sodium 1 gm/ (Sodium Chloride) 100 mls @ 200 mls/hr IV ONETIME ONE Stop: 07/24/17 12:37 Last Admin: 07/24/17 12:45 Dose: 200 mls/hr Ceftriaxone Sodium 1 gm/ (Sodium Chloride) 100 mls @ 200 mls/hr IV Q24H [facility] Last Admin: 07/29/17 11:13 Dose: Not Given Sodium Chloride (Normal Saline) 1,000 mls @ 125 mls/hr IV ASDIRECTED [facility] Vancomycin HCl 1 gm/ Sodium (Chloride) 250 mls @ 250 mls/hr IV Q24H [facility] Last Admin: 07/26/17 21:21 Dose: 250 mls/hr Levofloxacin/Dextrose 500 mg/ (Premix) 100 mls @ 100 mls/hr IV Q24H [facility] Last Admin: 07/29/17 16:46 Dose: 100 mls/hr Sodium Chloride (Sodium Chloride 0.45%) 1,000 mls @ 50 mls/hr IV ASDIRECTED [facility] Stop: 07/31/17 16:00 Last Admin: 07/31/17 09:47 Dose: 50 mls/hr Sodium Chloride (Sodium Chloride 0.45%) 1,000 mls @ 50 mls/hr IV ASDIRECTED [facility] Stop: 08/02/17 01:00 Sodium Chloride (Sodium Chloride 0.45%) 1,000 mls @ 75 mls/hr IV ASDIRECTED [facility] Stop: 08/01/17 19:00 Last Admin: 08/01/17 13:02 Dose: 75 mls/hr Ibuprofen (Motrin) 600 mg PO ONETIME ONE Stop: 07/24/17 09:17 Last Admin: 07/24/17 09:41 Dose: 600 mg Influenza Virus Vaccine (Pharmacy To Dose - Influenza Vaccine) 1 each IM ONETIME ONE Stop: 07/24/17 14:53 Influenza Virus Vaccine (Fluzone High-Dose 2017-18) 180 mcg IM .ONCE ONE Stop: 07/24/17 15:01 Influenza Virus Vaccine (Pharmacy To Dose - Influenza Vaccine) 0 each IM ONETIME ONE Stop: 07/27/17 13:43 Morphine Sulfate (Morphine) 2 mg IVPUSH Q2H PRN PRN Reason: Pain (severe 7-10) Stop: 07/25/17 17:49 Vancomycin HCl (Pharmacy To Dose - Vancomycin) 1 dose .XX ASDIRECTED PRN PRN Reason: RX to Dose - Exam Quality Assessment: DVT Prophylaxis General: Alert, Oriented, Cooperative, No Acute Distress HEENT: Pupils Equal, Pupils Reactive, EOMI Neck: Supple, Trachea Midline, No JVD Lungs: Normal Respiratory Effort Cardiovascular: Regular Rate GI/Abdominal Exam: Normal Bowel Sounds, Soft, Non-Tender, No Organomegaly, No Distention (Female) Exam: Deferred Back Exam: Normal Inspection Extremities: Normal Inspection Skin: Warm Neurological: No New Focal Deficit Psy/Mental Status: Alert, Normal Affect, Normal Mood - Problem List Review Problem List Initiated/Reviewed/Updated: Yes - My Orders Last 24 Hours: My Active Orders 08/02/17 08:08 Communication Order [RC] BID - Assessment Assessment:: 1. Sepsis due to Streptococcus bovis; repeat BC negative; completing Levoquin treatment 2. Urinary tract infection due to Escherichia coli; completing Levoquin treatment. 3. Alzheimer's dementia. 4. Elevated transaminases--->etiology, unspecified-->conservative management. 5. Strept bovis-->OP colonoscopy will be decided at a later date, procedure was declined this admission 6. ARF-->received IVF, will hold Lasix - Plan Plan:: 1. Levoquin will be completed on Thursday, 08/03. 2. Patient will follow up with her primary care physician for colonoscopy as outpatient if needed. 3. DC 08/03/17 4. Hydrate IVF for 12 hours, hold ARB 5. BB/Ca channel blockers hold as needed if HR<60 BPM. CODE STATUS: DNR/DNI. LOS>96 hours with current treatment required.
[2017-08-02] MEDS: Diltiazem 120 MG Cap.CD PO SCH (11:12)
[2017-08-02] MEDS: Carvedilol 6.25 MG Tab PO SCH ×2 (11:12→20:55)
[2017-08-02] MEDS ORDERED: Lactated Ringers 1,000 ML IV SCH (12:15)
[2017-08-02] MEDS: Levofloxacin/Dextrose 5%-Water 250 MG in Premix Bag 1 BAG IV SCH (15:44)
[2017-08-02] MEDS: Simvastatin 20 MG Tab PO SCH (20:55)
[2017-08-02] MEDS: Latanoprost 0.005% Ophth Soln 2.5 ML Bottle EYEBOTH SCH (20:55)
[2017-08-02] MEDS: Donepezil 10 MG Tab PO SCH (20:56)
[2017-08-03] MEDS: Pantoprazole 40 MG Tab.CR PO SCH (06:47)
--- NOTE | 2017-08-03 07:02 | PCM.DCSUM1 ---
<Clarita Gates - Last Filed: 08/03/17 07:32> Discharge Summary - Hospital Course Free Text/Narrative:: Patient is an 89 year old woman with multiple comorbidities including congestive heart failure, ischemic heart disease, Alzheimer's disease, a resident of [facility] who was transferred to the emergency room for evaluation of complaints of fever. Patient insists that she feels very well and denies any problems although she is said to be confused but she is oriented to time place and person. She was said to have spiked fever at the [facility] overnight and was then brought to the emergency room for further evaluation. At the emergency room, vital signs revealed a temperature of 37.2C and laboratory investigations revealed a WBC of 13.7, BUNs /creatinine of 24/1.3, lactic acid level of 2.2, AST of 201, etiology of 169, alkaline phosphatase of 207. Urinalysis revealed presence of leukocyte esterase and bacteria suspicious for urinary tract infection. She received 1 g of Rocephin and blood as well as urine samples were collected for culture. Review of patient's medical records showed that she was seen at this facility for evaluation of fever in December and was found to have urinary tract infection due to Klebsiella pneumonia sensitive to Rocephin. She will be admitted for IV antibiotic therapy. Blood cultures were then positive for streptococcus bovis x 3 bottles. She was treated with vancomycin once strep was identified, once sensitivity returned sensitive to levaquin she was transitioned to levaquin IV Q24 hours. Troponin was elevated initially, trended down. Thought to be NSTEMI. Echocardiogram was obtained due to troponin and bacteria strep bovis which can be associated with endocarditis. EF was excellent at 60% with no valvular abnormalities consistent with endocarditis noted. General Surgeon cardiac catheterization technologist was consulted as s. bovis can also be associated with colon cancer. He defers colonoscopy eval at this time. See his consult not for further details. Will recommend to PCP, Dr. Ling to further discuss this option with patient once discharged. Abdominal US was obtained showing intrahepatic air with recommendations for CT to coorelate; CT of abdomen/pelvis was obtained due to elevated liver enzymes with intrahepatic biliary air and a 2.4mm calcification at the distal common bile duct close to the common bile duct with in the pancreas. LFT's continued to be elevated and fluctuant during her stay- AST: 80's-200's, ALT 150's-200's and Alk Phos 150's- 200's. GGT was checked and was 122. Bili was WNL. Will recommend recheck in one week with follow up with PCP. WBC returned WNL within 2-3 days into her stay and remained. CRP trended down to normal on day of discharge. She was afebrile with VSS within the first few days of her stay. She was up ambulatory, eating, drinking. She will be discharged back to [facility] facility today. Follow up with Dr. Ling within one week of discharge. Discussed and reviewed case with Dr. Ling this morning; his insight is very helpful as she has hx of cholecystectomy with hx of complication which may be current problem, suspects cholangitis as current diagnosis which fits her current symptoms and septic picture presently. He will continue to monitor LFT' s and follow up with her. - Discharge Data Discharge Date: 08/03/17 (admit date 07/24/17) Discharge Disposition: DC/Tfer to Other Condition: Good - Discharge Diagnosis/Problem(s) (1) Infection due to Streptococcus bovis SNOMED Code(s): 77189038 ICD Code: A49.1 - STREPTOCOCCAL INFECTION, UNSPECIFIED SITE Status: Resolved Priority: High (2) Escherichia coli urinary tract infection SNOMED Code(s): 237669967 ICD Code: N39.0 - URINARY TRACT INFECTION, SITE NOT SPECIFIED; B96.20 - UNSP ESCHERICHIA COLI THE CAUSE OF DISEASES CLASSD ELSWHR Status: Resolved Priority: High (3) Non-STEMI (non-ST elevated myocardial infarction) SNOMED Code(s): 982944734 ICD Code: I21.4 - NON-ST ELEVATION (NSTEMI) MYOCARDIAL INFARCTION Status: Acute Priority: High (4) Abnormal transaminases SNOMED Code(s): 924017178 ICD Code: R74.8 - ABNORMAL LEVELS OF OTHER SERUM ENZYMES Status: Acute Priority: High (5) CHF (congestive heart failure) SNOMED Code(s): 12738757 ICD Code: I50.9 - HEART FAILURE, UNSPECIFIED Status: Resolved Priority: High QualifierTitle: Congestive heart failure type: diastolic Congestive heart failure chronicity: acute on chronic Qualified Code(s): I50.33 - Acute on chronic diastolic (congestive) heart failure (6) Elevated troponin SNOMED Code(s): 793045436 ICD Code: R74.8 - ABNORMAL LEVELS OF OTHER SERUM ENZYMES Status: Resolved Priority: High (7) Fever SNOMED Code(s): 585011217 ICD Code: R50.9 - FEVER, UNSPECIFIED Status: Resolved Priority: High QualifierTitle: Encounter type: initial encounter (8) Lactic acidosis SNOMED Code(s): 24618362 ICD Code: E87.2 - ACIDOSIS Status: Resolved Priority: High Onset Date: ~07/24/17 (9) Syncope due to orthostatic hypotension SNOMED Code(s): 508223992 ICD Code: I95.1 - ORTHOSTATIC HYPOTENSION Status: Resolved Priority: High (10) Dementia SNOMED Code(s): 42040383 ICD Code: F03.90 - UNSPECIFIED DEMENTIA WITHOUT BEHAVIORAL DISTURBANCE Status: Chronic Priority: Low QualifierTitle: Dementia type: Alzheimer's disease Alzheimer's disease onset: late-onset Dementia behavioral disturbance: without behavioral disturbance Qualified Code(s): G30.1 - Alzheimer's disease with late onset; F02.80 - Dementia in other diseases classified elsewhere without behavioral disturbance; F02.80 - Dementia in other diseases classified elsewhere without behavioral disturbance; F02.80 - Dementia in other diseases classified elsewhere without behavioral disturbance - Patient Summary/Data Operative Procedure(s) Performed: None- Dr. Veloz consulted for colonoscopy but deferred further workup during hospital stay. Will recommend further discussion with PCP upon discharge for consult for further evaluation and colonoscopy as specific bacteria triggering patients bacteremia, streptococcus bovis, has been found to coorelate with colon cancer and endocarditis. Patient' s echocardiogram was unremarkable for valvular pathology during her stay. Complications: None- Received full treatment of antibiotic course, 6 days total of Rocephin, 3 days total of Vancomycin and 6 days total of Levaquin-- 10 days total of Antibiotic; along with Florastor. Consults: Consultations 07/24/17 17:46 OT Evaluation and Treatment [CONS] Routine PT Evaluation and Treatment [CONS] Routine 07/26/17 12:47 Consult to Physician [CONS] Routine Labs Pending at D/C: None Recommended Follow-up Testing/Procedures: Follow up with PCP, Dr. Ling within one week of discharge Consider Colonoscopy should patient wish to pursue further evaluation. Planned Operative Procedure(s) after DC: Possible Colonoscopy Hospital Course: As above - Patient Instructions Diet: Heart Healthy Diet, Low Sodium, Diabetic Diet Activity: As Tolerated Driving: Do Not Drive Showering/Bathing: May Shower Notify Provider of: Fever, Increased Pain, Nausea and/or Vomiting - Discharge Plan Prescriptions/Med Rec: Aspirin [Ecotrin] 325 mg PO DAILY #30 tab.ec Bifidobacter. Bifidum/B.Longum [Florajen Bifidoblend] 460 mg PO DAILY #30 capsule Home Medications: Home Meds Ascorbic Acid [C-500] 500 mg PO DAILY 07/27/16 [History] B2/Vit A,C & E/Lut/Zeaxanth/Mn [Icaps] 1 each PO DAILY 07/27/16 [History] Carvedilol 6.25 mg PO BID 07/27/16 [History] Cyanocobalamin (Vitamin B-12) [Cyanocobalamin Injection] 1,000 mcg IJ ASDIRECTED 07/27/16 [History] Denosumab [Prolia] 60 mg SUBCUT ASDIRECTED 07/27/16 [History] Diltiazem HCl [Diltiazem 24Hr Cd] 120 mg PO DAILY 07/27/16 [History] Donepezil [Aricept] 5 mg PO BEDTIME 07/27/16 [History] Furosemide 40 mg PO WITHLUNCH 07/27/16 [History] Furosemide 80 mg PO DAILY 07/27/16 [History] Insulin Glarg,Human.Rec.Analog [LantUS Solostar] 14 units SQ BEDTIME 07/27/16 [ History] Iron Polysaccharide Complex [Poly-Iron] 150 mg PO DAILY 07/27/16 [History] Losartan [Cozaar] 50 mg PO DAILY 07/27/16 [History] Multivitamin [Daily Mirtha] 1 each PO DAILY 07/27/16 [History] Omeprazole 20 mg PO DAILY 07/27/16 [History] Travoprost [Travatan Z] 1 drop EYEBOTH BEDTIME 07/27/16 [History] atorvaSTATin [Lipitor] 20 mg PO BEDTIME 07/27/16 [History] glipiZIDE [Glipizide] 10 mg PO DAILY 07/27/16 [History] Acetaminophen 650 mg PO Q4HR PRN 07/24/17 [History] Acetaminophen [Tylenol Extra Strength] 500 mg PO Q6HR PRN 07/24/17 [History] Aspirin [Ecotrin] 325 mg PO DAILY #30 tab.ec 08/03/17 [Rx] Bifidobacter. Bifidum/B.Longum [Florajen Bifidoblend] 460 mg PO DAILY #30 capsule 08/03/17 [Rx] Patient Handouts: Sepsis, Adult, Urinary Tract Infection, Adult, Chronic Kidney Disease, [id number], Heart Failure, [id number], Bacteremia Forms: ED Department Discharge Referrals: Bob Ling MD [Primary Care Provider] - (Please call and schedule a follow up in 1-2 weeks.) - Discharge Summary/Plan Comment DC Time >30 min.: Yes (45 minutes) - General Info Date of Service: 08/03/17 Admission Dx/Problem (Free Text: Admission Diagnosis/Problem Admission Diagnosis/Problem Fever Maegan is seen this morning, very pleasant and doing well. No complaints of pain /discomfort. Good appetite, is up and moving around. No nausea, moving bowels and without diarrhea. Completed full course of antibiotic x 10 days for strep bovis - sensitive to levaquin. [facility]. Functional Status: Reports: Pain Controlled (Denies any c/o pain), Tolerating Diet, Ambulating, Urinating, Incentive Spirometry. Denies: New Symptoms - Review of Systems General: Reports: Appetite. Denies: No Symptoms, Fever, Weakness, Fatigue, Night Sweats HEENT: Reports: No Symptoms Pulmonary: Reports: No Symptoms. Denies: Shortness of Breath, Cough Cardiovascular: Reports: No Symptoms. Denies: Chest Pain, Palpitations, Dyspnea on Exertion Gastrointestinal: Reports: No Symptoms. Denies: Abdominal Pain, Diarrhea, Nausea Genitourinary: Denies: No Symptoms, Dysuria, Frequency Musculoskeletal: Reports: No Symptoms Neurological: Reports: Confusion (minimal, baseline dementia) - Patient Data Vitals - Most Recent: Last Vital Signs Temp 98.2 F 08/03/17 00:05 Pulse 64 08/03/17 00:05 Resp 14 08/03/17 00:05 BP 126/68 08/03/17 00:05 Pulse Ox 97 08/03/17 00:05 Weight - Most Recent: 69.655 kg I&O - Last 24 hours: Intake & Output 08/02/17 08/03/17 08/03/17 22:59 06:59 14:59 Intake Total 946 300 Output Total 500 850 Balance 446 -550 Lab Results - Last 24 hrs: Laboratory Results - last 24 hr 08/02/17 08/02/17 08/03/17 Range/Units 08:00 20:56 06:22 POC Glucose 107 141 H 106 (83-110) mg/dL [facility] Results - Last 24 hrs: Microbiology 07/28/17 12:30 Aerobic Blood Culture - Preliminary Blood - Venous - Lab Draw NO GROWTH AFTER 5 DAYS Anaerobic Blood Culture - Preliminary NO GROWTH AFTER 5 DAYS 07/28/17 11:50 Aerobic Blood Culture - Preliminary Blood - Venous NO GROWTH AFTER 5 DAYS Anaerobic Blood Culture - Preliminary NO GROWTH AFTER 5 DAYS Med Orders - Current: Current Medications Acetaminophen (Tylenol) 650 mg PO Q4H PRN PRN Reason: Pain (Mild 1-3)/fever Hydrocodone Bitart/Acetaminophen ([place] 325-5 Mg) 1 - 2 tab PO Q4H PRN PRN Reason: Pain Ascorbic Acid (Vitamin C) 500 mg PO DAILY [facility] Last Admin: 08/02/17 08:01 Dose: 500 mg Aspirin (Ecotrin) 325 mg PO DAILY [facility] Carvedilol (Coreg) 6.25 mg PO BID [facility] Last Admin: 08/02/17 20:55 Dose: 6.25 mg Diltiazem HCl (Cardizem Cd) 120 mg PO DAILY [facility] Last Admin: 08/02/17 11:12 Dose: Not Given Docusate Sodium (Colace) 100 mg PO BID PRN PRN Reason: Constipation Donepezil HCl (Aricept) 5 mg PO BEDTIME [facility] Last Admin: 08/02/17 20:56 Dose: 5 mg Enoxaparin Sodium (Lovenox) 30 mg SUBCUT DAILY [facility] Last Admin: 08/02/17 08:02 Dose: 30 mg Furosemide (Lasix) 80 mg PO DAILY [facility] Last Admin: 08/02/17 08:02 Dose: 80 mg Glipizide (Glucotrol) 10 mg PO DAILY [facility] Last Admin: 08/02/17 08:02 Dose: 10 mg Levofloxacin/Dextrose 250 mg/ (Premix) 50 mls @ 50 mls/hr IV Q24H [facility] Last Admin: 08/02/17 15:44 Dose: 50 mls/hr Insulin Detemir (Levemir) 7 unit SUBCUT BID [facility] Last Admin: 08/02/17 20:57 Dose: 7 units Latanoprost (Xalatan 0.005% Ophth Soln) 0 ml EYEBOTH BEDTIME [facility] Last Admin: 08/02/17 20:55 Dose: 1 drop Losartan Potassium (Cozaar) 50 mg PO DAILY [facility] Last Admin: 08/01/17 08:32 Dose: 50 mg Magnesium Hydroxide (Milk Of Magnesia) 30 ml PO Q12H PRN PRN Reason: Constipation Multivitamins (Thera) 1 each PO DAILY [facility] Last Admin: 08/02/17 08:01 Dose: 1 each Ondansetron HCl (Zofran Odt) 4 mg PO Q6H PRN PRN Reason: nausea, able to take PO Ondansetron HCl (Zofran) 4 mg IV Q6H PRN PRN Reason: Nausea/Vomiting Pantoprazole Sodium (Protonix) 40 mg PO DAILY@0700 [facility] Last Admin: 08/03/17 06:47 Dose: 40 mg Polyethylene Glycol (Miralax) 17 gm PO DAILY PRN PRN Reason: Constipation Polysaccharide Iron Complex (Ferrex 150) 150 mg PO DAILY [facility] Last Admin: 08/02/17 08:02 Dose: 150 mg Saccharomyces Boulardii (Florastor) 250 mg PO BID [facility] Last Admin: 08/02/17 20:55 Dose: 250 mg Simvastatin (Zocor) 20 mg PO BEDTIME [facility] Last Admin: 08/02/17 20:55 Dose: 20 mg Temazepam (Restoril) 7.5 mg PO BEDTIME PRN PRN Reason: Sleep Vit A/Vit C/Vit E/Selen/Cu/Zn/Lutei (Icaps Mv) 1 tab PO DAILY [facility] Last Admin: 08/02/17 08:01 Dose: 1 tab Discontinued Medications Hydrocodone Bitart/Acetaminophen ([place] 325-5 Mg) 1 tab PO Q4H PRN PRN Reason: Pain (moderate 4-6) Hydrocodone Bitart/Acetaminophen ([place] 325-5 Mg) 2 tab PO Q4H PRN PRN Reason: Pain (moderate 4-6) Aspirin (Aspirin) 81 mg PO DAILY [facility] Last Admin: 08/02/17 08:02 Dose: 81 mg Denosumab (Prolia) 60 mg SUBCUT ASDIRECTED [facility] Furosemide (Lasix) 40 mg PO WITHLUNCH [facility] Last Admin: 07/31/17 13:20 Dose: 40 mg Furosemide (Lasix) 40 mg PO WITHLUNCH [facility] Sodium Chloride (Normal Saline) 1,000 mls @ 150 mls/hr IV ASDIRECTED [facility] Last Admin: 07/24/17 09:42 Dose: 150 mls/hr Ceftriaxone Sodium 1 gm/ (Sodium Chloride) 100 mls @ 200 mls/hr IV ONETIME ONE Stop: 07/24/17 12:37 Last Admin: 07/24/17 12:45 Dose: 200 mls/hr Ceftriaxone Sodium 1 gm/ (Sodium Chloride) 100 mls @ 200 mls/hr IV Q24H [facility] Last Admin: 07/29/17 11:13 Dose: Not Given Sodium Chloride (Normal Saline) 1,000 mls @ 125 mls/hr IV ASDIRECTED [facility] Vancomycin HCl 1 gm/ Sodium (Chloride) 250 mls @ 250 mls/hr IV Q24H [facility] Last Admin: 07/26/17 21:21 Dose: 250 mls/hr Levofloxacin/Dextrose 500 mg/ (Premix) 100 mls @ 100 mls/hr IV Q24H [facility] Last Admin: 07/29/17 16:46 Dose: 100 mls/hr Sodium Chloride (Sodium Chloride 0.45%) 1,000 mls @ 50 mls/hr IV ASDIRECTED [facility] Stop: 07/31/17 16:00 Last Admin: 07/31/17 09:47 Dose: 50 mls/hr Sodium Chloride (Sodium Chloride 0.45%) 1,000 mls @ 50 mls/hr IV ASDIRECTED [facility] Stop: 08/02/17 01:00 Sodium Chloride (Sodium Chloride 0.45%) 1,000 mls @ 75 mls/hr IV ASDIRECTED [facility] Stop: 08/01/17 19:00 Last Admin: 08/01/17 13:02 Dose: 75 mls/hr Lactated Ringer's (Ringers, Lactated) 1,000 mls @ 75 mls/hr IV ASDIRECTED [facility] Stop: 08/02/17 18:15 Last Admin: 08/02/17 12:56 Dose: 75 mls/hr Ibuprofen (Motrin) 600 mg PO ONETIME ONE Stop: 07/24/17 09:17 Last Admin: 07/24/17 09:41 Dose: 600 mg Influenza Virus Vaccine (Pharmacy To Dose - Influenza Vaccine) 1 each IM ONETIME ONE Stop: 07/24/17 14:53 Influenza Virus Vaccine (Fluzone High-Dose 2016-) 180 mcg IM .ONCE ONE Stop: 07/24/17 15:01 Influenza Virus Vaccine (Pharmacy To Dose - Influenza Vaccine) 0 each IM ONETIME ONE Stop: 07/27/17 13:43 Morphine Sulfate (Morphine) 2 mg IVPUSH Q2H PRN PRN Reason: Pain (severe 7-10) Stop: 07/25/17 17:49 Vancomycin HCl (Pharmacy To Dose - Vancomycin) 1 dose .XX ASDIRECTED PRN PRN Reason: RX to Dose - Exam Quality Assessment: Reports: DVT Prophylaxis General: Reports: Alert, Cooperative, No Acute Distress HEENT: Reports: Pupils Equal, EOMI, Mucous Membr. Moist/[place] Neck: Reports: Supple Lungs: Reports: Clear to Auscultation, Normal Respiratory Effort, Decreased Breath Sounds (bases bilat) Cardiovascular: Reports: Irregular Rhythm GI/Abdominal Exam: Normal Bowel Sounds, Soft, Non-Tender (Female) Exam: Deferred Rectal (Female) Exam: Deferred Back Exam: Reports: Normal Inspection Extremities: No Pedal Edema, Normal Capillary Refill Neurological: Reports: No New Focal Deficit Psy/Mental Status: Reports: Alert, Normal Affect, Normal Mood *Q Meaningful Use (DIS) - VTE *Q VTE Criteria *Q: - Stroke *Q Stroke Criteria *Q: - AMI *Q AMI Criteria *Q: <Brianna Taylor - Last Filed: 08/05/17 17:51> Discharge Summary - Hospital Course Free Text/Narrative:: Follow up appt with GI - Patient Summary/Data Consults: Consultations 07/24/17 17:46 OT Evaluation and Treatment [CONS] Routine PT Evaluation and Treatment [CONS] Routine 07/26/17 12:47 Consult to Physician [CONS] Routine - Patient Data Vitals - Most Recent: Last Vital Signs Temp 36.4 C 08/03/17 07:40 Pulse 58 L 08/03/17 09:03 Resp 14 08/03/17 00:05 BP 121/42 L 08/03/17 09:21 Pulse Ox 98 08/03/17 09:03 [facility] Results - Last 24 hrs: Microbiology 07/28/17 12:30 Aerobic Blood Culture - Final Blood - Venous - Lab Draw NO GROWTH AFTER 7 DAYS Anaerobic Blood Culture - Final NO GROWTH AFTER 7 DAYS 07/28/17 11:50 Aerobic Blood Culture - Final Blood - Venous NO GROWTH AFTER 7 DAYS Anaerobic Blood Culture - Final NO GROWTH AFTER 7 DAYS Med Orders - Current: Current Medications Discontinued Medications Acetaminophen (Tylenol) 650 mg PO Q4H PRN PRN Reason: Pain (Mild 1-3)/fever Hydrocodone Bitart/Acetaminophen ([place] 325-5 Mg) 1 tab PO Q4H PRN PRN Reason: Pain (moderate 4-6) Hydrocodone Bitart/Acetaminophen ([place] 325-5 Mg) 2 tab PO Q4H PRN PRN Reason: Pain (moderate 4-6) Hydrocodone Bitart/Acetaminophen ([place] 325-5 Mg) 1 - 2 tab PO Q4H PRN PRN Reason: Pain Ascorbic Acid (Vitamin C) 500 mg PO DAILY [facility] Last Admin: 08/03/17 09:01 Dose: 500 mg Aspirin (Aspirin) 81 mg PO DAILY [facility] Last Admin: 08/02/17 08:02 Dose: 81 mg Aspirin (Ecotrin) 325 mg PO DAILY [facility] Last Admin: 08/03/17 09:01 Dose: 325 mg Carvedilol (Coreg) 6.25 mg PO BID [facility] Last Admin: 08/03/17 09:04 Dose: Not Given Denosumab (Prolia) 60 mg SUBCUT ASDIRECTED [facility] Diltiazem HCl (Cardizem Cd) 120 mg PO DAILY [facility] Last Admin: 08/03/17 09:05 Dose: Not Given Docusate Sodium (Colace) 100 mg PO BID PRN PRN Reason: Constipation Donepezil HCl (Aricept) 5 mg PO BEDTIME [facility] Last Admin: 08/02/17 20:56 Dose: 5 mg Enoxaparin Sodium (Lovenox) 30 mg SUBCUT DAILY [facility] Last Admin: 08/03/17 09:02 Dose: 30 mg Furosemide (Lasix) 40 mg PO WITHLUNCH [facility] Last Admin: 07/31/17 13:20 Dose: 40 mg Furosemide (Lasix) 80 mg PO DAILY [facility] Last Admin: 08/02/17 08:02 Dose: 80 mg Furosemide (Lasix) 40 mg PO WITHLUNCH [facility] Glipizide (Glucotrol) 10 mg PO DAILY [facility] Last Admin: 08/03/17 09:01 Dose: 10 mg Sodium Chloride (Normal Saline) 1,000 mls @ 150 mls/hr IV ASDIRECTED [facility] Last Admin: 07/24/17 09:42 Dose: 150 mls/hr Ceftriaxone Sodium 1 gm/ (Sodium Chloride) 100 mls @ 200 mls/hr IV ONETIME ONE Stop: 07/24/17 12:37 Last Admin: 07/24/17 12:45 Dose: 200 mls/hr Ceftriaxone Sodium 1 gm/ (Sodium Chloride) 100 mls @ 200 mls/hr IV Q24H [facility] Last Admin: 07/29/17 11:13 Dose: Not Given Sodium Chloride (Normal Saline) 1,000 mls @ 125 mls/hr IV ASDIRECTED [facility] Vancomycin HCl 1 gm/ Sodium (Chloride) 250 mls @ 250 mls/hr IV Q24H [facility] Last Admin: 07/26/17 21:21 Dose: 250 mls/hr Levofloxacin/Dextrose 500 mg/ (Premix) 100 mls @ 100 mls/hr IV Q24H [facility] Last Admin: 07/29/17 16:46 Dose: 100 mls/hr Levofloxacin/Dextrose 250 mg/ (Premix) 50 mls @ 50 mls/hr IV Q24H [facility] Last Admin: 08/02/17 15:44 Dose: 50 mls/hr Sodium Chloride (Sodium Chloride 0.45%) 1,000 mls @ 50 mls/hr IV ASDIRECTED [facility] Stop: 07/31/17 16:00 Last Admin: 07/31/17 09:47 Dose: 50 mls/hr Sodium Chloride (Sodium Chloride 0.45%) 1,000 mls @ 50 mls/hr IV ASDIRECTED [facility] Stop: 08/02/17 01:00 Sodium Chloride (Sodium Chloride 0.45%) 1,000 mls @ 75 mls/hr IV ASDIRECTED [facility] Stop: 08/01/17 19:00 Last Admin: 08/01/17 13:02 Dose: 75 mls/hr Lactated Ringer's (Ringers, Lactated) 1,000 mls @ 75 mls/hr IV ASDIRECTED [facility] Stop: 08/02/17 18:15 Last Admin: 08/02/17 12:56 Dose: 75 mls/hr Ibuprofen (Motrin) 600 mg PO ONETIME ONE Stop: 07/24/17 09:17 Last Admin: 07/24/17 09:41 Dose: 600 mg Influenza Virus Vaccine (Pharmacy To Dose - Influenza Vaccine) 1 each IM ONETIME ONE Stop: 07/24/17 14:53 Influenza Virus Vaccine (Fluzone High-Dose 2017-18) 180 mcg IM .ONCE ONE Stop: 07/24/17 15:01 Influenza Virus Vaccine (Pharmacy To Dose - Influenza Vaccine) 0 each IM ONETIME ONE Stop: 07/27/17 13:43 Insulin Detemir (Levemir) 7 unit SUBCUT BID [facility] Last Admin: 08/03/17 09:01 Dose: 7 units Latanoprost (Xalatan 0.005% [facility] Sol) 0 ml EYEBOTH BEDTIME [facility] Last Admin: 08/02/17 20:55 Dose: 1 drop Losartan Potassium (Cozaar) 50 mg PO DAILY [facility] Last Admin: 08/03/17 09:19 Dose: 50 mg Magnesium Hydroxide (Milk Of Magnesia) 30 ml PO Q12H PRN PRN Reason: Constipation Morphine Sulfate (Morphine) 2 mg IVPUSH Q2H PRN PRN Reason: Pain (severe 7-10) Stop: 07/25/17 17:49 Multivitamins (Thera) 1 each PO DAILY [facility] Last Admin: 08/03/17 09:01 Dose: 1 each Ondansetron HCl (Zofran Odt) 4 mg PO Q6H PRN PRN Reason: nausea, able to take PO Ondansetron HCl (Zofran) 4 mg IV Q6H PRN PRN Reason: Nausea/Vomiting Pantoprazole Sodium (Protonix) 40 mg PO DAILY@0700 [facility] Last Admin: 08/03/17 06:47 Dose: 40 mg Polyethylene Glycol (Miralax) 17 gm PO DAILY PRN PRN Reason: Constipation Polysaccharide Iron Complex (Ferrex 150) 150 mg PO DAILY [facility] Last Admin: 08/03/17 09:01 Dose: 150 mg Saccharomyces Boulardii (Florastor) 250 mg PO BID [facility] Last Admin: 08/03/17 09:01 Dose: 250 mg Simvastatin (Zocor) 20 mg PO BEDTIME [facility] Last Admin: 08/02/17 20:55 Dose: 20 mg Temazepam (Restoril) 7.5 mg PO BEDTIME PRN PRN Reason: Sleep Vancomycin HCl (Pharmacy To Dose - Vancomycin) 1 dose .XX ASDIRECTED PRN PRN Reason: RX to Dose Vit A/Vit C/Vit E/Selen/Cu/Zn/Lutei (Icaps Mv) 1 tab PO DAILY [facility] Last Admin: 08/03/17 09:01 Dose: 1 tab *Q Meaningful Use (DIS) - VTE *Q VTE Criteria *Q: - Stroke *Q Stroke Criteria *Q: - AMI *Q AMI Criteria *Q:
[2017-08-03] MEDS ORDERED: Aspirin 325 MG Tab.EC PO SCH (09:00)
[2017-08-03] MEDS: Iron Polysaccharides Complex 150 MG Cap PO SCH (09:01)
[2017-08-03] MEDS: Multivitamins with Minerals/Folic Acid/Lutein/Zeaxanth Tab PO SCH (09:01)
[2017-08-03] MEDS: Saccharomyces Boulardii (Probiotic) 250 MG Cap PO SCH (09:01)
[2017-08-03] MEDS: Ascorbic Acid 500 MG Tab PO SCH (09:01)
[2017-08-03] MEDS: Insulin Detemir 100 Units/ML 3 ML Pen SUBCUT SCH (09:01)
[2017-08-03] MEDS: Multivitamins,Therapeutic Tab PO SCH (09:01)
[2017-08-03] MEDS: Enoxaparin 30 MG/0.3 ML Syringe SUBCUT SCH (09:02)
[2017-08-03] MEDS: Carvedilol 6.25 MG Tab PO SCH (09:04)
[2017-08-03] MEDS: Diltiazem 120 MG Cap.CD PO SCH (09:05)
[2017-08-03] MEDS: Losartan 25 MG Tab PO SCH (09:19)
[2017-08-03 10:05] VITALS: BP 121/42
[2017-08-03] MEDS ORDERED: Furosemide 40 MG Tab PO SCH (11:00)
== END 2017-08-03 10:34 | disposition other institution (70) | DRG 872 ==
LOC: JD.ED 08:54 → SUPCPDRO 08:54 → JD.MS 14:02
PROVIDERS: ADMIT Hospitalist; ATTEND Hospitalist
DX: I21.4 Non-ST elevation (NSTEMI) myocardial infarction (principal); I50.33 Acute on chronic diastolic (congestive) heart failure; N10 Acute pyelonephritis; A40.8 Other streptococcal sepsis; N39.0 Urinary tract infection, site not specified; E11.22 Type 2 diabetes mellitus with diabetic chronic kidney disease; Z79.84 Long term (current) use of oral hypoglycemic drugs; E87.2 Acidosis; N17.9 Acute kidney failure, unspecified; I13.0 Hypertensive heart and chronic kidney disease with heart failure and stage 1 through stage 4 chronic kidney disease, or unspecified chronic kidney disease; I50.30 Unspecified diastolic (congestive) heart failure; B96.20 Unspecified Escherichia coli [E. coli] as the cause of diseases classified elsewhere; R74.8 Abnormal levels of other serum enzymes; G30.9 Alzheimer's disease, unspecified; F02.80 Dementia in other diseases classified elsewhere, unspecified severity, without behavioral disturbance, psychotic disturbance, mood disturbance, and anxiety; I25.9 Chronic ischemic heart disease, unspecified; N18.9 Chronic kidney disease, unspecified; M19.90 Unspecified osteoarthritis, unspecified site; E11.9 Type 2 diabetes mellitus without complications; R32 Unspecified urinary incontinence; E55.9 Vitamin D deficiency, unspecified; Z88.0 Allergy status to penicillin; Z79.82 Long term (current) use of aspirin; Z79.899 Other long term (current) drug therapy; Z66 Do not resuscitate; F32.9 Major depressive disorder, single episode, unspecified; E78.5 Hyperlipidemia, unspecified; K21.9 Gastro-esophageal reflux disease without esophagitis; F09 Unspecified mental disorder due to known physiological condition; E53.8 Deficiency of other specified B group vitamins
CPT/HCPCS: 71010; 76705; 96361; 96365; 99285; 93005; 85025; 85610; 81001; 36415; 80053; 83735; 82977; 82553; 84484; 83880; 83605; 86140; 87086; 87186 ×2; 87077; 87040 ×2; 87088; A9270; J7040; J7030; J0696; P9612; 74150; 74150-26; 80048; 80076; 82962; 87328; 87329; 87641; 89055; 93010; 93306; 97161-GP; 97165-GO; J1650; J1815-GY; J1956; J3370; J7050; J7120